=== PATIENT | female | born 1970 | race Caucasian/White ===

== ENCOUNTER → 2020-08-14 15:30 | Outpatient (BNVA) | payer MEDICARE, MEDICAID, SELFPAY | PROVIDERS: Visit Provider Physician Assistant | DX: R11.2 Nausea with vomiting, unspecified (principal) | CPT/HCPCS: 99212 ==

== ENCOUNTER → 2020-09-08 07:45 | Outpatient (REF) | payer MEDICARE, MEDICAID, SELFPAY ==
--- NOTE | 2020-09-08 07:53 | NM_ITS ---
EXAMINATION: RADIONUCLIDE SOLID FOOD GASTRIC EMPTYING 4-HOUR STUDY CLINICAL INFORMATION: Nausea and vomiting. COMPARISON: No previous gastric emptying study is available for comparison. TECHNIQUE: A standard meal consisting of 4 oz of Egg Beaters brand tagged with 1.0 mCi Tc-99m Sulfur Colloid, 8 oz water and 2 slices of toast with jelly was administered orally to the patient. Images were obtained using a dual head gamma camera in the anterior and posterior projections over of the stomach immediately post ingestion and at hourly intervals up to 3 hours post ingestion. Images were not obtained at 4 hours due to the minimal retention at 3 hours. The anterior and posterior counts at each time interval were averaged using the geometric mean and expressed as percentage of the immediate post ingestion counts. FINDINGS: There is good visualization of activity in the stomach immediately post ingestion. As the study progresses, there is good clearance of activity from the stomach and visualization of progressively increasing small bowel activity. By the end of the study, there is almost no retention noted in the stomach. Retention in the stomach at each time interval was: 1 hour 63% (normal 37%-90%) 2 hours 21% (normal 30%-60%) 3 hours 7% 4 hours (Not Obtained) (normal 0%-10%) NM/NM gastric emptying study IMPRESSION: Normal solid food gastric emptying study.
== END ==
LOC: HO.NUCMED 07:45
PROVIDERS: Visit Provider Physician Assistant
DX: R11.2 Nausea with vomiting, unspecified (principal)
CPT/HCPCS: 78264; A9541

== ENCOUNTER → 2020-09-13 08:40 | Outpatient (BNVA) | payer MEDICARE, MEDICAID, SELFPAY | PROVIDERS: Visit Provider Physician Assistant | DX: R11.2 Nausea with vomiting, unspecified (principal); E11.9 Type 2 diabetes mellitus without complications; F17.200 Nicotine dependence, unspecified, uncomplicated; Z79.899 Other long term (current) drug therapy | CPT/HCPCS: Q3014 ==

== ENCOUNTER → 2020-12-12 10:32 | Outpatient (BNVA) | payer MEDICARE, MEDICAID, SELFPAY | PROVIDERS: PCP Hospitalist; Visit Provider Physician Assistant | DX: Z13.89 Encounter for screening for other disorder (principal) | CPT/HCPCS: Q3014 ==

== ENCOUNTER 2021-02-07 09:01 | Outpatient (REF) | payer MEDICARE, MEDICAID, SELFPAY ==
--- NOTE | ~2021-02-07 | MM_ITS ---
EXAMINATION: MM SCREENING DIGITAL BREAST TOMOSYNTHESIS, BILATERAL CLINICAL INFORMATION: Screening. Asymptomatic. The lifetime risk of breast cancer based on the Tyrer-Cuzick Model is 10%. COMPARISON: Mammography: 08/09/2019, 08/06/2018, 07/24/2017 TECHNIQUE: Digital breast tomosynthesis is performed in both the craniocaudal and mediolateral oblique views along with computer-aided detection (CAD). Synthesized 2D images are generated from the tomosynthesis. FINDINGS: There are scattered areas of fibroglandular density (ACR BI-RADS breast composition Category b). There are no significant masses, abnormal calcifications, or other abnormalities. No significant changes from prior exam. MM/MM tomosynthesis screening BI IMPRESSION: No mammographic evidence of malignancy. ASSESSMENT: BI-RADS 1: Negative RECOMMENDATION: Routine annual mammography screening. This patient's information was entered into a reminder system with a target due date for their next mammogram.
== END 2021-02-07 09:02 | disposition home or self-care (01) ==
LOC: HO.MAMMO 09:01
PROVIDERS: PCP Hospitalist; Visit Provider Hospitalist
DX: Z12.31 Encounter for screening mammogram for malignant neoplasm of breast (principal)
CPT/HCPCS: 77063; 77067

== ENCOUNTER → 2021-03-12 08:40 | Outpatient (BNVA) | payer MEDICARE, MEDICAID, SELFPAY | PROVIDERS: PCP Hospitalist; Visit Provider Physician Assistant | CPT/HCPCS: Q3014 ==

== ENCOUNTER 2022-02-14 13:53 | Outpatient (REF) | payer MEDICARE, MEDICAID, SELFPAY ==
--- NOTE | ~2022-02-14 | MM_ITS ---
EXAMINATION: MM SCREENING DIGITAL BREAST TOMOSYNTHESIS, BILATERAL CLINICAL INFORMATION: Screening. Asymptomatic. The lifetime risk of breast cancer based on the Tyrer-Cuzick Model is 9.4%. COMPARISON: Mammography: 02/07/2021 and studies dating back to 07/24/2017. TECHNIQUE: Digital breast tomosynthesis is performed in both the craniocaudal and mediolateral oblique views along with computer-aided detection (CAD). Synthesized 2D images are generated from the tomosynthesis. Bilateral exaggerated craniocaudal views also performed. FINDINGS: The breasts are almost entirely fatty (ACR BI-RADS breast composition Category a). There are no new significant masses, abnormal calcifications, or other abnormalities. Density about the deep superior aspect of the left breast is seen to have been present on previous study of 08/09/2019 and partially seen on study of 07/24/2017 and on Tomosynthesis views appears to have some fat within it and likely represents a lymph node. MM/MM tomosynthesis screening BI IMPRESSION: There are no significant changes from prior study. ASSESSMENT: BI-RADS 2: Benign. RECOMMENDATION: Routine annual mammography screening. This patient's information was entered into a reminder system with a target due date for their next mammogram.
== END 2022-02-14 13:54 | disposition home or self-care (01) ==
LOC: HO.MAMMO 13:53
PROVIDERS: Visit Provider Hospitalist
DX: Z12.31 Encounter for screening mammogram for malignant neoplasm of breast (principal)
CPT/HCPCS: 77063; 77067

== ENCOUNTER 2023-03-10 14:43 | Outpatient (REF) | payer MEDICARE, MEDICAID, SELFPAY ==
--- NOTE | ~2023-03-10 | MM_ITS ---
EXAMINATION: MM SCREENING DIGITAL BREAST TOMOSYNTHESIS, BILATERAL CLINICAL INFORMATION: Screening. Asymptomatic. The lifetime risk of breast cancer based on the Tyrer-Cuzick Model is 9%. COMPARISON: Mammography: 02/14/2022, 02/07/2021, 08/09/2019 TECHNIQUE: Digital breast tomosynthesis is performed in both the craniocaudal and mediolateral oblique views along with computer-aided detection (CAD). Synthesized 2D images are generated from the tomosynthesis. FINDINGS: The breasts are almost entirely fatty (ACR BI-RADS breast composition Category a). There are no significant masses, abnormal calcifications, or other abnormalities. No developing density or architectural abnormality. Low left axillary node is similar to prior exams. The axilla and skin contours are unremarkable. MM/MM tomosynthesis screening BI IMPRESSION: No mammographic evidence of malignancy. ASSESSMENT: BI-RADS 2: Benign RECOMMENDATION: Routine annual mammography screening. This patient's information was entered into a reminder system with a target due date for their next mammogram.
== END 2023-03-10 14:44 | disposition home or self-care (01) ==
LOC: HO.MAMMO 14:43
PROVIDERS: Visit Provider Hospitalist
DX: Z12.31 Encounter for screening mammogram for malignant neoplasm of breast (principal)
CPT/HCPCS: 77063; 77067

== ENCOUNTER 2023-04-16 10:10 | Outpatient (AMB) | payer MEDICARE, MEDICAID, SELFPAY ==
--- NOTE | 2023-04-16 10:20 | MHC.OFFVIS ---
Intake Vital Signs 04/16/23 10:24 Height 5 ft Weight 175 lb BMI 34.2 BP 99/68 Blood Pressure Location Lt brachial Position Sitting Pulse 72 Intake Visit Reasons: colonoscopy screening Intake Note: Patient follow up for Colonoscopy screening. Patient denies any GI issues. Resource Room Teacher Required: No Accompanied by: Employee Allergies amoxicillin [AMOXICILLIN] Allergy (Unknown, Unverified 06/22/20 19:20) UNKNOWN fluphenazine [From PROLIXIN] Allergy (Unknown, Unverified 06/22/20:20) UNKNOWN ibuprofen [IBUPROFEN] Allergy (Unknown, Unverified 06/22/20:) UNKNOWN penicillin G procaine Allergy (Unknown, Verified 05/25/20 00:00) Penicillins [PENICILLINS] Allergy (Unknown, Unverified 06/22/20:) UNKNOWN Ibuprofen Allergy (Unknown, Uncoded 05/25/20 00:00) PROLIXIN Allergy (Unknown, Uncoded 05/25/20 00:00) Medication List - Last Reconciled 04/16/23 by Ev Chin PA-C acetaminophen 650 mg PO Q6H PRN atorvastatin 10 mg PO BEDTIME bisacodyl 10 mg NC DAILY PRN clozapine (Clozaril) 200 mg PO BID famotidine 40 mg PO DAILY fluoxetine 40 mg PO DAILY furosemide (Lasix) 20 mg PO DAILY levetiracetam (Keppra) 250 mg PO BID levothyroxine 50 mcg PO DAILY metformin 500 mg PO DAILY methylcellulose (laxative) (Citrucel) 500 mg PO BID metoprolol succinate ER 50 mg PO DAILY sennosides (senna) 8.6 mg PO DAILY sodium chloride 1,000 mg PO DAILY HPI HPI Comments History of Present Illness Details In a 52-year-old female referred for screening colonoscopy. She is accompanied by patient advocate. 2020 Cologuard negative referred for screening colonoscopy- Patient states no abdominal pain, she has a good appetite. She has no GI or general complaints PFSH Medical History Anxiety Convulsions COPD (chronic obstructive pulmonary disease) Diabetes Glaucoma Hyponatremia Hypothyroid Low back pain Nausea & vomiting Schizophrenia Smoker Social History Household Members: Other Household Members Other:: lives in facility Housing: Jail Alcohol intake: former Years Smoked: currently nicotine patch due to lock down at facility Substance Use Type: Crack/Cocaine Current occupational status: disabled Review of Systems Const All systems reviewed & are unremarkable except as noted in HPI and below Card Denies chest pain and Denies dyspnea Resp Denies dyspnea Physical Exam Vital Signs: Last Vital Signs Pulse 72 04/16/23 10:24 BP 99/68 04/16/23 10:24 BMI result Body Mass Index 34.2 Const General: cooperative and healthy appearing Orientation/consciousness: patient oriented x3 Eyes Conjunctivae: conjunctivae normal Sclerae: sclerae normal Resp Effort & Inspection: normal respiratory effort and able to speak in complete sentences Auscultation: clear to auscultation bilaterally and no wheezes Cardio Rate: regular rate Rhythm: regular rhythm Heart sounds: S1 normal heart sound present and S2 normal heart sound present GI Palpation (GI): Soft to palpation and nontender Auscultation: normal bowel sounds Neuro General: patient oriented x3 Extrem General: Yes full ROM Psych Speech and movement: Clear speech present Affect: Labile affect present Attitude: cooperative Thought process: Normal thought process present Assessment & Plan Assessment & Plan (1) Screen for colon cancer: Comment: Cologuard negative, no GI complaints, typically repeat Cologuard 3 years /or colonoscopy-recommended follow-up GI sooner if indicated. Code(s): Z12.11 - Encounter for screening for malignant neoplasm of colon Plan: Call placed to Carol-from patient [facility] (she did answer, unfortunately she was on vacation we did apologize) (2) Nausea: Comment: Call placed to Carol-from [facility] (she did answer, unfortunately she was on vacation we did apologize) States patient has no issues with bowels however she has nausea typically when she smokes cigarettes without eating. Otherwise no GI complaints Reviewed negative Cologuard 2020, typically repeat 3 years, with Cologuard or colonoscopy-next follow-up would be in 1 year if nothing indicated prior to that. Code(s): R11.0 - Nausea Plan: Follow-up 1 year sooner if indicated, colonoscopy/Cologuard discussion Patient Instructions: 52-year-old female with referred for screening colonoscopy, normal bowel pattern Reported nausea when smoking tobacco without eating-resolves with food- Negative Cologuard 2020-repeat screening in 1 year with Cologuard or colonoscopy whenever preferred by PCP/patient Encouraged to call with any questions or concerns Appreciate the opportunity the patient Coding Level of Care Code Est Pt Level 3 (85619) Diagnoses Screen for colon cancer Z12.11 Nausea R11.0 Time Spent (min) 30
[2023-04-16 10:24] VITALS: BP 99/68; PULSE 72; BMI 34.2
== END 2023-04-16 11:05 | disposition home or self-care (01) ==
PROVIDERS: PCP Hospitalist; Visit Provider Physician Assistant
DX: Z12.11 Encounter for screening for malignant neoplasm of colon (principal); R11.0 Nausea
CPT/HCPCS: 99213

== ENCOUNTER → 2023-04-16 10:10 | Outpatient (BNVA) | payer MEDICARE, MEDICAID, SELFPAY | PROVIDERS: PCP Hospitalist; Visit Provider Physician Assistant | DX: Z12.11 Encounter for screening for malignant neoplasm of colon (principal); R11.0 Nausea | CPT/HCPCS: 99212 ==

== ENCOUNTER 2023-04-24 12:57 | Outpatient (AMB) | payer MEDICARE, MEDICAID, SELFPAY ==
[2023-04-24 12:58] VITALS: BP 116/80; BMI 34.2
--- NOTE | 2023-04-24 12:58 | A.OFFVIS_ITS ---
Intake Vital Signs 04/24/23 12:58 Height 5 ft Weight 175 lb BMI 34.2 BP 116/80 Blood Pressure Location Lt brachial Position Sitting Intake Visit Reasons: New patient Annual Criminal Investigative Agent Required: No Allergies amoxicillin [AMOXICILLIN] Allergy (Unknown, Unverified 04/24/23 13:07) UNKNOWN fluphenazine [From PROLIXIN] Allergy (Unknown, Unverified 04/24/23 13:07) UNKNOWN ibuprofen [IBUPROFEN] Allergy (Unknown, Unverified 04/24/23 13:07) UNKNOWN penicillin G procaine Allergy (Unknown, Verified 04/24/23 13:07) Unknown Penicillins [PENICILLINS] Allergy (Unknown, Unverified 04/24/23 13:07) UNKNOWN Ibuprofen Allergy (Unknown, Uncoded 04/24/23 13:07) Unknown PROLIXIN Allergy (Unknown, Uncoded 04/24/23 13:07) Unknown Post menopausal: Yes (unknown onset) HPI HPI Comments History of Present Illness Details Presenting for annual exam. No complaints. Last Pap/HPV is unknown Last Mammogram was BI-RADS 2 in 03/28 Last colon cancer screening was recommended by GI 2020 by using Cologuard which was negative, the recommendation was to repeat in 3 years [facility] Medical History Anxiety Convulsions COPD (chronic obstructive pulmonary disease) Diabetes Glaucoma Hyponatremia Hypothyroid Low back pain Nausea & vomiting Schizophrenia Smoker Social History Household Members: Other Household Members Other:: lives in facility Housing: [facility] Alcohol intake: former Years Smoked: currently nicotine patch due to lock down at facility Substance Use Type: Crack/Cocaine Current occupational status: disabled Female Reproductive History Menstrual Total pregnancies: 1 Ab spontaneous: 1 Review of Systems Const All systems reviewed & are unremarkable except as noted in HPI and below Card Reports as per HPI Resp Reports as per HPI GI Reports as per HPI and Reports no additional complaints Reports as per HPI Physical Exam Vital Signs: Last Vital Signs BP 116/80 04/24/23 12:58 BMI result Body Mass Index 34.2 Const General: cooperative, healthy appearing and comfortable Chest Chest palpation & inspection: normal inspection of the chest and normal palpation of entire chest wall Breast/axilla inspection: normal inspection of the breasts and normal inspection of the axillae Breast/axilla palpation: normal palpation of the breasts, normal palpation of the axillae and no axillary lymphadenopathy Resp Effort & Inspection: normal respiratory effort Auscultation: clear to auscultation bilaterally Percussion: percussion normal Cardio Palpation: normal PMI Rate: regular rate Rhythm: regular rhythm Heart sounds: no murmurs and no rubs Peripheral pulses: Peripheral pulses 2+ throughout GI Inspection: Yes normal to inspection Palpation (GI): Soft to palpation, nontender, no guarding, not rigid and No hepatosplenomegaly present Percussion: Yes normal to percussion Auscultation: normal bowel sounds Rectal Exam - Female: deferred General: Yes bladder normal to palpation External Female Exam: No lesion Speculum Exam - Vagina: normal appearance of the vagina, normal palpation, normal vaginal discharge and not erythematous Speculum Exam - Cervix: normal appearance of the cervix, normal palpation and Other cervical findings present (Small endocervical polyp and posterior cervical lip lesion) Bimanual exam- vagina & uterus: normal bimanual exam, normal palpation, uterine size normal, bladder normal to palpation, consistency normal and normal palpation Bimanual Exam- Adnexa, other: normal adnexae, no masses and no tenderness Assessment & Plan Assessment & Plan (1) Well woman exam: Code(s): Z01.419 - Encounter for gynecological examination (general) (routine) without abnormal findings Plan: Co testing done. Counseled the patient about the recommended dietary allowance of 1200 mg of Calcium & 600 IU of vitamin D. Mammogram to be scheduled in 03/29 . The patient was instructed to perform monthly self-breast exams and schedule annual exam in a year; all questions answered and the patient verbalized understanding. (2) Endocervical polyp: Code(s): N84.1 - Polyp of cervix uteri Plan: Recommended cervical polypectomy, the patient cannot sign for her self for any procedure, recommended for the patient to come back with patient was of 30 to sign on her be have for polypectomy and cervical biopsy. Instructions given to the patient and her CHILD WELFARE CONSULTANT to schedule a 2 week appointment for polypectomy /cervical biopsy a complaining by [facility] authority to sign a consent on her behalf (3) Lesion of cervix: Code(s): N88.9 - Noninflammatory disorder of cervix uteri, unspecified Orders: Orders Pap Smear Today Z01.419 - Encounter for gynecological examination (general) (routine) without abnormal findings Coding Level of Care Code New Pt Prev Care 40-64y(36648) Diagnoses Well woman exam Z01.419 Endocervical polyp N84.1 Lesion of cervix N88.9
== END 2023-04-24 13:40 | disposition home or self-care (01) ==
LOC: HO.HWS 12:57
PROVIDERS: PCP Hospitalist; Visit Provider Obstetrics & Gynecology
DX: Z01.419 Encounter for gynecological examination (general) (routine) without abnormal findings (principal); N84.1 Polyp of cervix uteri; N88.9 Noninflammatory disorder of cervix uteri, unspecified
CPT/HCPCS: G0101

== ENCOUNTER 2023-04-24 12:57 | Outpatient (REF) | payer MEDICARE, MEDICAID, SELFPAY ==
[2023-05-02 02:48] LABS: HPV mRNA E6/E7 rflx Not Detected (Not Detected)
== END 2023-04-24 12:58 | disposition home or self-care (01) ==
LOC: HO.LNP 12:57
PROVIDERS: PCP Hospitalist; Visit Provider Obstetrics & Gynecology
DX: Z01.419 Encounter for gynecological examination (general) (routine) without abnormal findings (principal); Z11.51 Encounter for screening for human papillomavirus (HPV); N88.9 Noninflammatory disorder of cervix uteri, unspecified; N84.1 Polyp of cervix uteri
CPT/HCPCS: 87624; 88142; G0101

== ENCOUNTER 2023-09-01 13:41 | Outpatient (REF) | payer MEDICARE, MEDICAID, SELFPAY ==
--- NOTE | ~2023-09-01 | XR_ITS ---
EXAMINATION: XR FOOT, LEFT CLINICAL INFORMATION: Pain COMPARISON: Radiographs 05/25/2020 TECHNIQUE: 3 views of the foot FINDINGS: No acute fracture or dislocation. Mild degenerative changes of the first metatarsophalangeal joint with borderline loss of joint space. No tibiotalar joint effusion. Well-corticated calcifications anterior and posterior to the tibia may reflect sequelae of remote prior trauma. ORIF of the medial and lateral malleoli again seen. Soft tissue swelling about the fifth digit. XR/XR foot LT min 3V IMPRESSION: 1. Mild degenerative changes of the first metatarsophalangeal joint with borderline loss of joint space. 2. Well-corticated calcifications anterior and posterior to the tibia may reflect sequelae of remote prior trauma. 3. ORIF of the medial and lateral malleoli again seen. 4. Soft tissue swelling about the fifth digit.
== END 2023-09-01 13:42 | disposition home or self-care (01) ==
LOC: HO.XRAY 13:41
PROVIDERS: PCP Hospitalist; Visit Provider Hospitalist
DX: M79.672 Pain in left foot (principal)
CPT/HCPCS: 73630

== ENCOUNTER 2023-10-22 12:45 | Outpatient (AMB) | payer MEDICARE, MEDICAID, SELFPAY ==
[2023-10-22 12:48] VITALS: BP 128/66; BMI 34.4
--- NOTE | 2023-10-22 12:48 | MHC.OFFVIS ---
Intake Vital Signs 10/22/23 12:48 Height 5 ft Weight 176 lb 4 oz BMI 34.4 BP 128/66 Blood Pressure Location Lt brachial Position Sitting Intake Visit Reasons: Endo polyp cervical removal/30 min Allergies amoxicillin [AMOXICILLIN] Allergy (Unknown, Unverified 10/22/23 12:50) UNKNOWN fluphenazine [From PROLIXIN] Allergy (Unknown, Unverified 10/22/23 12:50) UNKNOWN ibuprofen [IBUPROFEN] Allergy (Unknown, Unverified 10/22/23 12:50) UNKNOWN penicillin G procaine Allergy (Unknown, Verified 10/22/23 12:50) Unknown Penicillins [PENICILLINS] Allergy (Unknown, Unverified 10/22/23 12:50) UNKNOWN Ibuprofen Allergy (Unknown, Uncoded 10/22/23 12:50) Unknown PROLIXIN Allergy (Unknown, Uncoded 10/22/23 12:50) Unknown HPI HPI Comments History of Present Illness Details Presenting for cervical polypectomy/cervical biopsy. The patient was seen in 04/27, diagnosed endocervical polyp and posterior cervical lip lesion, the recommendation was to schedule an appointment for endocervical polypectomy/cervical lip biopsy within 2 weeks with the patient is guardian present to sign the surgical consent. The patient is presenting to the with her TEMPLATE CLERK without a legal guardian who can sign the consent [facility] Medical History Anxiety Convulsions COPD (chronic obstructive pulmonary disease) Diabetes Glaucoma Hyponatremia Hypothyroid Low back pain Nausea & vomiting Schizophrenia Smoker Social History Household Members: Other Household Members Other:: lives in facility Housing: Snf Alcohol intake: former Years Smoked: currently nicotine patch due to lock down at facility Substance Use Type: Crack/Cocaine Current occupational status: disabled Review of Systems Const All systems reviewed & are unremarkable except as noted in HPI and below Physical Exam Vital Signs: Last Vital Signs BP 128/66 10/22/23 12:48 BMI result Body Mass Index 34.4 General: Yes no CVA tenderness External Female Exam: normal external appearance and normal appearance of the urethra Speculum Exam - Vagina: normal appearance of the vagina, normal palpation, no lesions and no masses Speculum Exam - Cervix: normal appearance of the cervix, normal palpation, no lesions, no masses, nontender and Other cervical findings present (Endocervical polyp, posterior cervical lesion) Bimanual exam- vagina & uterus: normal bimanual exam, normal palpation, uterine size normal, normal palpation, uterine shape normal, No Cervical tenderness present and non-tender Bimanual Exam- Adnexa, other: normal adnexae Back/Spine/Pelvis Back: no CVA tenderness Assessment & Plan Assessment & Plan (1) Lesion of cervix: Code(s): N88.9 - Noninflammatory disorder of cervix uteri, unspecified Plan: Discussed the case with Mayela Nash, assistant in nursing at [facility] when the patient resides to coordinate and locate the patient legal guardian and schedule a phone call for counseling regarding the surgical consent for the procedure and to schedule an appointment for polypectomy/cervical biopsy after jalyn. (2) Endocervical polyp: Code(s): N84.1 - Polyp of cervix uteri Plan: See above Coding Level of Care Code Est Pt Level 3 (43348) Diagnoses Lesion of cervix N88.9 Endocervical polyp N84.1
== END 2023-10-22 15:29 | disposition home or self-care (01) ==
LOC: HO.HWS 12:46
PROVIDERS: PCP Hospitalist; Visit Provider Obstetrics & Gynecology
DX: N88.9 Noninflammatory disorder of cervix uteri, unspecified (principal); N84.1 Polyp of cervix uteri
CPT/HCPCS: 99213

== ENCOUNTER → 2023-10-22 12:45 | Outpatient (BNVA) | payer MEDICARE, MEDICAID, SELFPAY | PROVIDERS: PCP Hospitalist; Visit Provider Obstetrics & Gynecology | DX: N88.9 Noninflammatory disorder of cervix uteri, unspecified (principal); N84.1 Polyp of cervix uteri | CPT/HCPCS: 99212 ==

== ENCOUNTER 2023-11-10 14:56 | Outpatient (AMB) | payer MEDICARE, MEDICAID, SELFPAY ==
--- NOTE | 2023-11-10 14:54 | MHC.OFFVIS ---
Intake Intake Visit Reasons: consent for polypectomy Allergies amoxicillin [AMOXICILLIN] Allergy (Unknown, Unverified 10/22/23 12:50) UNKNOWN fluphenazine [From PROLIXIN] Allergy (Unknown, Unverified 10/22/23 12:50) UNKNOWN ibuprofen [IBUPROFEN] Allergy (Unknown, Unverified 10/22/23 12:50) UNKNOWN penicillin G procaine Allergy (Unknown, Verified 10/22/23 12:50) Unknown Penicillins [PENICILLINS] Allergy (Unknown, Unverified 10/22/23 12:50) UNKNOWN Ibuprofen Allergy (Unknown, Uncoded 10/22/23 12:50) Unknown PROLIXIN Allergy (Unknown, Uncoded 10/22/23 12:50) Unknown HPI HPI Comments History of Present Illness Details A telehealth visit was organized by Byron jara service tuckerer and legal guardian with the presence on the phone of Anna Velasquez who is the product director in [facility] were the patient is a resident to discuss the surgical consent for endocervical polypectomy [facility] Medical History Anxiety Convulsions Glaucoma Smoker Hypothyroid Low back pain Hyponatremia COPD (chronic obstructive pulmonary disease) Schizophrenia Diabetes Nausea & vomiting Social History Household Members: Other Household Members Other:: lives in facility Housing: Residential Alcohol intake: former Years Smoked: currently nicotine patch due to lock down at facility Substance Use Type: Crack/Cocaine Current occupational status: disabled Assessment & Plan Assessment & Plan (1) Endocervical polyp: Code(s): N84.1 - Polyp of cervix uteri Plan: Discussed with laurel Grover and the patient is legal guardian with the presence on the phone of Anna Velasquez who is the product director in [facility] as a witness, the procedure technique, alternatives & all the risks associated with the procedure including but not limited to: bleeding , infection, uterine perforation, injury to bladder, vessels, bowels, possible need for transfusion with all its risks, and others. All questions were answered, laurel Grover and the patient is legal guardian gave verbal consent to the procedure on the phone. Instructions given to Anna Velasquez , the product director in [facility] to schedule an appointment as soon as possible for a cervical polypectomy. Telehealth Telehealth Location of provider rendering services: practice address Location of patient: address on file Patient Identification confirmed using: Name, : Yes Telehealth method: voice only Patient verbally consented to treatment: Yes Patient verbally consented to billing insurance company: Yes Patient informed of any privacy concerns related to visit: Yes Coding Level of Care Code Tele Est Pt Level 1 (73259) Diagnoses Endocervical polyp N84.1
== END 2023-11-10 16:15 | disposition home or self-care (01) ==
LOC: HO.HWS 14:56
PROVIDERS: PCP Hospitalist; Visit Provider Obstetrics & Gynecology
DX: N84.1 Polyp of cervix uteri (principal)
CPT/HCPCS: 99211

== ENCOUNTER → 2023-11-10 14:56 | Outpatient (BNVA) | payer MEDICARE, MEDICAID, SELFPAY | PROVIDERS: PCP Hospitalist; Visit Provider Obstetrics & Gynecology ==

== ENCOUNTER 2023-11-12 09:33 | Outpatient (AMB) | payer MEDICARE, MEDICAID, SELFPAY ==
--- NOTE | 2023-11-12 09:55 | A.OFFVIS_ITS ---
Intake Vital Signs 11/12/23 09:56 Height 5 ft Weight 174 lb 2.643 oz BMI 34.0 BP 128/82 Intake Visit Reasons: polypectomy Cell Manager Required: No Information Interpreted: non-clinical & clinical Textiles Sales Representative: Textiles Sales Representative Present (Jazmín Vizcarra VINITA) Accompanied by: Employee Allergies amoxicillin [AMOXICILLIN] Allergy (Unknown, Unverified 11/12/23 10:03) UNKNOWN fluphenazine [From PROLIXIN] Allergy (Unknown, Unverified 11/12/23 10:03) UNKNOWN ibuprofen [IBUPROFEN] Allergy (Unknown, Unverified 11/12/23 10:03) UNKNOWN penicillin G procaine Allergy (Unknown, Verified 11/12/23 10:03) Unknown Penicillins [PENICILLINS] Allergy (Unknown, Unverified 11/12/23 10:03) UNKNOWN Ibuprofen Allergy (Unknown, Uncoded 11/12/23 10:03) Unknown PROLIXIN Allergy (Unknown, Uncoded 11/12/23 10:03) Unknown Post menopausal: Yes HPI HPI Comments History of Present Illness Details Presenting for endocervical polypectomy [facility] Medical History Anxiety Convulsions Glaucoma Smoker Hypothyroid Low back pain Hyponatremia COPD (chronic obstructive pulmonary disease) Schizophrenia Diabetes Nausea & vomiting Social History Household Members: Other Household Members Other:: lives in facility Housing: Correction Alcohol intake: former Years Smoked: currently nicotine patch due to lock down at facility Substance Use Type: Crack/Cocaine Current occupational status: disabled Review of Systems Const All systems reviewed & are unremarkable except as noted in HPI and below Physical Exam Vital Signs: Last Vital Signs BP 128/82 11/12/23 09:56 BMI result Body Mass Index 34.0 General: Yes no CVA tenderness External Female Exam: normal external appearance and normal appearance of the urethra Speculum Exam - Vagina: normal appearance of the vagina, normal palpation, no lesions and no masses Speculum Exam - Cervix: normal appearance of the cervix, normal palpation, no lesions, no masses, nontender and Other cervical findings present (Endocervical polyp) Bimanual exam- vagina & uterus: normal bimanual exam, normal palpation, uterine size normal, normal palpation, uterine shape normal, No Cervical tenderness present and non-tender Bimanual Exam- Adnexa, other: normal adnexae Back/Spine/Pelvis Back: no CVA tenderness Office Procedures OCCUPATIONAL HEALTH MANAGER Biopsy On 11/10/2023 Verbal consent on the phone for the procedure was taken from Byron jara, service commissioner and legal guardian with the presence on the phone of Anna Velasquez who is the commercial sales director in [facility] Using a long Meena Clamp the endocervical polyp was grasped and twisted around till it came off, hemostasis was secured using pressure. The patient tolerated the procedure well. Instructions were given to the patient to call if bleeding, temp>100.4 occur. The patient verbalized understanding and agreed with the plan. This note was generated with a voice recognition program. Some errors may have been overlooked during the review of this note. Sometimes these errors may affect the content or meaning of a given sentence. 24331-[id number] of Cervix Procedure code (CPT) selection complete Assessment & Plan Assessment & Plan (1) Endocervical polyp: Code(s): N84.1 - Polyp of cervix uteri Plan: Endocervical polypectomy done, see procedure note Orders: Orders AMB OCCUPATIONAL HEALTH MANAGER Biopsy Today N84.1 - Polyp of cervix uteri Coding Level of Care Code Procedure Only Diagnoses Endocervical polyp N84.1 CPT Codes OCCUPATIONAL HEALTH MANAGER Biopsy - CPT: 53921-Gqdj[place] of Cervix ([id number])
[2023-11-12 09:56] VITALS: BP 128/82; BMI 34.0
== END 2023-11-12 11:30 | disposition home or self-care (01) ==
LOC: HO.HWS 09:33
PROVIDERS: PCP Hospitalist; Visit Provider Obstetrics & Gynecology
DX: N84.1 Polyp of cervix uteri (principal)
CPT/HCPCS: 57500

== ENCOUNTER 2023-11-12 09:33 | Outpatient (REF) | payer MEDICARE, MEDICAID, SELFPAY | END 2023-11-12 09:34 | disposition home or self-care (01) | LOC: HO.LNP 09:33 | PROVIDERS: PCP Hospitalist; Visit Provider Obstetrics & Gynecology | DX: N84.1 Polyp of cervix uteri (principal) | CPT/HCPCS: 57500; 88305 ==

== ENCOUNTER 2023-12-23 08:41 | Outpatient (AMB) | payer MEDICARE, MEDICAID, SELFPAY ==
--- NOTE | 2023-12-23 08:49 | A.OFFVIS_ITS ---
Intake Vital Signs 12/23/23 08:52 Height 5 ft Weight 174 lb 2.643 oz BMI 34.0 BP 118/72 Intake Visit Reasons: biopsy results Allergies amoxicillin [AMOXICILLIN] Allergy (Unknown, Unverified 11/12/23 10:03) UNKNOWN fluphenazine [From PROLIXIN] Allergy (Unknown, Unverified 11/12/23 10:03) UNKNOWN ibuprofen [IBUPROFEN] Allergy (Unknown, Unverified 11/12/23 10:03) UNKNOWN penicillin G procaine Allergy (Unknown, Verified 11/12/23 10:03) Unknown Penicillins [PENICILLINS] Allergy (Unknown, Unverified 11/12/23 10:03) UNKNOWN Ibuprofen Allergy (Unknown, Uncoded 11/12/23 10:03) Unknown PROLIXIN Allergy (Unknown, Uncoded 11/12/23 10:03) Unknown HPI HPI Comments History of Present Illness Details Presenting for follow-up status post polypectomy. Doing well with no complaints. The pathology showed the following: Endocervix, polypectomy: Endocervical polyp; no atypia identified [facility] Medical History Anxiety Convulsions Glaucoma Smoker Hypothyroid Low back pain Hyponatremia COPD (chronic obstructive pulmonary disease) Schizophrenia Diabetes Nausea & vomiting Social History Household Members: Other Household Members Other:: lives in facility Housing: Longterm Alcohol intake: former Years Smoked: currently nicotine patch due to lock down at facility Substance Use Type: Crack/Cocaine Current occupational status: disabled Review of Systems Const All systems reviewed & are unremarkable except as noted in HPI and below Reports as per HPI and Reports no additional complaints GI Reports no additional complaints Reports no additional complaints Physical Exam Vital Signs: Last Vital Signs BP 118/72 12/23/23 08:52 BMI result Body Mass Index 34.0 Assessment & Plan Assessment & Plan (1) Endocervical polyp: Code(s): N84.1 - Polyp of cervix uteri Plan: Discussed with the patient the results the pathology, the patient was reassured, all questions answered, the patient verbalized understanding. Coding Level of Care Code Est Pt Level 3 (26391) Diagnoses Endocervical polyp N84.1
[2023-12-23 08:52] VITALS: BP 118/72; BMI 34.0
== END 2023-12-23 16:16 | disposition home or self-care (01) ==
LOC: HO.HWS 08:41
PROVIDERS: PCP Hospitalist; Visit Provider Obstetrics & Gynecology
DX: N84.1 Polyp of cervix uteri (principal)
CPT/HCPCS: 99213

== ENCOUNTER → 2023-12-23 08:41 | Outpatient (BNVA) | payer MEDICARE, MEDICAID, SELFPAY | PROVIDERS: PCP Hospitalist; Visit Provider Obstetrics & Gynecology | DX: N84.1 Polyp of cervix uteri (principal); Z86.010 Personal history of colon polyps | CPT/HCPCS: 99212 ==

== ENCOUNTER 2024-03-11 13:59 | Outpatient (REF) | payer MEDICARE, MEDICAID, SELFPAY | END 2024-03-11 14:00 | disposition home or self-care (01) | LOC: HO.MAMMO 13:59 | PROVIDERS: PCP Hospitalist; Visit Provider Hospitalist | DX: Z12.31 Encounter for screening mammogram for malignant neoplasm of breast (principal) | CPT/HCPCS: 77063; 77067 ==

== ENCOUNTER → 2024-03-11 14:15 | Outpatient (BNV) | payer MEDICARE, MEDICAID, SELFPAY | PROVIDERS: PCP Hospitalist; Visit Provider Radiology Diagnostic Radiology | DX: Z12.31 Encounter for screening mammogram for malignant neoplasm of breast (principal) | CPT/HCPCS: 77063; 77067 ==

== ENCOUNTER 2024-04-27 13:13 | Outpatient (AMB) | payer MEDICARE, MEDICAID, SELFPAY ==
--- NOTE | 2024-04-27 13:19 | MHC.OFFVIS ---
Vital Signs 04/27/24 13:20 Height 5 ft Weight 174 lb 2.643 oz BMI 34.0 BP 116/74 Intake Visit Reasons: CAN CARRIER annual exam Underwriting Support Specialist Required: No Information Interpreted: non-clinical & clinical Director Television: Director Television Present (Jazmín Vizcarra VINITA) Accompanied by: Employee Allergies amoxicillin [AMOXICILLIN] Allergy (Unknown, Unverified 04/27/24 13:21) UNKNOWN fluphenazine [From PROLIXIN] Allergy (Unknown, Unverified 04/27/24 13:21) UNKNOWN ibuprofen [IBUPROFEN] Allergy (Unknown, Unverified 04/27/24 13:21) UNKNOWN penicillin G procaine Allergy (Unknown, Verified 04/27/24 13:21) Unknown Penicillins [PENICILLINS] Allergy (Unknown, Unverified 04/27/24 13:21) UNKNOWN Ibuprofen Allergy (Unknown, Uncoded 04/27/24 13:21) Unknown PROLIXIN Allergy (Unknown, Uncoded 04/27/24 13:21) Unknown Post menopausal: Yes HPI Comments Details: Presenting for annual exam. No complaints. Last Pap/HPV was negative in 04/27 Last Mammogram was BI-RADS 1 in 03/29 No previous screening Colonoscopy [facility] Medical History Anxiety Convulsions Glaucoma Smoker Hypothyroid Low back pain Hyponatremia COPD (chronic obstructive pulmonary disease) Schizophrenia Diabetes Nausea & vomiting Social History Household Members: Other Household Members Other:: lives in facility Housing: [facility] Alcohol intake: former Years Smoked: currently nicotine patch due to lock down at facility Substance Use Type: Crack/Cocaine Current occupational status: disabled Female Reproductive History Menstrual Date of last pap smear: 04/29/23 Date of Mammogram: 03/11/24 Review of Systems Const All systems reviewed & are unremarkable except as noted in HPI and below Card Reports as per HPI Resp Reports as per HPI GI Reports as per HPI and Reports no additional complaints Reports as per HPI Physical Exam Vital Signs: Last Vital Signs BP 116/74 04/27/24 13:20 BMI result Body Mass Index 34.0 Const General: cooperative, healthy appearing and comfortable Chest Chest palpation & inspection: normal inspection of the chest and normal palpation of entire chest wall Breast/axilla inspection: normal inspection of the breasts and normal inspection of the axillae Breast/axilla palpation: normal palpation of the breasts, normal palpation of the axillae and no axillary lymphadenopathy Resp Effort & Inspection: normal respiratory effort Auscultation: clear to auscultation bilaterally Percussion: percussion normal Cardio Palpation: normal PMI Rate: regular rate Rhythm: regular rhythm Heart sounds: no murmurs and no rubs Peripheral pulses: Peripheral pulses 2+ throughout GI Inspection: Yes normal to inspection Palpation (GI): Soft to palpation, nontender, no guarding, not rigid and No hepatosplenomegaly present Percussion: Yes normal to percussion Auscultation: normal bowel sounds Rectal Exam - Female: deferred General: Yes bladder normal to palpation External Female Exam: No lesion Speculum Exam - Vagina: normal appearance of the vagina, normal palpation, normal vaginal discharge and not erythematous Speculum Exam - Cervix: normal appearance of the cervix and normal palpation Bimanual exam- vagina & uterus: normal bimanual exam, normal palpation, uterine size normal, bladder normal to palpation, consistency normal and normal palpation Bimanual Exam- Adnexa, other: normal adnexae, no masses and no tenderness Assessment & Plan Assessment & Plan (1) Well woman exam: Code(s): Z01.419 - Encounter for gynecological examination (general) (routine) without abnormal findings Category: Medical Plan: Co testing not indicated. Counseled the patient about the recommended dietary allowance of 1200 mg of Calcium & 600 IU of vitamin D. Instructions given to the patient to schedule next screening Mammogram in 03/29. The patient was referred to GI for screening colonoscopy . The patient was instructed to perform monthly self-breast exams and schedule annual exam in a year. All questions answered and the patient verbalized understanding. Orders: Referrals Gastroenterology Referral Z12.11 - Encounter for screening for malignant neoplasm of colon Coding Level of Care Code Est Pt Prev Care 40-64y(03806) Diagnoses Well woman exam Z01.419
[2024-04-27 13:20] VITALS: BP 116/74; BMI 34.0
== END 2024-04-27 15:07 | disposition home or self-care (01) ==
LOC: HO.HWS 13:13
PROVIDERS: PCP Hospitalist; Visit Provider Obstetrics & Gynecology
DX: Z01.419 Encounter for gynecological examination (general) (routine) without abnormal findings (principal)
CPT/HCPCS: G0101

== ENCOUNTER → 2024-04-27 13:13 | Outpatient (BNVA) | payer MEDICARE, MEDICAID, SELFPAY | PROVIDERS: PCP Hospitalist; Visit Provider Obstetrics & Gynecology | DX: Z01.419 Encounter for gynecological examination (general) (routine) without abnormal findings (principal) | CPT/HCPCS: G0101 ==

== ENCOUNTER 2024-11-10 14:22 | Outpatient (REF) | payer MEDICARE, MEDICAID, SELFPAY ==
[2024-11-10 16:03] LABS: Hematocrit 37.9 % (37.0-47.0); Hemoglobin 12.1 g/dl (12.0-16.0); Mean Corpuscular HGB Conc 31.9 g/dl (31.0-35.0); Mean Corpuscular Hemoglobin 28.7 pg (27.0-33.0); Mean Platelet Volume 10.3 fL (9.4-12.3); Platelet Count 209 X10*3/uL (160-400); Red Blood Count 4.21 X10*6/uL (4.20-5.50); Red Cell Distribution Width 13.9 % (11.0-16.0); White Blood Count 7.5 X10*3/uL (4.8-10.8)
--- OUTSIDE RECORDS SUMMARY | 2024-11-10 16:10 | XMS_ITS | Encounter Summary ---
Author Organization [employer] Address [id number] [place] [id number] Care Team Providers Care Rapid Extractor Operator Name Role Phone Unavailable Primary Care Provider Unavailabl e Encounter Details Date Type Department Care Team (Late st Contact Info) Description 09/01/2024 Lab Requisition [facility] - Main Lab [address] [facility] [place] [address] Camron Sabillon MD [address] [place] [address] Dr [address] [place], [place] Other schizophrenia (CMS/HCC) Social History Tobacco Use Types Packs/Day Years Used Date Smoking Tobacco: Never Assessed Sex and Gender Information Value Date Recorded Sex Assigned at Not on file Gender Identity Not on file Sexual Orientation Not on file documented as of this encounter Plan of Treatment Not on file documented as of this encounter Procedures Procedure Name Priority Date/Time Associated Diagnosis Comments CBC WITH AUTO DIFFERENTIAL Routine 09/01/2024 6:48 AM EST Other schizophrenia (CMS/HCC) CBC AND DIFFERENTIAL Routine 09/01/2024 6:48 AM EST Other schizophrenia (CMS/HCC) documented in this encounter Results * (ABNORMAL) CBC auto differential (09/01/2024 6:48 AM EST) WBC 6.7 4.8 - 10.8 K/[facility] LAB HEMETOLOGY METHOD 09/01/2024 8:06 AM [facility] LAB RBC 3.80 3.80 - 4.80 /[facility] LAB HEMETOLOGY METHOD 09/01/2024 8:06 AM [facility] LAB Hemoglobin 11.0(L) 11.5 - 16.0 g/dL LAB HEMETOLOGY METHOD 09/01/2024 8:06 AM [facility] LAB Hematocrit 34.8(L) 35.0 - 47.0 % LAB HEMETOLOGY METHOD 09/01/2024 8:06 AM [facility] LAB MCV 92.1 79.0 - 98.0 FL LAB HEMETOLOGY METHOD 09/01/2024 8:06 AM [facility] LAB MCH 29.1 27.0 - 32.0 pcg LAB HEMETOLOGY METHOD 09/01/2024 8:06 AM [facility] LAB MCHC 31.6(L) 32.0 - 37.0 g/dL LAB HEMETOLOGY METHOD 09/01/2024 8:06 AM [facility] LAB RDW 13.9 11.0 - 15.0 % LAB HEMETOLOGY METHOD 09/01/2024 8:06 AM [facility] LAB Platelets 216 130 - 400 K/mcL LAB HEMETOLOGY METHOD 09/01/2024 8:06 AM [facility] LAB MPV 10.8 7.0 - 11.0 FL LAB HEMETOLOGY METHOD 09/01/2024 8:06 AM [facility] LAB NRBC 0.0 <1.0 % LAB HEMETOLOGY METHOD 09/01/2024 8:06 AM [facility] LAB NRBC Absolute 0.00 <0.10 K/mcL LAB HEMETOLOGY METHOD 09/01/2024 8:06 AM [facility] LAB Neutrophils Relative 50.7 % LAB HEMETOLOGY METHOD 09/01/2024 8:06 AM [facility] LAB Lymphocytes Relative 35.5 % LAB HEMETOLOGY METHOD 09/01/2024 8:06 AM [facility] LAB Monocytes Relative 10.6 % LAB HEMETOLOGY METHOD 09/01/2024 8:06 AM [facility] LAB Eosinophils Relative 2.5 % LAB HEMETOLOGY METHOD 09/01/2024 8:06 AM [facility] LAB Basophils Relative 0.4 % LAB HEMETOLOGY METHOD 09/01/2024 8:06 AM EST [facility] LAB Immature Granulocytes Relative 0.3 % LAB HEMETOLOGY METHOD 09/01/2024 8:06 AM [facility] LAB Neutrophils Absolute 3.38 1.50 - 7.00 K/mcL LAB HEMETOLOGY METHOD 09/01/2024 8:06 AM EST [facility] LAB Lymphocytes Absolute 2.37 1.00 - 5.00 K/mcL LAB HEMETOLOGY METHOD 09/01/2024 8:06 AM [facility] LAB Monocytes Absolute 0.71 0.20 - 1.00 K/mcL LAB HEMETOLOGY METHOD 09/01/2024 8:06 AM [facility] LAB Eosinophils Absolute 0.17 0.00 - 0.50 K/mcL LAB HEMETOLOGY METHOD 09/01/2024 8:06 AM EST [facility] LAB Basophils Absolute 0.03 0.00 - 0.20 K/mcL LAB HEMETOLOGY METHOD 09/01/2024 8:06 AM [facility] LAB Immature Granulocytes Absolute 0.02 0.00 - 0.03 K/mcL LAB HEMETOLOGY METHOD 09/01/2024 8:06 AM [facility] LAB Blood Venous blood specimen / Unknown 09/01/2024 6:48 AM EST 09/01/2024 7:37 AM EST Camron Sabillon MD LAB BLOOD ORDERABLES [facility] LAB [address] [place] [address], documented in this encounter Visit Diagnoses Diagnosis Other schizophrenia (CMS/HCC) documented in this encounter
--- OUTSIDE RECORDS SUMMARY | 2024-11-10 16:10 | XMS_ITS | Encounter Summary ---
Author Organization [employer] Address [address] [place] [address] Care Team Providers Care Rod Cup Filler Name Role Phone Unavailable Primary Care Provider Unavailabl e Encounter Details Date Type Department Care Team (Late st Contact Info) Description 09/30/2024 Lab Requisition [facility] - Main Lab [address] [facility] [place] [address] Camron Sabillon MD [address] [place] [address] Dr [address] [place], [place] Hyperlipidemia, unspecified; Other long-term (current) drug therapy; Other schizophrenia (CMS/HCC) Social History Tobacco Use [...] Diagnosis Comments CBC WITH AUTO DIFFERENTIAL Routine 09/30/2024 6:56 AM EST Hyperlipidemia, unspecified Other geological manager (current) drug therapy Other schizophrenia (CMS/HCC) CBC AND DIFFERENTIAL Routine 09/30/2024 6:56 AM EST Hyperlipidemia, unspecified Other geological manager (current) drug therapy Other schizophrenia (CMS/HCC) THYROID STIMULATING HORMONE Routine 09/30/2024 6:56 AM EST Hyperlipidemia, unspecified Other long-term (current) drug therapy Other schizophrenia (CMS/HCC) THYROXINE FREE Routine 09/30/2024 6:56 AM EST Hyperlipidemia, unspecified Other geological manager (current) drug therapy Other schizophrenia (CMS/HCC) HEPATIC FUNCTION PANEL Routine 09/30/2024 6:56 AM EST Hyperlipidemia, unspecified Other long-term (current) drug therapy Other schizophrenia (CMS/HCC) documented in this encounter Results * (ABNORMAL) CBC auto differential (09/30/2024 6:56 AM EST) [facility] WBC 6.2 4.8 - 10.8 K/mcL LAB HEMETOLOGY METHOD 09/30/2024 8:36 AM [facility] LAB RBC 4.10 3.80 - 4.80 M/mcL LAB HEMETOLOGY METHOD 09/30/2024 8:36 AM [facility] LAB Hemoglobin 11.6 11.5 - 16.0 g/dL LAB HEMETOLOGY METHOD 09/30/2024 8:36 AM [facility] LAB Hematocrit 37.0 35.0 - 47.0 % LAB HEMETOLOGY METHOD 09/30/2024 8:36 AM [facility] LAB MCV 90.9 79.0 - 98.0 FL LAB HEMETOLOGY METHOD 09/30/2024 8:36 AM [facility] LAB MCH 28.5 27.0 - 32.0 pcg LAB HEMETOLOGY METHOD 09/30/2024 8:36 AM [facility] LAB MCHC 31.4(L) 32.0 - 37.0 g/dL LAB HEMETOLOGY METHOD 09/30/2024 8:36 AM [facility] LAB RDW 13.8 11.0 - 15.0 % LAB HEMETOLOGY METHOD 09/30/2024 8:36 AM [facility] LAB Platelets 237 130 - 400 K/mcL LAB HEMETOLOGY METHOD 09/30/2024 8:36 AM [facility] LAB MPV 10.4 7.0 - 11.0 FL LAB HEMETOLOGY METHOD 09/30/2024 8:36 AM [facility] LAB NRBC 0.0 <1.0 % LAB HEMETOLOGY METHOD 09/30/2024 8:36 AM [facility] LAB NRBC Absolute 0.00 <0.10 K/mcL LAB HEMETOLOGY METHOD 09/30/2024 8:36 AM [facility] LAB Neutrophils Relative 48.4 % LAB HEMETOLOGY METHOD 09/30/2024 8:36 AM [facility] LAB Lymphocytes Relative 36.7 % LAB HEMETOLOGY METHOD 09/30/2024 8:36 AM [facility] LAB Monocytes Relative 11.4 % LAB HEMETOLOGY METHOD 09/30/2024 8:36 AM [facility] LAB Eosinophils Relative 2.7 % LAB HEMETOLOGY METHOD 09/30/2024 8:36 AM [facility] LAB Basophils Relative 0.6 % LAB HEMETOLOGY METHOD 09/30/2024 8:36 AM [facility] LAB Immature Granulocytes Relative 0.2 % LAB HEMETOLOGY METHOD 09/30/2024 8:36 AM [facility] LAB Neutrophils Absolute 3.00 1.50 - 7.00 K/mcL LAB HEMETOLOGY METHOD 09/30/2024 8:36 AM [facility] LAB Lymphocytes Absolute 2.28 1.00 - 5.00 K/mcL LAB HEMETOLOGY METHOD 09/30/2024 8:36 AM [facility] LAB Monocytes Absolute 0.71 0.20 - 1.00 K/mcL LAB HEMETOLOGY METHOD 09/30/2024 8:36 AM [facility] LAB Eosinophils Absolute 0.17 0.00 - 0.50 K/mcL LAB HEMETOLOGY METHOD 09/30/2024 8:36 AM [facility] LAB Basophils Absolute 0.04 0.00 - 0.20 K/mcL LAB HEMETOLOGY METHOD 09/30/2024 8:36 AM [facility] LAB Immature Granulocytes Absolute 0.01 0.00 - 0.03 K/mcL LAB HEMETOLOGY METHOD 09/30/2024 8:36 AM [facility] LAB Blood Venous blood specimen / Unknown 09/30/2024 6:56 AM EST 09/30/2024 7:32 AM EST Camron Sabillon MD LAB BLOOD ORDERABLES Performing Organization Address [facility]/ZIP Co de Phone Number [facility] [address] [place] [address], [place] [phone] * Thyroxine free (09/30/2024 6:56 AM EST) Free T4 1.03 0.70 - 1.80 ng/dL LAB CHEMISTRY METHOD 09/30/2024 8:56 AM EST [facility] Blood Venous blood specimen / Unknown 09/30/2024 6:56 AM EST 09/30/2024 7:32 AM EST Camron Sabillon MD LAB BLOOD ORDERABLES Performing Organization Address [facility] Co de Phone Number [facility] [address] [place] [address], [place] [phone] * Thyroid stimulating hormone (09/30/2024 6:56 AM EST) [facility] TSH 1.18 0.40 - 4.00 mcIU/mL LAB CHEMISTRY METHOD 09/30/2024 8:56 AM EST [facility] Blood Venous blood specimen / Unknown 09/30/2024 6:56 AM EST 09/30/2024 7:32 AM EST Camron Sabillon MD LAB BLOOD ORDERABLES Performing Organization Address [facility] Co de Phone Number [facility] [address] [place] [address], [place] [phone] * Hepatic function panel (09/30/2024 6:56 AM EST) [facility] Total Protein 6.3 6.0 - 8.0 g/dL LAB CHEMISTRY METHOD 09/30/2024 12:36 PM EST [facility] Albumin 3.2 3.2 - 5.0 g/dL LAB CHEMISTRY METHOD 09/30/2024 12:36 PM [facility] Total Bilirubin 0.4 0.0 - 1.4 mg/dL LAB CHEMISTRY METHOD 09/30/2024 12:36 PM [facility] Bilirubin, Direct <0.1 0.0 - 0.3 mg/dL LAB CHEMISTRY METHOD 09/30/2024 12:36 PM [facility] Bilirubin, Indirect LAB CHEMISTRY METHOD 09/30/2024 12:36 PM [facility] Comment:Unable to calculate Indirect Bilirubin. ALT (SGPT) 15 10 - 60 unit/L LAB CHEMISTRY METHOD 09/30/2024 12:36 PM [facility] AST (SGOT) 12 10 - 42 unit/L LAB CHEMISTRY METHOD 09/30/2024 12:36 PM [facility] Alkaline Phosphatase 96 42 - 121 unit/L LAB CHEMISTRY METHOD 09/30/2024 12:36 PM [facility] Blood Venous blood specimen / Unknown 09/30/2024 6:56 AM EST 09/30/2024 7:32 AM EST Camron Sabillon MD LAB BLOOD ORDERABLES [facility] [address] [place] [address], documented in this encounter Visit Diagnoses Diagnosis Hyperlipidemia, unspecified Other long-term (current) drug therapy Other schizophrenia (CMS/HCC) documented in this encounter
--- OUTSIDE RECORDS SUMMARY | 2024-11-10 16:10 | XMS_ITS | Encounter Summary ---
Author Organization [facility] Address [address] [place] [address] Care Team Providers Care Contact Lens Blocker And Cutter Name Role Phone Unavailable Primary Care Provider Unavailabl e Encounter Details Date Type Department Care Team (Late st Contact Info) Description 08/10/2024 Lab Requisition [facility] - Main Lab [address] [facility] [place] [address] Camron Sabillon MD [address] [place] [address] Dr [address] [place], [place] Other schizophrenia (CMS/HCC) Social History Tobacco [...] Diagnosis Comments CBC WITH AUTO DIFFERENTIAL Routine 08/10/2024 5:46 AM EST Other schizophrenia (CMS/HCC) CBC AND DIFFERENTIAL Routine 08/10/2024 5:46 AM EST Other schizophrenia (CMS/HCC) HEPATIC FUNCTION PANEL Routine 08/10/2024 5:46 AM EST Other schizophrenia (CMS/HCC) documented in this encounter Results * (ABNORMAL) CBC auto differential (08/10/2024 5:46 AM EST) WBC 5.7 4.8 - 10.8 K/[facility] LAB HEMETOLOGY METHOD 08/10/2024 7:31 AM EST [facility] LAB RBC 4.00 3.80 - 4.80 M/mcL LAB HEMETOLOGY METHOD 08/10/2024 7:31 AM EST [facility] LAB Hemoglobin 11.4(L) 11.5 - 16.0 g/dL LAB HEMETOLOGY METHOD 08/10/2024 7:31 AM [facility] LAB Hematocrit 36.6 35.0 - 47.0 % LAB HEMETOLOGY METHOD 08/10/2024 7:31 AM [facility] LAB MCV 90.8 79.0 - 98.0 FL LAB HEMETOLOGY METHOD 08/10/2024 7:31 AM [facility] LAB MCH 28.3 27.0 - 32.0 pcg LAB HEMETOLOGY METHOD 08/10/2024 7:31 AM [facility] LAB MCHC 31.1(L) 32.0 - 37.0 g/dL LAB HEMETOLOGY METHOD 08/10/2024 7:31 AM [facility] LAB RDW 14.1 11.0 - 15.0 % LAB HEMETOLOGY METHOD 08/10/2024 7:31 AM [facility] LAB Platelets 215 130 - 400 K/mcL LAB HEMETOLOGY METHOD 08/10/2024 7:31 AM [facility] LAB MPV 10.8 7.0 - 11.0 FL LAB HEMETOLOGY METHOD 08/10/2024 7:31 AM [facility] LAB NRBC 0.0 <1.0 % LAB HEMETOLOGY METHOD 08/10/2024 7:31 AM [facility] LAB NRBC Absolute 0.00 <0.10 K/mcL LAB HEMETOLOGY METHOD 08/10/2024 7:31 AM [facility] LAB Neutrophils Relative 57.7 % LAB HEMETOLOGY METHOD 08/10/2024 7:31 AM [facility] LAB Lymphocytes Relative 26.8 % LAB HEMETOLOGY METHOD 08/10/2024 7:31 AM [facility] Monocytes Relative 14.0 % LAB HEMETOLOGY METHOD 08/10/2024 7:31 AM [facility] LAB Eosinophils Relative 0.7 % LAB HEMETOLOGY METHOD 08/10/2024 7:31 AM EST [facility] LAB Basophils Relative 0.4 % LAB HEMETOLOGY METHOD 08/10/2024 7:31 AM [facility] LAB Immature Granulocytes Relative 0.4 % LAB HEMETOLOGY METHOD 08/10/2024 7:31 AM [facility] LAB Neutrophils Absolute 3.29 1.50 - 7.00 K/mcL LAB HEMETOLOGY METHOD 08/10/2024 7:31 AM [facility] LAB Lymphocytes Absolute 1.53 1.00 - 5.00 K/mcL LAB HEMETOLOGY METHOD 08/10/2024 7:31 AM [facility] LAB Monocytes Absolute 0.80 0.20 - 1.00 K/mcL LAB HEMETOLOGY METHOD 08/10/2024 7:31 AM [facility] LAB Eosinophils Absolute 0.04 0.00 - 0.50 K/mcL LAB HEMETOLOGY METHOD 08/10/2024 7:31 AM [facility] LAB Basophils Absolute 0.02 0.00 - 0.20 K/mcL LAB HEMETOLOGY METHOD 08/10/2024 7:31 AM [facility] LAB Immature Granulocytes Absolute 0.02 0.00 - 0.03 K/mcL LAB HEMETOLOGY METHOD 08/10/2024 7:31 AM [facility] LAB Blood Venous blood specimen / Unknown 08/10/2024 5:46 AM EST 08/10/2024 7:05 AM EST Camron Sabillon MD LAB BLOOD ORDERABLES [facility] LAB [address] [place] [address], * (ABNORMAL) Hepatic function panel (08/10/2024 5:46 AM EST) Total Protein 6.2 6.0 - 8.0 g/dL LAB CHEMISTRY METHOD 08/10/2024 8:06 AM [facility] Albumin 3.1(L) 3.2 - 5.0 g/dL LAB CHEMISTRY METHOD 08/10/2024 8:06 AM [facility] Total Bilirubin 0.4 0.0 - 1.4 mg/dL LAB CHEMISTRY METHOD 08/10/2024 8:06 AM [facility] Bilirubin, Direct 0.1 0.0 - 0.3 mg/dL LAB CHEMISTRY METHOD 08/10/2024 8:06 AM [facility] LAB Bilirubin, Indirect 0.3 0.0 - 1.1 mg/dL LAB CHEMISTRY METHOD 08/10/2024 8:06 AM [facility] LAB ALT (SGPT) 17 10 - 60 unit/L LAB CHEMISTRY METHOD 08/10/2024 8:06 AM [facility] LAB AST (SGOT) 15 10 - 42 unit/L LAB CHEMISTRY METHOD 08/10/2024 8:06 AM [facility] LAB Alkaline Phosphatase 107 42 - 121 unit/L LAB CHEMISTRY METHOD 08/10/2024 8:06 AM [facility] Blood Venous blood specimen / Unknown 08/10/2024 5:46 AM EST 08/10/2024 7:05 AM EST Camron Sabillon MD LAB BLOOD ORDERABLES [facility] LAB [address] [place] [address], documented in this encounter Visit Diagnoses Diagnosis Other schizophrenia (CMS/HCC) documented in this encounter
--- OUTSIDE RECORDS SUMMARY | 2024-11-10 16:10 | XMS_ITS | Clinical Summary ---
Author Organization [address] [facility] Address [address] [place] [address] Phone Care Team Providers Care Metallurgy Teacher Name Role Phone Unavailable Primary Care Provider Unavailabl e Encounters Date Type Department Care Team Description 10/27/2024 Lab Requisition [facility] Lab [address] [place] [phone] Camron Sabillon MD Type 2 diabetes mellitus without complications (CMS/HCC); Other schizophrenia ([facility]/HCC) 09/30/2024 Lab Requisition [facility] Lab [address] [place] [phone] Camron Sabillon MD Hyperlipidemia, unspecified; Other bed bug exterminator (current) drug therapy; Other schizophrenia (CMS/HCC) 09/01/2024 Lab Requisition [facility] Lab [address] [place] [phone] Camron Sabillon MD Other schizophrenia ([facility]/HCC) 08/10/2024 Lab Requisition [facility] Lab [address] [place] [phone] Camron Sabillon MD Other schizophrenia ([facility]/HCC) from Last 3 Months Social History Tobacco Use Types Packs/Day Years Used Date Smoking Tobacco: Never Assessed Sex and Gender Information Value Date Recorded Sex Assigned at Not on file Gender Identity Not on file Sexual Orientation Not on file Plan of Treatment Health Maintenance Due Date Last Done Comments Breast Cancer Screening 1969 Pneumococcal Vaccine: Pediat rics (0 to 5 Years) and At-Risk Patients (6 to 64 Years) (1 of 2 - PCV) 1975 Diabetes: Annual Foot Exam 1979 Diabetes: Annual Retina Eye Exam 1979 DTaP,Tdap,and Td Vaccines (1 - Tdap) 1988 Hepatitis B Vaccines (1 of 3 - 19+ 3-dose series) 1988 Cervical Cancer Screening: P ap Smear 1990 Zoster Vaccines (1 of 2) 2019 Cholesterol Screening (Lipid Panel) 09/07/2022 Colorectal Cancer Screening: Colonoscopy 09/07/2022 Depression Screening 09/07/2022 HIV Screening 09/07/2022 Hepatitis C Screening 09/07/2022 Medicare Annual Wellness Visit 09/07/2022 Social Influencers of Health Screening 09/07/2022 COVID-19 Vaccine ( - 2023-2 5 season) 2024 Influenza Vaccine (#1) 2024 Diabetes: Annual Urine Albumin-Creatinine Ratio (uACR) 11/01/2024 Diabetes: Blood Sugar Contro l Test (HGBA1C) 04/26/2025 10/27/2024 Diabetes: Annual GFR (Glomer ular Filtration Rate) 10/27/2025 10/27/2024 HIB Vaccines Aged Out No longer eligi ble based on patient's age to complete this topic HPV Vaccines Aged Out No longer eligi ble based on patient's age to complete this topic Hepatitis A Vaccines Aged Out No long er eligible based on patient's age to complete this topic IPV Vaccines Aged Out No longer eligi ble based on patient's age to complete this topic MMR Vaccines Aged Out No longer eligi ble based on patient's age to complete this topic Meningococcal ACWY Vaccine Aged Out N o longer eligible based on patient's age to complete this topic RSV Immunization Patients Un elvin 20 months Aged Out No longer eligible b ased on patient's age to complete this topic Varicella Vaccines Aged Out No longer eligible based on patient's age to complete this topic Procedures Procedure Name Priority Date/Time Associated Diagnosis Comments CBC WITH AUTO DIFFERENTIAL Routine 10/27/2024 6:37 AM EST Other schizophrenia (CMS/HCC) Type 2 diabetes mellitus without complications (CMS/HCC) HEMOGLOBIN A1C Routine 10/27/2024 6:37 AM EST Other schizophrenia (CMS/HCC) Type 2 diabetes mellitus without complications (CMS/HCC) COMPREHENSIVE METABOLIC PANEL Routine 10/27/2024 6:37 AM EST Other schizophrenia (CMS/HCC) Type 2 diabetes mellitus without complications (CMS/HCC) CBC AND DIFFERENTIAL Routine 10/27/2024 6:37 AM EST Other schizophrenia (CMS/HCC) Type 2 diabetes mellitus without complications (CMS/HCC) CBC WITH AUTO DIFFERENTIAL Routine 09/30/2024 6:56 AM EST Hyperlipidemia, unspecified Other nursing home (current) drug therapy Other schizophrenia (CMS/HCC) THYROXINE FREE Routine 09/30/2024 6:56 AM EST Hyperlipidemia, unspecified Other bed bug exterminator (current) drug therapy Other schizophrenia (CMS/HCC) THYROID STIMULATING HORMONE Routine 09/30/2024 6:56 AM EST Hyperlipidemia, unspecified Other nursing home (current) drug therapy Other schizophrenia (CMS/HCC) HEPATIC FUNCTION PANEL Routine 09/30/2024 6:56 AM EST Hyperlipidemia, unspecified Other nursing home (current) drug therapy Other schizophrenia (CMS/HCC) CBC AND DIFFERENTIAL Routine 09/30/2024 6:56 AM EST Hyperlipidemia, unspecified Other bed bug exterminator (current) drug therapy Other schizophrenia (CMS/HCC) CBC WITH AUTO DIFFERENTIAL Routine 09/01/2024 6:48 AM EST Other schizophrenia (CMS/HCC) CBC AND DIFFERENTIAL Routine 09/01/2024 6:48 AM EST Other schizophrenia (CMS/HCC) CBC WITH AUTO DIFFERENTIAL Routine 08/10/2024 5:46 AM EST Other schizophrenia (CMS/HCC) HEPATIC FUNCTION PANEL Routine 08/10/2024 5:46 AM EST Other schizophrenia (CMS/HCC) CBC AND DIFFERENTIAL Routine 08/10/2024 5:46 AM EST Other schizophrenia (CMS/HCC) from Last 3 Months Results * (ABNORMAL) CBC auto differential (10/27/2024 6:37 AM EST) Only the most recent of4 resultswithin the time period is included. [facility] WBC 7.2 4.8 - 10.8 K/mcL LAB HEMETOLOGY METHOD 10/27/2024 7:36 AM [facility] LAB RBC 4.00 3.80 - 4.80 M/mcL LAB HEMETOLOGY METHOD 10/27/2024 7:36 AM [facility] LAB Hemoglobin 11.6 11.5 - 16.0 g/dL LAB HEMETOLOGY METHOD 10/27/2024 7:36 AM [facility] LAB Hematocrit 37.3 35.0 - 47.0 % LAB HEMETOLOGY METHOD 10/27/2024 7:36 AM [facility] LAB MCV 92.3 79.0 - 98.0 FL LAB HEMETOLOGY METHOD 10/27/2024 7:36 AM [facility] LAB MCH 28.7 27.0 - 32.0 pcg LAB HEMETOLOGY METHOD 10/27/2024 7:36 AM [facility] LAB MCHC 31.1(L) 32.0 - 37.0 g/dL LAB HEMETOLOGY METHOD 10/27/2024 7:36 AM [facility] LAB RDW 13.8 11.0 - 15.0 % LAB HEMETOLOGY METHOD 10/27/2024 7:36 AM [facility] LAB Platelets 222 130 - 400 K/mcL LAB HEMETOLOGY METHOD 10/27/2024 7:36 AM [facility] LAB MPV 10.6 7.0 - 11.0 FL LAB HEMETOLOGY METHOD 10/27/2024 7:36 AM [facility] LAB NRBC 0.0 <1.0 % LAB HEMETOLOGY METHOD 10/27/2024 7:36 AM [facility] LAB NRBC Absolute 0.00 <0.10 K/mcL LAB HEMETOLOGY METHOD 10/27/2024 7:36 AM [facility] LAB Neutrophils Relative 51.1 % LAB HEMETOLOGY METHOD 10/27/2024 7:36 AM [facility] LAB Lymphocytes Relative 32.4 % LAB HEMETOLOGY METHOD 10/27/2024 7:36 AM [facility] LAB Monocytes Relative 12.6 % LAB HEMETOLOGY METHOD 10/27/2024 7:36 AM [facility] LAB Eosinophils Relative 2.9 % LAB HEMETOLOGY METHOD 10/27/2024 7:36 AM [facility] LAB Basophils Relative 0.7 % LAB HEMETOLOGY METHOD 10/27/2024 7:36 AM [facility] LAB Immature Granulocytes Relative 0.3 % LAB HEMETOLOGY METHOD 10/27/2024 7:36 AM [facility] LAB Neutrophils Absolute 3.65 1.50 - 7.00 K/mcL LAB HEMETOLOGY METHOD 10/27/2024 7:36 AM [facility] LAB Lymphocytes Absolute 2.32 1.00 - 5.00 K/mcL LAB HEMETOLOGY METHOD 10/27/2024 7:36 AM [facility] LAB Monocytes Absolute 0.90 0.20 - 1.00 K/mcL LAB HEMETOLOGY METHOD 10/27/2024 7:36 AM [facility] LAB Eosinophils Absolute 0.21 0.00 - 0.50 K/mcL LAB HEMETOLOGY METHOD 10/27/2024 7:36 AM [facility] LAB Basophils Absolute 0.05 0.00 - 0.20 K/mcL LAB HEMETOLOGY METHOD 10/27/2024 7:36 AM [facility] LAB Immature Granulocytes Absolute 0.02 0.00 - 0.03 K/mcL LAB HEMETOLOGY METHOD 10/27/2024 7:36 AM [facility] LAB Blood Venous blood specimen / Unknown 10/27/2024 6:37 AM EST 10/27/2024 7:14 AM EST Camron Sabillon MD LAB BLOOD ORDERABLES Performing Organization Address [facility]/ZIP Co de Phone Number [facility] [address] [place] [address], * Hemoglobin A1c (10/27/2024 6:37 AM EST) Pathologist [facility] Hemoglobin A1C 6.2 <6.5 % LAB CHEMISTRY METHOD 10/27/2024 11:57 AM EST [facility] Mean Bld Glu Estim. 131 mg/dL LAB CHEMISTRY METHOD 10/27/2024 11:57 AM [facility] Blood Venous blood specimen / Unknown 10/27/2024 6:37 AM EST 10/27/2024 7:14 AM EST Camron Sabillon MD LAB BLOOD ORDERABLES Performing Organization Address [facility]/ZIP Co de Phone Number [facility] [address] [place] [address], [place] [phone] * (ABNORMAL) Comprehensive metabolic panel (10/27/2024 6:37 AM EST) [facility] Sodium 140 133 - 145 mmol/L LAB CHEMISTRY METHOD 10/27/2024 9:50 AM [facility] Potassium 3.8 3.5 - 5.5 mmol/L LAB CHEMISTRY METHOD 10/27/2024 9:50 AM [facility] Chloride 105 96 - 110 mmol/L LAB CHEMISTRY METHOD 10/27/2024 9:50 AM [facility] CO2 29 21 - 32 mmol/L LAB CHEMISTRY METHOD 10/27/2024 9:50 AM [facility] Anion Gap 6 3 - 11 LAB CHEMISTRY METHOD 10/27/2024 9:50 AM [facility] Glucose 105(H) 70 - 100 mg/dL LAB CHEMISTRY METHOD 10/27/2024 9:50 AM [facility] BUN 14 5 - 25 mg/dL LAB CHEMISTRY METHOD 10/27/2024 9:50 AM [facility] Creatinine 0.92 0.50 - 1.10 mg/dL LAB CHEMISTRY METHOD 10/27/2024 9:50 AM [facility] LAB eGFR 74 >=60 mL/min/1. 73m2 LAB CHEMISTRY METHOD 10/27/2024 9:50 AM [facility] LAB Comment:Calculation based on the??Chronic Kidney Disease Epidemiology Collaboration (CKD-EPI) equation refit??without adjustment for race. BUN/Creatinine Ratio 15.2 LAB CHEMISTRY METHOD 10/27/2024 9:50 AM [facility] Calcium 8.8 8.5 - 10.5 mg/dL LAB CHEMISTRY METHOD 10/27/2024 9:50 AM [facility] AST (SGOT) 14 10 - 42 unit/L LAB CHEMISTRY METHOD 10/27/2024 9:50 AM [facility] LAB ALT (SGPT) 18 10 - 60 unit/L LAB CHEMISTRY METHOD 10/27/2024 9:50 AM [facility] Alkaline Phosphatase 96 42 - 121 unit/L LAB CHEMISTRY METHOD 10/27/2024 9:50 AM [facility] Total Protein 6.4 6.0 - 8.0 g/dL LAB CHEMISTRY METHOD 10/27/2024 9:50 AM [facility] Albumin 3.1(L) 3.2 - 5.0 g/dL LAB CHEMISTRY METHOD 10/27/2024 9:50 AM [facility] Total Bilirubin 0.3 0.0 - 1.4 mg/dL LAB CHEMISTRY METHOD 10/27/2024 9:50 AM [facility] Blood Venous blood specimen / Unknown 10/27/2024 6:37 AM EST 10/27/2024 7:14 AM EST Camron Sabillon MD LAB BLOOD ORDERABLES [facility] [address] [place] [address], * Thyroid stimulating hormone (09/30/2024 6:56 AM EST) TSH 1.18 0.40 - 4.00 mcIU/mL LAB CHEMISTRY METHOD 09/30/2024 8:56 AM EST [facility] Blood Venous blood specimen / Unknown 09/30/2024 6:56 AM EST 09/30/2024 7:32 AM EST Camron Sabillon MD LAB BLOOD ORDERABLES Performing Organization Address [facility] Co de Phone Number [facility] [address] [place] [address], [place] [phone] * Thyroxine free (09/30/2024 6:56 AM EST) Pathologist [facility] Free T4 1.03 0.70 - 1.80 ng/dL LAB CHEMISTRY METHOD 09/30/2024 8:56 AM EST [facility] Blood Venous blood specimen / Unknown 09/30/2024 6:56 AM EST 09/30/2024 7:32 AM EST Camron Sabillon MD LAB BLOOD ORDERABLES Performing Organization Address [facility] Co de Phone Number [facility] [address] [place] [address], * Hepatic function panel (09/30/2024 6:56 AM EST) Only the most recent of2 resultswithin the time period is included. Total Protein 6.3 6.0 - 8.0 g/dL LAB CHEMISTRY METHOD 09/30/2024 12:36 PM EST [facility] Albumin 3.2 3.2 - 5.0 g/dL LAB CHEMISTRY METHOD 09/30/2024 12:36 PM EST [facility] Total Bilirubin 0.4 0.0 - 1.4 mg/dL LAB CHEMISTRY METHOD 09/30/2024 12:36 PM EST [facility] Bilirubin, Direct <0.1 0.0 - 0.3 mg/dL LAB CHEMISTRY METHOD 09/30/2024 12:36 PM [facility] Bilirubin, Indirect LAB CHEMISTRY METHOD 09/30/2024 12:36 PM [facility] Comment:Unable to calculate Indirect Bilirubin. ALT (SGPT) 15 10 - 60 unit/L LAB CHEMISTRY METHOD 09/30/2024 12:36 PM [facility] AST (SGOT) 12 10 - 42 unit/L LAB CHEMISTRY METHOD 09/30/2024 12:36 PM [facility] Alkaline Phosphatase 96 42 - 121 unit/L LAB CHEMISTRY METHOD 09/30/2024 12:36 PM [facility] Blood Venous blood specimen / Unknown 09/30/2024 6:56 AM EST 09/30/2024 7:32 AM EST Camron Sabillon MD LAB BLOOD ORDERABLES [facility] [address] [place] [address], from Last 3 Months
--- OUTSIDE RECORDS SUMMARY | 2024-11-10 16:10 | XMS_ITS | Encounter Summary ---
Author Organization [employer] Address [address] [place] [address] Care Team Providers Care Patient Services Technician Name Role Phone Unavailable Primary Care Provider Unavailabl e Encounter Details Date Type Department Care Team (Late st Contact Info) Description 10/27/2024 Lab Requisition [facility] - Main Lab 299 [facility] [place] [address] Camron Sabillon MD [address] [place] [address] [address] [place], [place] Type 2 diabetes mellitus without complications (CMS/HCC); Other schizophrenia (CMS/HCC) Social History Tobacco Use [...] Type 2 diabetes mellitus without complications (CMS/HCC) documented in this encounter Results * (ABNORMAL) CBC auto differential (10/27/2024 6:37 AM EST) WBC 7.2 4.8 - 10.8 K/[facility] 10/27/2024 7:36 AM [facility] LAB RBC 4.00 3.80 - 4.80 M/mcL LAB HEMETOLOGY METHOD 10/27/2024 7:36 AM [facility] LAB Hemoglobin 11.6 11.5 - 16.0 g/dL LAB HEMETOLOGY METHOD 10/27/2024 7:36 AM [facility] LAB Hematocrit 37.3 35.0 - 47.0 % LAB HEMETOLOGY METHOD 10/27/2024 7:36 AM [facility] LAB MCV 92.3 79.0 - 98.0 FL LAB HEMETOLOGY METHOD 10/27/2024 7:36 AM [facility] LAB MCH 28.7 27.0 - 32.0 pcg LAB HEMETOLOGY METHOD 10/27/2024 7:36 AM [facility] LAB MCHC 31.1(L) 32.0 - 37.0 g/dL LAB HEMETOLOGY METHOD 10/27/2024 7:36 AM [facility] LAB RDW 13.8 11.0 - 15.0 % LAB HEMETOLOGY METHOD 10/27/2024 7:36 AM [facility] LAB Platelets 222 130 - 400 K/mcL LAB HEMETOLOGY METHOD 10/27/2024 7:36 AM [facility] LAB MPV 10.6 7.0 - 11.0 FL LAB HEMETOLOGY METHOD 10/27/2024 7:36 AM [facility] LAB NRBC 0.0 <1.0 % LAB HEMETOLOGY METHOD 10/27/2024 7:36 AM [facility] LAB NRBC Absolute 0.00 <0.10 K/mcL LAB HEMETOLOGY METHOD 10/27/2024 7:36 AM [facility] LAB Neutrophils Relative 51.1 % LAB HEMETOLOGY METHOD 10/27/2024 7:36 AM [facility] LAB Lymphocytes Relative 32.4 % LAB HEMETOLOGY METHOD 10/27/2024 7:36 AM [facility] LAB Monocytes Relative 12.6 % LAB HEMETOLOGY METHOD 10/27/2024 7:36 AM [facility] LAB Eosinophils Relative 2.9 % LAB HEMETOLOGY METHOD 10/27/2024 7:36 AM [facility] LAB Basophils Relative 0.7 % LAB HEMETOLOGY METHOD 10/27/2024 7:36 AM [facility] LAB Immature Granulocytes Relative 0.3 % LAB HEMETOLOGY METHOD 10/27/2024 7:36 AM [facility] LAB Neutrophils Absolute 3.65 1.50 - 7.00 K/mcL LAB HEMETOLOGY METHOD 10/27/2024 7:36 AM [facility] LAB Lymphocytes Absolute 2.32 1.00 - 5.00 K/mcL LAB HEMETOLOGY METHOD 10/27/2024 7:36 AM [facility] LAB Monocytes Absolute 0.90 0.20 - 1.00 K/mcL LAB HEMETOLOGY METHOD 10/27/2024 7:36 AM [facility] LAB Eosinophils Absolute 0.21 0.00 - 0.50 K/mcL LAB HEMETOLOGY METHOD 10/27/2024 7:36 AM [facility] LAB Basophils Absolute 0.05 0.00 - 0.20 K/mcL LAB HEMETOLOGY METHOD 10/27/2024 7:36 AM [facility] LAB Immature Granulocytes Absolute 0.02 0.00 - 0.03 K/mcL LAB HEMETOLOGY METHOD 10/27/2024 7:36 AM [facility] LAB Blood Venous blood specimen / Unknown 10/27/2024 6:37 AM EST 10/27/2024 7:14 AM EST Camron Sabillon MD LAB BLOOD ORDERABLES [facility] LAB [address] [place] [address], * Hemoglobin A1c (10/27/2024 6:37 AM EST) Hemoglobin A1C 6.2 <6.5 % LAB CHEMISTRY METHOD 10/27/2024 11:57 AM EST [facility] LAB Mean Bld Glu Estim. 131 mg/dL LAB CHEMISTRY METHOD 10/27/2024 11:57 AM [facility] LAB Blood Venous blood specimen / Unknown 10/27/2024 6:37 AM EST 10/27/2024 7:14 AM EST Camron Sabillon MD LAB BLOOD ORDERABLES Performing Organization Address [facility]/ZIP Co de Phone Number [facility] LAB [address] [place] [address], * (ABNORMAL) Comprehensive metabolic panel (10/27/2024 6:37 AM EST) Pathologist [facility] Sodium 140 133 - 145 mmol/L LAB CHEMISTRY METHOD 10/27/2024 9:50 AM [facility] LAB Potassium 3.8 3.5 - 5.5 mmol/L LAB CHEMISTRY METHOD 10/27/2024 9:50 AM [facility] LAB Chloride 105 96 - 110 mmol/L LAB CHEMISTRY METHOD 10/27/2024 9:50 AM [facility] LAB CO2 29 21 - 32 mmol/L LAB CHEMISTRY METHOD 10/27/2024 9:50 AM [facility] LAB Anion Gap 6 3 - 11 LAB CHEMISTRY METHOD 10/27/2024 9:50 AM [facility] LAB Glucose 105(H) 70 - 100 mg/dL LAB CHEMISTRY METHOD 10/27/2024 9:50 AM [facility] LAB BUN 14 5 - 25 mg/dL LAB CHEMISTRY METHOD 10/27/2024 9:50 AM [facility] LAB Creatinine 0.92 0.50 - 1.10 mg/dL LAB CHEMISTRY METHOD 10/27/2024 9:50 AM [facility] LAB eGFR 74 >=60 mL/min/1. 73m2 LAB CHEMISTRY METHOD 10/27/2024 9:50 AM [facility] LAB Comment:Calculation based on the??Chronic Kidney Disease Epidemiology Collaboration (CKD-EPI) equation refit??without adjustment for race. BUN/Creatinine Ratio 15.2 LAB CHEMISTRY METHOD 10/27/2024 9:50 AM [facility] LAB Calcium 8.8 8.5 - 10.5 mg/dL LAB CHEMISTRY METHOD 10/27/2024 9:50 AM [facility] LAB AST (SGOT) 14 10 - 42 unit/L LAB CHEMISTRY METHOD 10/27/2024 9:50 AM [facility] LAB ALT (SGPT) 18 10 - 60 unit/L LAB CHEMISTRY METHOD 10/27/2024 9:50 AM [facility] LAB Alkaline Phosphatase 96 42 - 121 unit/L LAB CHEMISTRY METHOD 10/27/2024 9:50 AM [facility] LAB Total Protein 6.4 6.0 - 8.0 g/dL LAB CHEMISTRY METHOD 10/27/2024 9:50 AM [facility] LAB Albumin 3.1(L) 3.2 - 5.0 g/dL LAB CHEMISTRY METHOD 10/27/2024 9:50 AM [facility] LAB Total Bilirubin 0.3 0.0 - 1.4 mg/dL LAB CHEMISTRY METHOD 10/27/2024 9:50 AM [facility] LAB Blood Venous blood specimen / Unknown 10/27/2024 6:37 AM EST 10/27/2024 7:14 AM EST Camron Sabillon MD LAB BLOOD ORDERABLES [facility] LAB [address] [place] [address], documented in this encounter Visit Diagnoses Diagnosis Type 2 diabetes mellitus without complications (CMS/HCC) Other schizophrenia (CMS/HCC) documented in this encounter
[2024-11-10 16:39] LABS: Estimated Average Glucose 126 mg/dL; Hemoglobin A1C 135.3494 umol/L; Total Hemoglobin (HGBA1C) 3207.0907 umol/L
[2024-11-10 16:53] LABS: Influenza A PCR NEGATIVE (Negative); Influenza B PCR NEGATIVE (Negative); Resp Syncy Virus RNA Qual PCR POSITIVE (Negative); SARS COV2 PCR INHOUSE NEGATIVE (Negative)
[2024-11-10 17:04] LABS: Iron 52 mcg/dL (30-160); Percent Iron Saturation 18 % (15-50); Total Iron Binding Capacity 286 mcg/dL (228-428); Unsaturated Iron Binding 234 ug/dL
[2024-11-10 17:12] LABS: Ferritin 45 ng/mL (10-250)
== END 2024-11-10 14:23 | disposition home or self-care (01) ==
LOC: HO.LAB 14:22
PROVIDERS: PCP Hospitalist; Visit Provider Internal Medicine
DX: D64.9 Anemia, unspecified (principal); J06.9 Acute upper respiratory infection, unspecified; R19.7 Diarrhea, unspecified; Z13.1 Encounter for screening for diabetes mellitus; R11.0 Nausea
CPT/HCPCS: 0241U; 82728; 83036; 83540; 85027; 99212

== ENCOUNTER 2024-11-25 14:16 | Outpatient (REF) | payer MEDICARE, MEDICAID, SELFPAY ==
--- OUTSIDE RECORDS SUMMARY | 2024-11-25 15:32 | XMS_ITS | Encounter Summary ---
Author Organization [employer] Address [address] [place] [address] Care Team Providers Care Metal Drill Press Operator Name Role Phone Unavailable Primary Care Provider Unavailabl e Encounter Details Date Type Department Care Team (Late st Contact Info) Description 09/30/2024 Lab Requisition [facility] - Main Lab 299 [facility] [place] [address] Camron [place]illon MD [address] [place] [address] Dr [address] [place], [place] Hyperlipidemia, unspecified; Other detention (current) drug therapy; Other schizophrenia (CMS/HCC) Social History Tobacco Use Types Packs/Day Years Used Date Smoking Tobacco: Never Assessed Comments Unknown Sex and Gender Information Value Date Recorded Sex Assigned at Not on file Legal Sex Female 10:06 PM EST Gender Identity Not on file Sexual Orientation Not on file documented as of this encounter Plan of Treatment Not on file documented as of this encounter Procedures Procedure Name Priority Date/Time Associated Diagnosis Comments CBC WITH AUTO DIFFERENTIAL Routine 09/30/2024 6:56 AM EST Hyperlipidemia, unspecified Other termite control service representative (current) drug therapy Other schizophrenia (CMS/HCC) CBC AND DIFFERENTIAL Routine 09/30/2024 6:56 AM EST Hyperlipidemia, unspecified Other detention (current) drug therapy Other schizophrenia (CMS/HCC) THYROID STIMULATING HORMONE Routine 09/30/2024 6:56 AM EST Hyperlipidemia, unspecified Other termite control service representative (current) drug therapy Other schizophrenia (CMS/HCC) THYROXINE FREE Routine 09/30/2024 6:56 AM EST Hyperlipidemia, unspecified Other detention (current) drug therapy Other schizophrenia (CMS/HCC) HEPATIC FUNCTION PANEL Routine 09/30/2024 6:56 AM EST Hyperlipidemia, unspecified Other termite control service representative (current) drug therapy Other schizophrenia (CMS/HCC) documented in this encounter Results * (ABNORMAL) CBC auto differential (09/30/2024 6:56 AM EST) [facility] WBC 6.2 4.8 - 10.8 K/mcL LAB HEMETOLOGY METHOD 09/30/2024 8:36 AM [facility] LAB RBC 4.10 3.80 - 4.80 M/mcL LAB HEMETOLOGY METHOD 09/30/2024 8:36 AM [facility] LAB Hemoglobin 11.6 11.5 - 16.0 g/dL LAB HEMETOLOGY METHOD 09/30/2024 8:36 AM [facility] LAB Hematocrit 37.0 35.0 - 47.0 % LAB HEMETOLOGY METHOD 09/30/2024 8:36 AM [facility] LAB MCV 90.9 79.0 - 98.0 FL LAB HEMETOLOGY METHOD 09/30/2024 8:36 AM [facility] LAB MCH 28.5 27.0 - 32.0 pcg LAB HEMETOLOGY METHOD 09/30/2024 8:36 AM [facility] LAB MCHC 31.4(L) 32.0 - 37.0 g/dL LAB HEMETOLOGY METHOD 09/30/2024 8:36 AM [facility] LAB RDW 13.8 11.0 - 15.0 % LAB HEMETOLOGY METHOD 09/30/2024 8:36 AM [facility] LAB Platelets 237 130 - 400 K/mcL LAB HEMETOLOGY METHOD 09/30/2024 8:36 AM [facility] LAB MPV 10.4 7.0 - 11.0 FL LAB HEMETOLOGY METHOD 09/30/2024 8:36 AM [facility] LAB NRBC 0.0 <1.0 % LAB HEMETOLOGY METHOD 09/30/2024 8:36 AM [facility] LAB NRBC Absolute 0.00 <0.10 K/mcL LAB HEMETOLOGY METHOD 09/30/2024 8:36 AM [facility] LAB Neutrophils Relative 48.4 % LAB HEMETOLOGY METHOD 09/30/2024 8:36 AM [facility] LAB Lymphocytes Relative 36.7 % LAB HEMETOLOGY METHOD 09/30/2024 8:36 AM [facility] LAB Monocytes Relative 11.4 % LAB HEMETOLOGY METHOD 09/30/2024 8:36 AM [facility] LAB Eosinophils Relative 2.7 % LAB HEMETOLOGY METHOD 09/30/2024 8:36 AM [facility] LAB Basophils Relative 0.6 % LAB HEMETOLOGY METHOD 09/30/2024 8:36 AM [facility] LAB Immature Granulocytes Relative 0.2 % LAB HEMETOLOGY METHOD 09/30/2024 8:36 AM [facility] LAB Neutrophils Absolute 3.00 1.50 - 7.00 K/mcL LAB HEMETOLOGY METHOD 09/30/2024 8:36 AM [facility] LAB Lymphocytes Absolute 2.28 1.00 - 5.00 K/mcL LAB HEMETOLOGY METHOD 09/30/2024 8:36 AM [facility] LAB Monocytes Absolute 0.71 0.20 - 1.00 K/mcL LAB HEMETOLOGY METHOD 09/30/2024 8:36 AM [facility] LAB Eosinophils Absolute 0.17 0.00 - 0.50 K/mcL LAB HEMETOLOGY METHOD 09/30/2024 8:36 AM [facility] LAB Basophils Absolute 0.04 0.00 - 0.20 K/mcL LAB HEMETOLOGY METHOD 09/30/2024 8:36 AM [facility] LAB Immature Granulocytes Absolute 0.01 0.00 - 0.03 K/mcL LAB HEMETOLOGY METHOD 09/30/2024 8:36 AM EST [facility] LAB Blood Venous blood specimen / Unknown 09/30/2024 6:56 AM EST 09/30/2024 7:32 AM EST us Camron [place]illon MD LAB BLOOD ORDERABLES Final Resul t Performing Organization Address [facility] Co de Phone Number [facility] LAB [address] [place] [address], [place] [phone] * Thyroxine free (09/30/2024 6:56 AM EST) Free T4 1.03 0.70 - 1.80 ng/dL LAB CHEMISTRY METHOD 09/30/2024 8:56 AM EST [facility] LAB Blood Venous blood specimen / Unknown 09/30/2024 6:56 AM EST 09/30/2024 7:32 AM EST us Camron Sabillon MD LAB BLOOD ORDERABLES Final Resul t Performing Organization Address [facility] de Phone Number [facility] LAB [address] [place] [address], [place] [phone] * Thyroid stimulating hormone (09/30/2024 6:56 AM EST) TSH 1.18 0.40 - 4.00 mcIU/mL LAB CHEMISTRY METHOD 09/30/2024 8:56 AM EST [facility] LAB Blood Venous blood specimen / Unknown 09/30/2024 6:56 AM EST 09/30/2024 7:32 AM EST us Camron Sabillon MD LAB BLOOD ORDERABLES Final Resul t Performing Organization Address [facility] Co de Phone Number [facility] LAB [address] [place] [address], [place] [phone] * Hepatic function panel (09/30/2024 6:56 AM EST) Total Protein 6.3 6.0 - 8.0 g/dL LAB CHEMISTRY METHOD 09/30/2024 12:36 PM [facility] LAB Albumin 3.2 3.2 - 5.0 g/dL LAB CHEMISTRY METHOD 09/30/2024 12:36 PM [facility] LAB Total Bilirubin 0.4 0.0 - 1.4 mg/dL LAB CHEMISTRY METHOD 09/30/2024 12:36 PM [facility] LAB Bilirubin, Direct <0.1 0.0 - 0.3 mg/dL LAB CHEMISTRY METHOD 09/30/2024 12:36 PM [facility] LAB Bilirubin, Indirect LAB CHEMISTRY METHOD 09/30/2024 12:36 PM [facility] LAB Comment:Unable to calculate Indirect Bilirubin. ALT (SGPT) 15 10 - 60 unit/L LAB CHEMISTRY METHOD 09/30/2024 12:36 PM [facility] LAB AST (SGOT) 12 10 - 42 unit/L LAB CHEMISTRY METHOD 09/30/2024 12:36 PM [facility] LAB Alkaline Phosphatase 96 42 - 121 unit/L LAB CHEMISTRY METHOD 09/30/2024 12:36 PM [facility] LAB Blood Venous blood specimen / Unknown 09/30/2024 6:56 AM EST 09/30/2024 7:32 AM EST us Camron Sabillon MD LAB BLOOD ORDERABLES Final Resul t [facility] LAB [address] [place] [address], documented in this encounter Visit Diagnoses Diagnosis Hyperlipidemia, unspecified Other detention (current) drug therapy Other schizophrenia (CMS/HCC) documented in this encounter
--- OUTSIDE RECORDS SUMMARY | 2024-11-25 15:32 | XMS_ITS | Encounter Summary ---
Author Organization [facility] Address [address] [place] [address] Care Team Providers Care Brush Maker Name Role Phone Unavailable Primary Care Provider Unavailabl e Encounter Details Date Type Department Care Team (Late st Contact Info) Description 11/24/2024 Lab Requisition [facility] - Main Lab 299 [facility] [place] [place] [address] Camron Sabillon MD [address] [place] [address] [address] [place], [place] Other schizophrenia (CMS/HCC) Social History Tobacco [...] Diagnosis Comments CBC WITH AUTO DIFFERENTIAL Routine 11/24/2024 6:47 AM EST Other schizophrenia (CMS/HCC) CBC AND DIFFERENTIAL Routine 11/24/2024 6:47 AM EST Other schizophrenia (CMS/HCC) documented in this encounter Results * (ABNORMAL) CBC auto differential (11/24/2024 6:47 AM EST) WBC 6.8 4.8 - 10.8 K/[facility] LAB HEMETOLOGY METHOD 11/24/2024 7:44 AM EST [facility] LAB RBC 3.90 3.80 - 4.80 M/[facility] LAB HEMETOLOGY METHOD 11/24/2024 7:44 AM EST [facility] LAB Hemoglobin 11.3(L) 11.5 - 16.0 g/dL LAB HEMETOLOGY METHOD 11/24/2024 7:44 AM [facility] LAB Hematocrit 35.9 35.0 - 47.0 % LAB HEMETOLOGY METHOD 11/24/2024 7:44 AM [facility] LAB MCV 92.3 79.0 - 98.0 FL LAB HEMETOLOGY METHOD 11/24/2024 7:44 AM [facility] LAB MCH 29.0 27.0 - 32.0 pcg LAB HEMETOLOGY METHOD 11/24/2024 7:44 AM [facility] LAB MCHC 31.5(L) 32.0 - 37.0 g/dL LAB HEMETOLOGY METHOD 11/24/2024 7:44 AM [facility] LAB RDW 14.1 11.0 - 15.0 % LAB HEMETOLOGY METHOD 11/24/2024 7:44 AM [facility] LAB Platelets 234 130 - 400 K/mcL LAB HEMETOLOGY METHOD 11/24/2024 7:44 AM [facility] LAB MPV 10.8 7.0 - 11.0 FL LAB HEMETOLOGY METHOD 11/24/2024 7:44 AM [facility] LAB NRBC 0.0 <1.0 % LAB HEMETOLOGY METHOD 11/24/2024 7:44 AM [facility] LAB NRBC Absolute 0.00 <0.10 K/mcL LAB HEMETOLOGY METHOD 11/24/2024 7:44 AM [facility] LAB Neutrophils Relative 45.3 % LAB HEMETOLOGY METHOD 11/24/2024 7:44 AM [facility] LAB Lymphocytes Relative 39.0 % LAB HEMETOLOGY METHOD 11/24/2024 7:44 AM [facility] LAB Monocytes Relative 11.5 % LAB HEMETOLOGY METHOD 11/24/2024 7:44 AM [facility] LAB Eosinophils Relative 3.5 % LAB HEMETOLOGY METHOD 11/24/2024 7:44 AM [facility] LAB Basophils Relative 0.6 % LAB HEMETOLOGY METHOD 11/24/2024 7:44 AM [facility] LAB Immature Granulocytes Relative 0.1 % LAB HEMETOLOGY METHOD 11/24/2024 7:44 AM [facility] LAB Neutrophils Absolute 3.09 1.50 - 7.00 K/mcL LAB HEMETOLOGY METHOD 11/24/2024 7:44 AM [facility] LAB Lymphocytes Absolute 2.67 1.00 - 5.00 K/mcL LAB HEMETOLOGY METHOD 11/24/2024 7:44 AM [facility] LAB Monocytes Absolute 0.79 0.20 - 1.00 K/mcL LAB HEMETOLOGY METHOD 11/24/2024 7:44 AM [facility] LAB Eosinophils Absolute 0.24 0.00 - 0.50 K/mcL LAB HEMETOLOGY METHOD 11/24/2024 7:44 AM [facility] LAB Basophils Absolute 0.04 0.00 - 0.20 K/mcL LAB HEMETOLOGY METHOD 11/24/2024 7:44 AM [facility] LAB Immature Granulocytes Absolute 0.01 0.00 - 0.03 K/mcL LAB HEMETOLOGY METHOD 11/24/2024 7:44 AM [facility] LAB Blood Venous blood specimen / Unknown 11/24/2024 6:47 AM EST 11/24/2024 7:20 AM EST us Camron Sabillon MD LAB BLOOD ORDERABLES Final Resul t [facility] [address] [place] [address], documented in this encounter Visit Diagnoses Diagnosis Other schizophrenia (CMS/HCC) documented in this encounter
--- OUTSIDE RECORDS SUMMARY | 2024-11-25 15:32 | XMS_ITS | Encounter Summary ---
Author Organization [employer] [facility] Address [address] [place] [address] Care Team Providers Care Cash Poster Name Role Phone Unavailable Primary Care Provider Unavailabl e Encounter Details Date Type Department Care Team (Late st Contact Info) Description 09/01/2024 Lab Requisition [facility] - Main Lab 299 [facility] [place] [address] Camron Sabillon MD [address] [place] [address] [address] [place], [place] Other schizophrenia (CMS/HCC) Social History Tobacco [...] AM EST) WBC 6.7 4.8 - 10.8 K/[facility] LAB HEMETOLOGY METHOD 09/01/2024 8:[address] [facility] LAB RBC 3.80 3.80 - 4.80 M/[facility] LAB HEMETOLOGY METHOD 09/01/2024 8:06 AM [facility] LAB Hemoglobin 11.0(L) 11.5 - 16.0 g/dL LAB HEMETOLOGY METHOD 09/01/2024 8:06 AM [facility] LAB Hematocrit 34.8(L) 35.0 - 47.0 % LAB HEMETOLOGY METHOD 09/01/2024 8:06 AM [facility] LAB MCV 92.1 79.0 - 98.0 FL LAB HEMETOLOGY METHOD 09/01/2024 8:06 AM [facility] LAB MCH 29.1 27.0 - 32.0 pcg LAB HEMETOLOGY METHOD 09/01/2024 8:06 AM [facility] LAB MCHC 31.6(L) 32.0 - 37.0 g/dL LAB HEMETOLOGY METHOD 09/01/2024 8:06 AM [facility] LAB RDW 13.9 11.0 - 15.0 % LAB HEMETOLOGY METHOD 09/01/2024 8:06 AM [facility] LAB Platelets 216 130 - 400 K/mcL LAB HEMETOLOGY METHOD 09/01/2024 8:06 AM [facility] LAB MPV 10.8 7.0 - 11.0 FL LAB HEMETOLOGY METHOD 09/01/2024 8:06 AM [facility] LAB NRBC 0.0 <1.0 % LAB HEMETOLOGY METHOD 09/01/2024 8:06 AM [facility] LAB NRBC Absolute 0.00 <0.10 K/mcL LAB HEMETOLOGY METHOD 09/01/2024 8:06 AM [facility] LAB Neutrophils Relative 50.7 % LAB HEMETOLOGY METHOD 09/01/2024 8:06 AM [facility] LAB Lymphocytes Relative 35.5 % LAB HEMETOLOGY METHOD 09/01/2024 8:06 AM [facility] LAB Monocytes Relative 10.6 % LAB HEMETOLOGY METHOD 09/01/2024 8:06 AM [facility] LAB Eosinophils Relative 2.5 % LAB HEMETOLOGY METHOD 09/01/2024 8:06 AM [facility] LAB Basophils Relative 0.4 % LAB HEMETOLOGY METHOD 09/01/2024 8:06 AM [facility] LAB Immature Granulocytes Relative 0.3 % LAB HEMETOLOGY METHOD 09/01/2024 8:06 AM [facility] LAB Neutrophils Absolute 3.38 1.50 - 7.00 K/mcL LAB HEMETOLOGY METHOD 09/01/2024 8:06 AM [facility] LAB Lymphocytes Absolute 2.37 1.00 - 5.00 K/mcL LAB HEMETOLOGY METHOD 09/01/2024 8:06 AM [facility] LAB Monocytes Absolute 0.71 0.20 - 1.00 K/mcL LAB HEMETOLOGY METHOD 09/01/2024 8:06 AM [facility] LAB Eosinophils Absolute 0.17 0.00 - 0.50 K/mcL LAB HEMETOLOGY METHOD 09/01/2024 8:06 AM [facility] LAB Basophils Absolute 0.03 0.00 - 0.20 K/mcL LAB HEMETOLOGY METHOD 09/01/2024 8:06 AM [facility] LAB Immature Granulocytes Absolute 0.02 0.00 - 0.03 K/mcL LAB HEMETOLOGY METHOD 09/01/2024 8:06 AM [facility] LAB Blood Venous blood specimen / Unknown 09/01/2024 6:48 AM EST 09/01/2024 7:37 AM EST us Camron Sabillon MD LAB BLOOD ORDERABLES Final Resul t [facility] [address] [place] [address], documented in this encounter Visit Diagnoses Diagnosis Other schizophrenia (CMS/HCC) documented in this encounter
--- OUTSIDE RECORDS SUMMARY | 2024-11-25 15:32 | XMS_ITS | Encounter Summary ---
Author Organization [employer] Address [address] [place] [address] Care Team Providers Care Dispatcher Service Chief Name Role Phone Unavailable Primary Care Provider Unavailabl e Encounter Details Date Type Department Care Team (Late st Contact Info) Description 10/27/2024 Lab Requisition [facility] - Main Lab 299 [facility] [place] [address] Camron Sabillon MD [address] [place] [address] Dr [address] [place], [place] Type 2 diabetes mellitus without complications [...] AM EST) WBC 7.2 4.8 - 10.8 K/[facility] LAB HEMETOLOGY METHOD 10/27/2024 7:36 AM [facility] LAB RBC 4.00 3.80 - 4.80 M/[facility] LAB HEMETOLOGY METHOD 10/27/2024 7:36 AM [facility] LAB Hemoglobin 11.6 11.5 - 16.0 g/dL LAB HEMETOLOGY METHOD 10/27/2024 7:36 AM [facility] LAB Hematocrit 37.3 35.0 - 47.0 % LAB HEMETOLOGY METHOD 10/27/2024 7:36 AM [facility] LAB MCV 92.3 79.0 - 98.0 FL LAB HEMETOLOGY METHOD 10/27/2024 7:36 AM [facility] LAB MCH 28.7 27.0 - 32.0 pcg LAB HEMETOLOGY METHOD 10/27/2024 7:36 AM [facility] LAB MCHC 31.1(L) 32.0 - 37.0 g/dL LAB HEMETOLOGY METHOD 10/27/2024 7:36 AM [facility] LAB RDW 13.8 11.0 - 15.0 % LAB HEMETOLOGY METHOD 10/27/2024 7:36 AM [facility] LAB Platelets 222 130 - 400 K/[facility] LAB HEMETOLOGY METHOD 10/27/2024 7:36 AM [facility] LAB MPV 10.6 7.0 - 11.0 FL LAB HEMETOLOGY METHOD 10/27/2024 7:36 AM [facility] LAB NRBC 0.0 <1.0 % LAB HEMETOLOGY METHOD 10/27/2024 7:36 AM [facility] LAB NRBC Absolute 0.00 <0.10 K/[facility] LAB HEMETOLOGY METHOD 10/27/2024 7:36 AM [facility] LAB Neutrophils Relative 51.1 % LAB HEMETOLOGY METHOD 10/27/2024 7:36 AM [facility] LAB Lymphocytes Relative 32.4 % LAB HEMETOLOGY METHOD 10/27/2024 7:36 AM [facility] LAB Monocytes Relative 12.6 % LAB HEMETOLOGY METHOD 10/27/2024 7:36 AM [facility] LAB Eosinophils Relative 2.9 % LAB HEMETOLOGY METHOD 10/27/2024 7:36 AM [facility] LAB Basophils Relative 0.7 % LAB HEMETOLOGY METHOD 10/27/2024 7:36 AM [facility] LAB Immature Granulocytes Relative 0.3 % LAB HEMETOLOGY METHOD 10/27/2024 7:36 AM [facility] LAB Neutrophils Absolute 3.65 1.50 - 7.00 K/mcL LAB HEMETOLOGY METHOD 10/27/2024 7:36 AM [facility] LAB Lymphocytes Absolute 2.32 1.00 - 5.00 K/mcL LAB HEMETOLOGY METHOD 10/27/2024 7:36 AM [facility] LAB Monocytes Absolute 0.90 0.20 - 1.00 K/mcL LAB HEMETOLOGY METHOD 10/27/2024 7:36 AM [facility] LAB Eosinophils Absolute 0.21 0.00 - 0.50 K/mcL LAB HEMETOLOGY METHOD 10/27/2024 7:36 AM [facility] LAB Basophils Absolute 0.05 0.00 - 0.20 K/mcL LAB HEMETOLOGY METHOD 10/27/2024 7:36 AM [facility] LAB Immature Granulocytes Absolute 0.02 0.00 - 0.03 K/mcL LAB HEMETOLOGY METHOD 10/27/2024 7:36 AM [facility] LAB Blood Venous blood specimen / Unknown 10/27/2024 6:37 AM EST 10/27/2024 7:14 AM EST us Camron Sabillon MD LAB BLOOD ORDERABLES Final Resul t Performing Organization Address City/[facility]/ZIP Co de Phone Number [facility] LAB [address] [place] [address], [place] [phone] * Hemoglobin A1c (10/27/2024 6:37 AM EST) Pathologist [facility] Hemoglobin A1C 6.2 <6.5 % LAB CHEMISTRY METHOD 10/27/2024 11:[address] [facility] LAB Mean Bld Glu Estim. 131 mg/dL LAB CHEMISTRY METHOD 10/27/2024 11:[address] [facility] LAB Blood Venous blood specimen / Unknown 10/27/2024 6:37 AM EST 10/27/2024 7:14 AM EST us Camron Sabillon MD LAB BLOOD ORDERABLES Final Resul t Performing Organization Address [facility]/ZIP Co de Phone Number [facility] [address] [place] [address], [place] [phone] * (ABNORMAL) Comprehensive metabolic panel (10/27/2024 6:37 AM EST) [facility] Sodium 140 133 - 145 mmol/L LAB CHEMISTRY METHOD 10/27/2024 9:50 AM [facility] LAB Potassium 3.8 3.5 - 5.5 mmol/L LAB CHEMISTRY METHOD 10/27/2024 9:50 AM [facility] LAB Chloride 105 96 - 110 mmol/L LAB CHEMISTRY METHOD 10/27/2024 9:50 AM [facility] LAB CO2 29 21 - 32 mmol/L LAB CHEMISTRY METHOD 10/27/2024 9:50 AM [facility] LAB Anion Gap 6 3 - 11 LAB CHEMISTRY METHOD 10/27/2024 9:50 AM [facility] LAB Glucose 105(H) 70 - 100 mg/dL LAB CHEMISTRY METHOD 10/27/2024 9:50 AM [facility] BUN 14 5 - 25 mg/dL LAB CHEMISTRY METHOD 10/27/2024 9:50 AM [facility] LAB Creatinine 0.92 0.50 - 1.10 mg/dL LAB CHEMISTRY METHOD 10/27/2024 9:50 AM [facility] LAB eGFR 74 >=60 mL/min/1. 73m2 LAB CHEMISTRY METHOD 10/27/2024 9:50 AM [facility] LAB Comment:Calculation based on the??Chronic Kidney Disease Epidemiology Collaboration (CKD-EPI) equation refit??without adjustment for race. BUN/Creatinine Ratio 15.2 LAB CHEMISTRY METHOD 10/27/2024 9:50 AM [facility] LAB Calcium 8.8 8.5 - 10.5 mg/dL LAB CHEMISTRY METHOD 10/27/2024 9:50 AM [facility] LAB AST (SGOT) 14 10 - 42 unit/L LAB CHEMISTRY METHOD 10/27/2024 9:50 AM [facility] LAB ALT (SGPT) 18 10 - 60 unit/L LAB CHEMISTRY METHOD 10/27/2024 9:50 AM [facility] LAB Alkaline Phosphatase 96 42 - 121 unit/L LAB CHEMISTRY METHOD 10/27/2024 9:50 AM [facility] Total Protein 6.4 6.0 - 8.0 g/dL LAB CHEMISTRY METHOD 10/27/2024 9:50 AM [facility] LAB Albumin 3.1(L) 3.2 - 5.0 g/dL LAB CHEMISTRY METHOD 10/27/2024 9:50 AM [facility] Total Bilirubin 0.3 0.0 - 1.4 mg/dL LAB CHEMISTRY METHOD 10/27/2024 9:50 AM [facility] Blood Venous blood specimen / Unknown 10/27/2024 6:37 AM EST 10/27/2024 7:14 AM EST us Camron Sabillon MD LAB BLOOD ORDERABLES Final Resul t [facility] ([facility]) [facility] LAB [address] [place] [address], documented in this encounter Visit Diagnoses Diagnosis Type 2 diabetes mellitus without complications (CMS/HCC) Other schizophrenia (CMS/HCC) documented in this encounter
--- OUTSIDE RECORDS SUMMARY | 2024-11-25 15:32 | XMS_ITS | Clinical Summary ---
Author Organization [address] [facility] Address [address] [place] [address] Phone Care Team Providers Care Estate Manager Name Role Phone Unavailable Primary Care Provider Unavailabl e Encounters Date Type Department Care Team Description 11/24/2024 Lab Requisition [facility] - Main Lab [address] [place] [phone] Camron Sabillon MD Other schizophrenia ([facility]) 10/27/2024 Lab Requisition [facility] - Main Lab [address] [place] [phone] Camron Sabillon MD Type 2 diabetes mellitus without complications ([facility]); Other schizophrenia ([facility]) 09/30/2024 Lab Requisition [facility] - Main Lab [address] [place] [phone] Camron Sabillon MD Hyperlipidemia, unspecified; Other half-way (current) drug therapy; Other schizophrenia ([facility]) 09/01/2024 Lab Requisition [facility] Lab [address] [place] [phone] Camron Sabillon MD Other schizophrenia ([facility]) from Last 3 Months Social History Tobacco Use Types Packs/Day Years Used Date Smoking Tobacco: Never Assessed Comments Unknown Sex and Gender Information Value Date Recorded Sex Assigned at Not on file Legal Sex Female 10:06 PM EST Gender Identity Not on file Sexual Orientation Not on file Plan of Treatment Health Maintenance Due Date Last Done Comments Breast Cancer Screening 1969 Diabetes: Annual Foot Exam 1979 Diabetes: Annual Retina Eye Exam 1979 DTaP,Tdap,and Td Vaccines (1 - Tdap) 1988 Hepatitis B Vaccines (1 of 3 - 19+ 3-dose series) 1988 Pneumococcal Vaccine: 50+ Ye ars (1 of 2 - PCV) 1988 Pneumococcal Vaccine: Pediat rics (0 to 5 Years) and At-Risk Patients (6 to 64 Years) (1 of 2 - PCV) 1988 Cervical Cancer Screening: P ap Smear 1990 Zoster Vaccines (1 of 2) 2019 Cholesterol Screening (Lipid Panel) 09/07/2022 Colorectal Cancer Screening: Colonoscopy 09/07/2022 Depression Screening 09/07/2022 HIV Screening 09/07/2022 Hepatitis C Screening 09/07/2022 Medicare Annual Wellness Visit 09/07/2022 Social Influencers of Health Screening 09/07/2022 COVID-19 Vaccine (2023-2 5 season) 2024 Influenza Vaccine (#1) 2024 [...] patient's age to complete this topic Meningococcal B Vacine Aged Out No lo nger eligible based on patient's age to complete [...] 6:47 AM EST Other schizophrenia (CMS/HCC) CBC WITH AUTO DIFFERENTIAL Routine 10/27/2024 6:37 [...] 09/30/2024 6:56 AM EST Hyperlipidemia, unspecified Other director long term care (current) drug therapy Other schizophrenia (CMS/HCC) THYROXINE FREE Routine 09/30/2024 6:56 AM EST Hyperlipidemia, unspecified Other director long term care (current) drug therapy Other schizophrenia (CMS/HCC) THYROID STIMULATING HORMONE Routine 09/30/2024 6:56 AM EST Hyperlipidemia, unspecified Other director long term care (current) drug therapy Other schizophrenia (CMS/HCC) HEPATIC FUNCTION PANEL Routine 09/30/2024 6:56 AM EST Hyperlipidemia, unspecified Other director long term care (current) drug therapy Other schizophrenia (CMS/HCC) CBC AND DIFFERENTIAL Routine 09/30/2024 6:56 AM EST Hyperlipidemia, unspecified Other director long term care (current) drug therapy Other schizophrenia (CMS/HCC) CBC WITH AUTO DIFFERENTIAL Routine 09/01/2024 6:48 AM EST Other schizophrenia (CMS/HCC) CBC AND DIFFERENTIAL Routine 09/01/2024 6:48 AM EST Other schizophrenia (CMS/HCC) from Last 3 Months Results * (ABNORMAL) CBC auto differential (11/24/2024 6:47 AM EST) Only the most recent of4 resultswithin the time period is included. [facility] WBC 6.8 4.8 - 10.8 K/mcL LAB HEMETOLOGY METHOD 11/24/2024 7:44 AM [facility] LAB RBC 3.90 3.80 - 4.80 M/mcL LAB HEMETOLOGY METHOD 11/24/2024 7:44 AM [facility] LAB Hemoglobin 11.3(L) 11.5 - 16.0 g/dL [...] LAB Neutrophils Absolute 3.09 1.50 - 7.00 K/[facility] LAB HEMETOLOGY METHOD 11/24/2024 7:44 AM [facility] LAB Lymphocytes Absolute 2.67 1.00 - 5.00 K/[facility] LAB HEMETOLOGY METHOD 11/24/2024 7:44 AM [facility] LAB Monocytes Absolute 0.79 0.20 - 1.00 K/[facility] LAB HEMETOLOGY METHOD 11/24/2024 7:44 AM [facility] LAB Eosinophils Absolute 0.24 0.00 - 0.50 K/[facility] LAB HEMETOLOGY METHOD 11/24/2024 7:44 AM [facility] LAB Basophils Absolute 0.04 0.00 - 0.20 K/[facility] LAB HEMETOLOGY METHOD 11/24/2024 7:44 AM [facility] LAB Immature Granulocytes Absolute 0.01 0.00 - 0.03 K/[facility] LAB HEMETOLOGY METHOD 11/24/2024 7:44 AM [facility] LAB Blood Venous blood specimen / Unknown 11/24/2024 6:47 AM EST 11/24/2024 7:20 AM EST us Camron Sabillon MD LAB BLOOD ORDERABLES Final Resul t Performing Organization Address [facility]/ZIP Co de Phone Number [facility] [address] [place] [address], [place] [phone] * Hemoglobin A1c (10/27/2024 6:37 AM EST) Pathologist [facility] Hemoglobin A1C 6.2 <6.5 % LAB CHEMISTRY METHOD 10/27/2024 11:57 AM EST [facility] Mean Bld Glu Estim. 131 mg/dL LAB CHEMISTRY METHOD 10/27/2024 11:57 AM EST [facility] Blood Venous blood specimen / Unknown 10/27/2024 6:37 AM EST 10/27/2024 7:14 AM EST us Camron Sabillon MD LAB BLOOD ORDERABLES Final Resul t Performing Organization Address [facility]/ZIP Co de Phone Number [facility] [address] [place] [address], [place] [phone] * (ABNORMAL) Comprehensive metabolic panel (10/27/2024 6:37 AM EST) Pathologist [facility] Sodium 140 133 - 145 mmol/L LAB CHEMISTRY METHOD 10/27/2024 9:50 AM EST [facility] LAB Potassium 3.8 3.5 - 5.5 mmol/L LAB CHEMISTRY METHOD 10/27/2024 9:50 AM EST [facility] Chloride 105 96 - 110 mmol/L LAB CHEMISTRY METHOD 10/27/2024 9:50 AM EST [facility] CO2 29 21 - 32 mmol/L LAB CHEMISTRY METHOD 10/27/2024 9:50 AM EST [facility] Anion Gap 6 3 - 11 LAB CHEMISTRY METHOD 10/27/2024 9:50 AM EST [facility] LAB Glucose 105(H) 70 - 100 mg/dL LAB CHEMISTRY METHOD 10/27/2024 9:50 AM [facility] LAB BUN 14 5 - 25 mg/dL LAB CHEMISTRY METHOD 10/27/2024 9:50 AM [facility] LAB Creatinine 0.92 0.50 - 1.10 mg/dL LAB CHEMISTRY METHOD 10/27/2024 9:50 AM [facility] LAB eGFR 74 >=60 mL/min/1. 73m2 LAB CHEMISTRY METHOD 10/27/2024 9:50 AM [facility] LAB Comment:Calculation based on the??Chronic Kidney Disease Epidemiology Collaboration (CKD-EPI) equation refit??without adjustment for race. BUN/Creatinine Ratio 15.2 LAB CHEMISTRY METHOD 10/27/2024 9:50 AM [facility] LAB Calcium 8.8 8.5 - 10.5 mg/dL LAB CHEMISTRY METHOD 10/27/2024 9:50 AM [facility] LAB AST (SGOT) 14 10 - 42 unit/L LAB CHEMISTRY METHOD 10/27/2024 9:50 AM [facility] LAB ALT (SGPT) 18 10 - 60 unit/L LAB CHEMISTRY METHOD 10/27/2024 9:50 AM [facility] LAB Alkaline Phosphatase 96 42 - 121 unit/L LAB CHEMISTRY METHOD 10/27/2024 9:50 AM [facility] LAB Total Protein 6.4 6.0 - 8.0 g/dL LAB CHEMISTRY METHOD 10/27/2024 9:50 AM [facility] LAB Albumin 3.1(L) 3.2 - 5.0 g/dL LAB CHEMISTRY METHOD 10/27/2024 9:50 AM [facility] LAB Total Bilirubin 0.3 0.0 - 1.4 mg/dL LAB CHEMISTRY METHOD 10/27/2024 9:50 AM [facility] LAB Blood Venous blood specimen / Unknown 10/27/2024 6:37 AM EST 10/27/2024 7:14 AM EST us Camron Sabillon MD LAB BLOOD ORDERABLES Final Resul t Performing Organization Address [facility] de Phone Number [facility] [address] [place] [address], [place] [phone] * Thyroid stimulating hormone (09/30/2024 6:56 AM EST) TSH 1.18 0.40 - 4.00 mcIU/mL LAB CHEMISTRY METHOD 09/30/2024 8:56 AM EST [facility] Blood Venous blood specimen / Unknown 09/30/2024 6:56 AM EST 09/30/2024 7:32 AM EST us Camron Sabillon MD LAB BLOOD ORDERABLES Final Resul t Performing Organization Address [facility] de Phone Number [facility] [address] [place] [address], [place] [phone] * Thyroxine free (09/30/2024 6:56 AM EST) Free T4 1.03 0.70 - 1.80 ng/dL LAB CHEMISTRY METHOD 09/30/2024 8:56 AM EST [facility] Blood Venous blood specimen / Unknown 09/30/2024 6:56 AM EST 09/30/2024 7:32 AM EST us Camron Sabillon MD LAB BLOOD ORDERABLES Final Resul t Performing Organization Address [facility] de Phone Number [facility] [address] [place] [address], [place] [phone] * Hepatic function panel (09/30/2024 6:56 AM EST) Total Protein 6.3 6.0 - 8.0 g/dL LAB CHEMISTRY METHOD 09/30/2024 12:36 PM EST [facility] Albumin 3.2 3.2 - 5.0 g/dL LAB CHEMISTRY METHOD 09/30/2024 12:36 PM [facility] Total Bilirubin 0.4 0.0 - 1.4 mg/dL LAB CHEMISTRY METHOD 09/30/2024 12:36 PM [facility] LAB Bilirubin, Direct <0.1 0.0 - 0.3 mg/dL LAB CHEMISTRY METHOD 09/30/2024 12:36 PM [facility] Bilirubin, Indirect LAB CHEMISTRY METHOD 09/30/2024 12:36 PM [facility] LAB Comment:Unable to calculate Indirect Bilirubin. ALT (SGPT) 15 10 - 60 unit/L LAB CHEMISTRY METHOD 09/30/2024 12:36 PM [facility] LAB AST (SGOT) 12 10 - 42 unit/L LAB CHEMISTRY METHOD 09/30/2024 12:36 PM [facility] LAB Alkaline Phosphatase 96 42 - 121 unit/L LAB CHEMISTRY METHOD 09/30/2024 12:36 PM [facility] Blood Venous blood specimen / Unknown 09/30/2024 6:56 AM EST 09/30/2024 7:32 AM EST us Camron Sabillon MD LAB BLOOD ORDERABLES Final Resul t [facility] [address] [place] [address], from Last 3 Months Insurance MEDICARE [place]ICAID - [place]
--- OUTSIDE RECORDS SUMMARY | 2024-11-25 15:32 | XMS_ITS | Encounter Summary ---
Author Organization [employer] Address [address] [place] [address] Care Team Providers Care Electric Tripper Machine Operator Name Role Phone Unavailable Primary Care Provider Unavailabl e Encounter Details Date Type Department Care Team (Late st Contact Info) Description 08/10/2024 Lab Requisition [facility] - Main Lab 299 [facility] [place] [address] Camron Sabillon MD [address] [place] [address] Dr [address] [place], [place] Other schizophrenia (CMS/HCC) Social History Tobacco [...] AM EST) WBC 5.7 4.8 - 10.8 K/[facility] LAB HEMETOLOGY METHOD 08/10/2024 7:31 AM EST [facility] LAB RBC 4.00 3.80 - 4.80 M/[facility] LAB HEMETOLOGY METHOD 08/10/2024 7:31 AM EST [facility] LAB Hemoglobin 11.4(L) 11.5 - 16.0 g/dL LAB HEMETOLOGY METHOD 08/10/2024 7:31 AM [facility] LAB Hematocrit 36.6 35.0 - 47.0 % LAB HEMETOLOGY METHOD 08/10/2024 7:31 AM [facility] LAB MCV 90.8 79.0 - 98.0 FL LAB HEMETOLOGY METHOD 08/10/2024 7:31 AM [facility] LAB MCH 28.3 27.0 - 32.0 pcg LAB HEMETOLOGY METHOD 08/10/2024 7:31 AM [facility] LAB MCHC 31.1(L) 32.0 - 37.0 g/dL LAB HEMETOLOGY METHOD 08/10/2024 7:31 AM [facility] LAB RDW 14.1 11.0 - 15.0 % LAB HEMETOLOGY METHOD 08/10/2024 7:31 AM [facility] LAB Platelets 215 130 - 400 K/mcL LAB HEMETOLOGY METHOD 08/10/2024 7:31 AM [facility] LAB MPV 10.8 7.0 - 11.0 FL LAB HEMETOLOGY METHOD 08/10/2024 7:31 AM [facility] LAB NRBC 0.0 <1.0 % LAB HEMETOLOGY METHOD 08/10/2024 7:31 AM [facility] LAB NRBC Absolute 0.00 <0.10 K/mcL LAB HEMETOLOGY METHOD 08/10/2024 7:31 AM [facility] LAB Neutrophils Relative 57.7 % LAB HEMETOLOGY METHOD 08/10/2024 7:31 AM [facility] LAB Lymphocytes Relative 26.8 % LAB HEMETOLOGY METHOD 08/10/2024 7:31 AM [facility] LAB Monocytes Relative 14.0 % LAB HEMETOLOGY METHOD 08/10/2024 7:31 AM [facility] LAB Eosinophils Relative 0.7 % LAB HEMETOLOGY METHOD 08/10/2024 7:31 AM [facility] LAB Basophils Relative 0.4 % LAB HEMETOLOGY METHOD 08/10/2024 7:31 AM [facility] LAB Immature Granulocytes Relative 0.4 % LAB HEMETOLOGY METHOD 08/10/2024 7:31 AM [facility] LAB Neutrophils Absolute 3.29 1.50 - 7.00 K/mcL LAB HEMETOLOGY METHOD 08/10/2024 7:31 AM [facility] LAB Lymphocytes Absolute 1.53 1.00 - 5.00 K/mcL LAB HEMETOLOGY METHOD 08/10/2024 7:31 AM [facility] LAB Monocytes Absolute 0.80 0.20 - 1.00 K/mcL LAB HEMETOLOGY METHOD 08/10/2024 7:31 AM [facility] LAB Eosinophils Absolute 0.04 0.00 - 0.50 K/mcL LAB HEMETOLOGY METHOD 08/10/2024 7:31 AM [facility] LAB Basophils Absolute 0.02 0.00 - 0.20 K/mcL LAB HEMETOLOGY METHOD 08/10/2024 7:31 AM [facility] LAB Immature Granulocytes Absolute 0.02 0.00 - 0.03 K/mcL LAB HEMETOLOGY METHOD 08/10/2024 7:31 AM [facility] LAB Blood Venous blood specimen / Unknown 08/10/2024 5:46 AM EST 08/10/2024 7:05 AM EST us Camron Sabillon MD LAB BLOOD ORDERABLES Final Resul t [facility] [address] [place] [address], * (ABNORMAL) Hepatic function panel (08/10/2024 5:46 AM EST) Total Protein 6.2 6.0 - 8.0 g/dL LAB CHEMISTRY METHOD 08/10/2024 8:06 AM [facility] Albumin 3.1(L) 3.2 - 5.0 g/dL LAB CHEMISTRY METHOD 08/10/2024 8:06 AM [facility] Total Bilirubin 0.4 0.0 - 1.4 mg/dL LAB CHEMISTRY METHOD 08/10/2024 8:06 AM [facility] LAB Bilirubin, Direct 0.1 0.0 - 0.3 mg/dL LAB CHEMISTRY METHOD 08/10/2024 8:06 AM [facility] LAB Bilirubin, Indirect 0.3 0.0 - 1.1 mg/dL LAB CHEMISTRY METHOD 08/10/2024 8:06 AM [facility] LAB ALT (SGPT) 17 10 - 60 unit/L LAB CHEMISTRY METHOD 08/10/2024 8:06 AM [facility] LAB AST (SGOT) 15 10 - 42 unit/L LAB CHEMISTRY METHOD 08/10/2024 8:06 AM [facility] LAB Alkaline Phosphatase 107 42 - 121 unit/L LAB CHEMISTRY METHOD 08/10/2024 8:06 AM [facility] LAB Blood Venous blood specimen / Unknown 08/10/2024 5:46 AM EST 08/10/2024 7:05 AM EST us Camron Sabillon MD LAB BLOOD ORDERABLES Final Resul t [facility] [address] [place] [address], documented in this encounter Visit Diagnoses Diagnosis Other schizophrenia (CMS/HCC) documented in this encounter
[2024-11-26 11:02] LABS: Adenovirus F 40/41 Not Detected (Not Detect.); Astrovirus Not Detected (Not Detect.); Campylobacter Not Detected (Not Detect.); Cryptosporidium Not Detected (Not Detect.); Cyclospora cayetanensis Not Detected (Not Detect.); E. coli EAEC Not Detected (Not Detect.); E. coli EPEC Not Detected (Not Detect.); E. coli ETEC Not Detected (Not Detect.); E. coli STEC Not Detected (Not Detect.); Entamoeba histolytica Not Detected (Not Detect.); Giardia lamblia Not Detected (Not Detect.); Plesiomonas shigelloides Not Detected (Not Detect.); Rotavirus A Not Detected (Not Detect.); Salmonella Not Detected (Not Detect.); Sapovirus Not Detected (Not Detect.); Shigella sp./EIEC Not Detected (Not Detect.); Vibrio Not Detected (Not Detect.); Vibrio Cholerae Not Detected (Not Detect.); Yersinia enterocolitica Not Detected (Not Detect.)
[2024-11-26 12:36] LABS: Norovirus GI/GII Detected (Not Detect.)
== END 2024-11-25 14:17 | disposition home or self-care (01) ==
LOC: HO.LNP 14:16
PROVIDERS: Visit Provider Internal Medicine
DX: R19.7 Diarrhea, unspecified (principal)
CPT/HCPCS: 87507

== ENCOUNTER 2025-03-17 13:25 | Outpatient (REF) | payer MEDICARE, MEDICAID, SELFPAY ==
--- OUTSIDE RECORDS SUMMARY | 2025-03-17 15:40 | XMS_ITS | Encounter Summary ---
Author Organization [facility] Address [address] [place] [address] Care Team Providers Care Coal Handler Name Role Phone Camron Sabillon MD Primary Care Provider [phone] Encounter Details Date Type Department Care Team (Late st Contact Info) Description 02/15/[address] [facility] - Main Lab [address] [facility] [place] [address] Camron Sabillon MD [address] [place] [address] [address] [place], [place] Other schizophrenia ([facility] V24, [facility] V28) Social History Tobacco Use Types Packs/Day Years [...] Diagnosis Comments CBC WITH AUTO DIFFERENTIAL Routine 02/15/2025 6:43 AM EDT Other schizophrenia ([facility]/HCC V24, [facility] V28) CBC AND DIFFERENTIAL Routine 02/15/2025 6:43 AM EDT Other schizophrenia ([facility]/HCC V24, [facility] V28) documented in this encounter Results * (ABNORMAL) CBC auto differential (02/15/2025 6:43 AM EDT) WBC 7.4 4.8 - 10.8 K/[facility] LAB HEMETOLOGY METHOD 02/15/2025 8:27 AM EDT [facility] RBC 4.10 3.80 - 4.80 M/[facility] LAB HEMETOLOGY METHOD 02/15/2025 8:27 AM EDT [facility] Hemoglobin 11.7 11.5 - 16.0 g/dL LAB HEMETOLOGY METHOD 02/15/2025 8:27 AM [facility] LAB Hematocrit 37.4 35.0 - 47.0 % LAB HEMETOLOGY METHOD 02/15/2025 8:27 AM [facility] LAB MCV 91.9 79.0 - 98.0 FL LAB HEMETOLOGY METHOD 02/15/2025 8:27 AM [facility] LAB MCH 28.7 27.0 - 32.0 pcg LAB HEMETOLOGY METHOD 02/15/2025 8:27 AM [facility] LAB MCHC 31.3(L) 32.0 - 37.0 g/dL LAB HEMETOLOGY METHOD 02/15/2025 8:27 AM [facility] LAB RDW 14.1 11.0 - 15.0 % LAB HEMETOLOGY METHOD 02/15/2025 8:27 AM [facility] LAB Platelets 230 130 - 400 K/mcL LAB HEMETOLOGY METHOD 02/15/2025 8:27 AM [facility] LAB MPV 10.7 7.0 - 11.0 FL LAB HEMETOLOGY METHOD 02/15/2025 8:27 AM [facility] LAB NRBC 0.0 <1.0 % LAB HEMETOLOGY METHOD 02/15/2025 8:27 AM [facility] LAB NRBC Absolute 0.00 <0.10 K/mcL LAB HEMETOLOGY METHOD 02/15/2025 8:27 AM [facility] Neutrophils Relative 42.6 % LAB HEMETOLOGY METHOD 02/15/2025 8:27 AM [facility] Lymphocytes Relative 40.0 % LAB HEMETOLOGY METHOD 02/15/2025 8:27 AM [facility] Monocytes Relative 11.7 % LAB HEMETOLOGY METHOD 02/15/2025 8:27 AM EDT [facility] Eosinophils Relative 4.8 % LAB HEMETOLOGY METHOD 02/15/2025 8:27 AM EDT [facility] Basophils Relative 0.5 % LAB HEMETOLOGY METHOD 02/15/2025 8:27 AM EDT [facility] Immature Granulocytes Relative 0.4 % LAB HEMETOLOGY METHOD 02/15/2025 8:27 AM EDT [facility] Neutrophils Absolute 3.13 1.50 - 7.00 K/mcL LAB HEMETOLOGY METHOD 02/15/2025 8:27 AM EDT [facility] Lymphocytes Absolute 2.94 1.00 - 5.00 K/mcL LAB HEMETOLOGY METHOD 02/15/2025 8:27 AM [facility] Monocytes Absolute 0.86 0.20 - 1.00 K/mcL LAB HEMETOLOGY METHOD 02/15/2025 8:27 AM EDT [facility] Eosinophils Absolute 0.35 0.00 - 0.50 K/mcL LAB HEMETOLOGY METHOD 02/15/2025 8:27 AM [facility] Basophils Absolute 0.04 0.00 - 0.20 K/mcL LAB HEMETOLOGY METHOD 02/15/2025 8:27 AM T [facility] Immature Granulocytes Absolute 0.03 0.00 - 0.03 K/mcL LAB HEMETOLOGY METHOD 02/15/2025 8:27 AM T [facility] Blood Venous blood specimen / Unknown 02/15/2025 6:43 AM EDT 02/15/2025 7:17 AM EDT us Camron Sabillon MD LAB BLOOD ORDERABLES Final Resul t [facility] [address] [place] [address], documented in this encounter Visit Diagnoses Diagnosis Other schizophrenia (CMS/[facility] V24, [facility] V28) documented in this encounter Care Teams Coal Handler Relationship Specialty Start Date End Date Camron Sabillon MD [address] [place] [address] Dr [address] BRIDGET Leone PCP - General Internal Medicine 11/26/24 documented as of this encounter
== END 2025-03-17 13:26 | disposition home or self-care (01) ==
LOC: HO.MAMMO 13:25
PROVIDERS: PCP Hospitalist; Visit Provider Hospitalist
DX: Z13.89 Encounter for screening for other disorder (principal)

== ENCOUNTER 2025-05-04 13:30 | Outpatient (AMB) | payer MEDICARE, MEDICAID, SELFPAY ==
--- NOTE | 2025-05-04 13:36 | A.OFFVIS_ITS ---
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 Firestopper Technician: Firestopper Technician Present (Tiara) Accompanied by: Other Relationship Allergies amoxicillin (AMOXICILLIN) Allergy (Unknown, Verified 11/10/24 14:30) UNKNOWN fluphenazine (From PROLIXIN) Allergy (Unknown, Verified 11/10/24 14:30) UNKNOWN ibuprofen (IBUPROFEN) Allergy (Unknown, Verified 11/10/24 14:30) UNKNOWN penicillin G procaine Allergy (Unknown, Verified 11/10/24 14:30) Unknown Penicillins (PENICILLINS) Allergy (Unknown, Verified 11/10/24 14:30) UNKNOWN Ibuprofen Allergy (Unknown, Uncoded 04/27/24 13:21) Unknown PROLIXIN Allergy (Unknown, Uncoded 04/27/24 13:21) Unknown Is last menstrual period known: No Post menopausal: Yes Patient : No HPI Comments Details: Presenting for annual exam. No complaints. Last Pap/HPV was negative in 04/27 Last Mammogram was BI-RADS 1 in 03/29 No previous screening Colonoscopy [facility] Medical History Anxiety Convulsions Glaucoma Smoker Hypothyroid Low back pain Hyponatremia COPD (chronic obstructive pulmonary disease) Schizophrenia Diabetes Nausea & vomiting Social History Household Members: Other Household Members Other:: lives in facility Housing: [place] Alcohol intake: former Years Smoked: currently nicotine patch due to lock down at facility Substance Use Type: Crack/Cocaine Patient : No Current occupational status: disabled Female Reproductive History Menstrual Age of Menarche: 13 control method: none Total pregnancies: 1 Ab spontaneous: 1 Date of last pap smear: 04/24/23 (negative pap smear, negative hpv ) Date of Mammogram: 03/11/24 (bi rad 1) Review of Systems Const All systems reviewed & are unremarkable except as noted in HPI and below Card Reports as per HPI Resp Reports as per HPI GI Reports as per HPI and Reports no additional complaints Reports as per HPI Physical Exam Vital Signs: Last Vital Signs BP 124/72 05/04/25 13:40 BMI result Body Mass Index 32.2 Const General: cooperative, healthy appearing and comfortable Chest Chest palpation & inspection: normal inspection of the chest and normal palpation of entire chest wall Breast/axilla inspection: normal inspection of the breasts and normal inspection of the axillae Breast/axilla palpation: normal palpation of the breasts, normal palpation of the axillae and no axillary lymphadenopathy Resp Effort & Inspection: normal respiratory effort Auscultation: clear to auscultation bilaterally Percussion: percussion normal Cardio Palpation: normal PMI Rate: regular rate Rhythm: regular rhythm Heart sounds: no murmurs and no rubs Peripheral pulses: Peripheral pulses 2+ throughout GI Inspection: Yes normal to inspection Palpation (GI): Soft to palpation, nontender, no guarding, not rigid and No hepatosplenomegaly present Percussion: Yes normal to percussion Auscultation: normal bowel sounds Rectal Exam - Female: deferred General: Yes bladder normal to palpation External Female Exam: No lesion Speculum Exam - Vagina: normal appearance of the vagina, normal palpation, normal vaginal discharge and not erythematous Speculum Exam - Cervix: normal appearance of the cervix and normal palpation Bimanual exam- vagina & uterus: normal bimanual exam, normal palpation, uterine size normal, bladder normal to palpation, consistency normal and normal palpation Bimanual Exam- Adnexa, other: normal adnexae, no masses and no tenderness Assessment & Plan Assessment & Plan (1) Well woman exam: Code(s): Z01.419 - Encounter for gynecological examination (general) (routine) without abnormal findings Category: Medical Plan: Co testing not indicated this year. Counseled the patient about the recommended dietary allowance of 1200 mg of Calcium & 600 IU of vitamin D. Mammogram ordered. The patient was referred to GI for screening colonoscopy . The patient was instructed to perform monthly self-breast exams and schedule annual exam in a year. All questions answered and the patient verbalized understanding. Orders: Orders MM tomosynthesis screening BI Today Z12.31 - Encounter for screening mammogram for malignant neoplasm of breast Referrals Gastroenterology Referral Z12.11 - Encounter for screening for malignant neoplasm of colon Coding Level of Care Code Est Pt Prev Care 40-64y(53968) Diagnoses Well woman exam Z01.419
[2025-05-04 13:40] VITALS: BP 124/72; BMI 32.2
--- OUTSIDE RECORDS SUMMARY | 2025-05-04 14:05 | XMS_ITS | Encounter Summary ---
Author Organization [employer] Address [address] [place] [address] Care Team Providers Care Division Chief Name Role Phone Camron Sabillon MD Primary Care Provider [phone] Encounter Details Date Type Department Care Team (Late st Contact Info) Description 08/10/2024 Lab Requisition [facility] - Main Lab [address] [place] [address] Camron Sabillon MD [address] [place] [address] Dr [address] [place], [place] Other schizophrenia (CMS/HCC V24, CMS/HCC V28) Social History Tobacco Use Types Packs/Day [...] AM EST) WBC 5.7 4.8 - 10.8 K/[facility] LAB HEMETOLOGY METHOD 08/10/2024 7:31 AM EST [facility] RBC 4.00 3.80 - 4.80 M/[facility] LAB HEMETOLOGY METHOD 08/10/2024 7:31 AM [facility] LAB Hemoglobin 11.4(L) 11.5 - 16.0 g/dL LAB HEMETOLOGY METHOD 08/10/2024 7:31 AM [facility] LAB Hematocrit 36.6 35.0 - 47.0 % LAB HEMETOLOGY METHOD 08/10/2024 7:31 AM [facility] LAB MCV 90.8 79.0 - 98.0 FL LAB HEMETOLOGY METHOD 08/10/2024 7:31 AM [facility] LAB MCH 28.3 27.0 - 32.0 pcg LAB HEMETOLOGY METHOD 08/10/2024 7:31 AM [facility] LAB MCHC 31.1(L) 32.0 - 37.0 g/dL LAB HEMETOLOGY METHOD 08/10/2024 7:31 AM [facility] LAB RDW 14.1 11.0 - 15.0 % LAB HEMETOLOGY METHOD 08/10/2024 7:31 AM [facility] LAB Platelets 215 130 - 400 K/mcL LAB HEMETOLOGY METHOD 08/10/2024 7:31 AM [facility] LAB MPV 10.8 7.0 - 11.0 FL LAB HEMETOLOGY METHOD 08/10/2024 7:31 AM [facility] LAB NRBC 0.0 <1.0 % LAB HEMETOLOGY METHOD 08/10/2024 7:31 AM [facility] NRBC Absolute 0.00 <0.10 K/mcL LAB HEMETOLOGY METHOD 08/10/2024 7:31 AM [facility] Neutrophils Relative 57.7 % LAB HEMETOLOGY METHOD 08/10/2024 7:31 AM [facility] Lymphocytes Relative 26.8 % LAB HEMETOLOGY METHOD 08/10/2024 7:31 AM [facility] Monocytes Relative 14.0 % LAB HEMETOLOGY METHOD 08/10/2024 7:31 AM [facility] Eosinophils Relative 0.7 % LAB HEMETOLOGY METHOD 08/10/2024 7:31 AM [facility] Basophils Relative 0.4 % LAB HEMETOLOGY METHOD 08/10/2024 7:31 AM [facility] Immature Granulocytes Relative 0.4 % LAB HEMETOLOGY METHOD 08/10/2024 7:31 AM [facility] Neutrophils Absolute 3.29 1.50 - 7.00 K/mcL LAB HEMETOLOGY METHOD 08/10/2024 7:31 AM [facility] Lymphocytes Absolute 1.53 1.00 - 5.00 K/mcL LAB HEMETOLOGY METHOD 08/10/2024 7:31 AM [facility] Monocytes Absolute 0.80 0.20 - 1.00 K/mcL LAB HEMETOLOGY METHOD 08/10/2024 7:31 AM [facility] Eosinophils Absolute 0.04 0.00 - 0.50 K/mcL LAB HEMETOLOGY METHOD 08/10/2024 7:31 AM [facility] Basophils Absolute 0.02 0.00 - 0.20 K/mcL LAB HEMETOLOGY METHOD 08/10/2024 7:31 AM [facility] Immature Granulocytes Absolute 0.02 0.00 - 0.03 K/mcL LAB HEMETOLOGY METHOD 08/10/2024 7:31 AM [facility] LAB Blood Venous blood specimen / Unknown 08/10/2024 5:46 AM EST 08/10/2024 7:05 AM EST us Camron Sabiloln MD LAB BLOOD ORDERABLES Final Resul t [facility] [address] [place] [address], * (ABNORMAL) Hepatic function panel (08/10/2024 5:46 AM EST) Total Protein 6.2 6.0 - 8.0 g/dL LAB CHEMISTRY METHOD 08/10/2024 8:06 AM [facility] Albumin 3.1(L) 3.2 - 5.0 g/dL LAB CHEMISTRY METHOD 08/10/2024 8:06 AM [facility] Total Bilirubin 0.4 0.0 - 1.4 mg/dL LAB CHEMISTRY METHOD 08/10/2024 8:06 AM [facility] Bilirubin, Direct 0.1 0.0 - 0.3 mg/dL LAB CHEMISTRY METHOD 08/10/2024 8:06 AM [facility] Bilirubin, Indirect 0.3 0.0 - 1.1 mg/dL LAB CHEMISTRY METHOD 08/10/2024 8:06 AM [facility] ALT (SGPT) 17 10 - 60 unit/L LAB CHEMISTRY METHOD 08/10/2024 8:06 AM [facility] AST (SGOT) 15 10 - 42 unit/L LAB CHEMISTRY METHOD 08/10/2024 8:06 AM [facility] Alkaline Phosphatase 107 42 - 121 unit/L LAB CHEMISTRY METHOD 08/10/2024 8:06 AM [facility] Blood Venous blood specimen / Unknown 08/10/2024 5:46 AM EST 08/10/2024 7:05 AM EST us Camron Sabillon MD LAB BLOOD ORDERABLES Final Resul t [facility] [address] [place] [address], [place] [phone] documented in this encounter Visit Diagnoses Diagnosis Other schizophrenia (CMS/HCC V24, CMS/HCC V28) documented in this encounter Care Teams Division Chief Relationship Specialty Start Date End Date Camron Sabillon MD [address] [place] [address] Dr [address] BRIDGET Leone PCP - General Internal Medicine 11/26/24 documented as of this encounter
--- OUTSIDE RECORDS SUMMARY | 2025-05-04 14:05 | XMS_ITS | Clinical Summary ---
Author Organization [facility] Address [address] [facility] [address] [place] [address] Phone Care Team Providers Care Tool Machine Set Up Operator Name Role Phone Camron Sabillon Primary Care Provider [phone] Allergies Active Allergy Reactions Criticality Noted Date Comments Penicillins GI Upset 03/07/2021 Medications acetaminophen (TYLENOL) 325 mg tablet Take 650 mg by mouth every 6 (six) hours as needed for mild pain. Active selenium sulfide (ANTI-DANDRUFF) 1 % Sham Apply topically 2 (two) times a week. Active bisacodyl (DULCOLAX) [address] 10 mg rectally daily. Active carBAMazepine, mood stabiliz, 200 mg CM12 Take 200 mg by mouth every 12 (twelve) hours. Active carBAMazepine, mood stabiliz, 100 mg CM12 Take 100 mg by mouth every 12 (twelve) hours. Active clonazePAM (KLONOPIN) 0.5 MG tablet Take 0.5 mg by mouth 2 (two) times a day as needed for anxiety. Active cloZAPine (CLOZARIL) 200 MG tablet Take 200 mg by mouth daily. Active cloZAPine (CLOZARIL) 25 MG tablet Take 25 mg by mouth daily. Active sodium phosphate,mono-d ibasic (FLEET ENEMA RECT) Place rectally. Active FLUoxetine (PROZAC) 40 MG capsule Take 40 mg by mouth daily. Active furosemide (LASIX) 20 MG tablet Take 20 mg by mouth. Active glucagon,human recombinant (GLUCAGON EMERGENCY KIT, HUMAN, INJ) Inject as directed. Active levothyroxine (SYNTHROID, LEVOTHROID) 50 MCG tablet Take 50 mcg by mouth every morning. Active lidocaine 4 % Place 1 patch onto the skin daily. Active metFORMIN (GLUCOPHAGE) 500 MG tablet Take 500 mg by mouth 2 (two) times a day with meals. Active metoprolol succinate (TOPROL-XL) 50 MG 24 hr tablet Take 50 mg by mouth daily. Active sodium chloride 1 gram tablet Take 1 g by mouth 3 (three) times a day. Active senna (SENOKOT) 8.6 mg tablet Take 1 tablet by mouth daily. Active traZODone (DESYREL) 50 MG tablet Take 50 mg by mouth nightly at bedtime. Active diclofenac sodium (VOLTAREN) 1 % Gel Apply topically 4 (four) times a day. Active Resolved Problems Problem Noted Date Diagnosed Date Resolved Date Uterine mass 09/09/2018 03/07/2021 Overview (03/07/2021): Suspect small leiomyoma, possibly stool? U/s was WNL, no masses (under media) Immunizations Immunization Administration Dates Next Due COVID-19 (Pre-07/28) Pfizer Vaccine, mRNA, PF ,10/11/2020 Social History Tobacco Use Types Packs/Day Years Used Date Smoking Tobacco: Every Day Smokeless Tobacco: Never Alcohol Use Standard Drinks/Week Comments Never 0 (1 standard drink = 0.6 oz pur e alcohol) Education Answer Date Recorded Are you interested in more education? Not on aure e 01/31/2023 Are you concerned about learning? Not on file 01/31/2023 No 01/31/2023 No 01/31/2023 Digital Access Answer Date Recorded No 03/01/2023 No 03/01/2023 No 03/01/2023 Reliable internet access at home? Not on file 03/01/2023 Device with a working camera? Not on file Comments No Sex and Gender Information Value Date Recorded Sex Assigned at Not on file Legal Sex Female 3:08 PM EDT Gender Identity Not on file Sexual Orientation Not on file Last Filed Vital Signs Vital Sign Reading Time Taken Comments Blood Pressure 126/74 03/07/2021 9:49 AM EDT Pulse - - Temperature - - Respiratory Rate - - Oxygen Saturation - - Inhaled Oxygen Concentration - - Weight 78.5 kg (173 lb) 03/07/2021 9:49 AM EDT Height 158.8 cm (5' 2.5 ) 03/07/2021 9:49 AM EDT Body Mass Index 31.14 03/07/2021 9:49 AM EDT Plan of Treatment Health Maintenance Due Date Last Done Comments ABSOLUTE NEUTROPHIL COUNT (ANC) 1970 Adult Td,Tdap Booster 1970 CARBAMAZEPINE (TEGRETOL) LEVEL 1970 CREATININE LEVEL 1969 LIPID PANEL 1969 TSH LEVEL 1969 DEPRESSION SCREENING 1981 SMOKING Hx and SMOKELESS TOBACCO SCREENING 1982 HEPATITIS C SCREENING 1987 HIV ONE-TIME SCREENING (18-6 5 YEARS) 1987 PNEUMOCOCCAL VACCINES (50+ years) (1 of 2 - PCV) 1988 MAMMOGRAM 2009 COLOGUARD 2014 COLONOSCOPY 2014 COLORECTAL CANCER SCREENING 2014 FIT TEST 2014 FOBT 2014 SIGMOIDOSCOPY 2014 VIRTUAL COLONOSCOPY 2014 ZOSTER VACCINES (1 of 2) 2019 PAP SMEAR 09/09/2021 09/09/2018, 09/09/2018 COVID-19 VACCINE (3 - 2023-2 5 season) 2024 11/01/2020, 10/11/2020 HEPATITIS A VACCINES Aged Out No long er eligible based on patient's age to complete this topic HIB VACCINES Aged Out No longer eligi ble based on patient's age to complete this topic MENINGOCOCCAL VACCINES (ACWY) Aged Out No longer eligible based on patient's age to complete this topic MENINGOCOCCAL VACCINES (B) Aged Out N o longer eligible based on patient's age to complete this topic Medical Devices Not on file Procedures Procedure Name Priority Date/Time Associated Diagnosis Comments PAP TEST Routine 09/09/2018 12:00 AM EST from Last 3 Months or Most Recently Relevant to Health Maintenance Results * Pap Smear (09/09/2018 12:00 AM EST) 09/09/2018 09/11/2018 10: 59 AM EST Narrative SEE NARRATIVE - 09/16/2018 5:40 [place] [address] Rake Operator: Arlene James MD BILINGUAL NANNY Cytology Report FINAL DIAGNOSIS A. PAP SMEAR (SUREPATH) CE: SPECIMEN ADEQUACY: Satisfactory for evaluation; transformation zone present. INTERPRETATION: NEGATIVE FOR INTRAEPITHELIAL LESION OR MALIGNANCY. Electronically Signed Out By: Negin ELLIS([facility]) The Pap test is a screening test primarily for squamous cancers and precursors and has associated false-negative and false-positive results. New technologies such as liquid-based preparations may decrease but will not eliminate all false-negative results. Regular sampling and follow-up of unexplained clinical signs and symptoms are recommended to minimize false negative results. PROCEDURES/ADDENDA HPV Testing (Requested) Ordered Date: 09/11/2018 HPV Test Negative for high-risk human papillomavirus types 16, 18, 45 and the Other high risk probe set (Includes 31, 33, 35, 39, 51, 52, 56, 58, 59, 66, 68) by [email or web address] On[employer] HR-HPV analysis. Clinical correlation is advised. This HPV test was performed at [facility], [address] [place] [address]. This test has been FDA approved for SurePath cervical cytology specimens. The accuracy and precision of this test for all other specimen sources has been verified in the Cytopathology Laboratory of the [facility] and has not been cleared or approved by the U.S. Food and Drug Administration. Clinical correlation is advised. CLINICAL HISTORY Date of Last Menstrual Period: Not Provided Menstrual History: Post Menopausal Other Clinical Conditions: Screening Pap SPECIMEN SOURCE A: PAP SMEAR (SUREPATH) CE Patient Name: REINA DIMASINE : 1970 (Age: 48) Sex: F Institution: [facility] Location: [facility] Date of Collection: 09/09/2018 Date of Reported: 09/16/2018 17:40 Results to: Amarilys Crocker MD us Amarilys Crocker MD CYTOLOGY ORDERABLES Final Result SEE NARRATIVE from Last 3 Months or Most Recently Relevant to Health Maintenance Insurance MEDICARE PART A & B MEDICAID MEDICARE PART A & B [employer] [place] [id number] MEDICARE PART A & B [employer] [place] [id number] MEDICARE PART A & B MEDICARE PART A & B MEDICARE PART A & B MEDICARE PART A & B MEDICARE PART A & B MEDICAID MEDICARE PART A & B Care Teams Tool Machine Set Up Operator Relationship Specialty Start Date End Date Camron Sabillon DO [address] [place] [address] PCP - General Internal Medicine 03/06/21 Additional Source Comments The information contained in this document represents components of the legal health record. It is not the complete legal health record.[facility]
== END 2025-05-04 13:55 | disposition home or self-care (01) ==
LOC: HO.HWS 13:30
PROVIDERS: PCP Hospitalist; Visit Provider Obstetrics & Gynecology
DX: Z01.419 Encounter for gynecological examination (general) (routine) without abnormal findings (principal)
CPT/HCPCS: G0101

== ENCOUNTER → 2025-05-04 13:30 | Outpatient (BNVA) | payer MEDICARE, MEDICAID, SELFPAY | PROVIDERS: PCP Hospitalist; Visit Provider Obstetrics & Gynecology | DX: Z01.419 Encounter for gynecological examination (general) (routine) without abnormal findings (principal) | CPT/HCPCS: G0101 ==

== ENCOUNTER 2025-06-08 11:59 | Outpatient (REF) | payer MEDICARE, MEDICAID, SELFPAY ==
--- NOTE | ~2025-06-08 | MM_ITS ---
EXAMINATION: MM DIAGNOSTIC DIGITAL BREAST TOMOSYNTHESIS, BILATERAL Limited left breast ultrasound. CLINICAL INFORMATION: Left breast pain upper central breast upper outer quadrant. COMPARISON: Mammography: Comparison is made with relevant prior exams. TECHNIQUE: Digital breast mammography with tomosynthesis is performed in both the craniocaudal and mediolateral oblique views along with computer-aided detection (CAD). FINDINGS: There are scattered areas of fibroglandular density (ACR BI-RADS breast composition Category b). Right: There are no significant masses, abnormal calcifications, or other abnormalities. Left: Kimberly marker in the upper central breast upper outer breast at the site of patient's pain without underlying abnormal finding. No suspicious calcifications masses or other abnormal findings. Targeted color Doppler ultrasound scanning from 11-3 o'clock in the upper central breast upper outer quadrant demonstrates normal fibroglandular breast tissue. There is no sonographic abnormal finding to account for the patient's left breast pain. Results are provided to the patient at time of visit by the technologist. MM/MM tomosynthesis diagnostic BI IMPRESSION: Right: Negative. Left: No mammographic or sonographic abnormal finding to account for the patient's left breast pain. Recommend clinical evaluation and follow-up. ASSESSMENT: BI-RADS BI-RADS 1 - Negative RECOMMENDATION: 1 year F/U This patient's information was entered into a reminder system with a target due date for their next mammogram. Electronically signed by: Agnes Salinas DO 06/08/2025 01:38 PM EDT
--- OUTSIDE RECORDS SUMMARY | 2025-06-08 14:41 | XMS_ITS | Clinical Summary ---
Author Organization [facility] Address [address] [facility] [address] [place] [address] Phone Care Team Providers Care Medical Examiner Name Role Phone Camron Sabillon Primary Care Provider [phone]- [phone] Allergies Active Allergy Reactions Criticality Noted Date [...] 2) 2019 PAP SMEAR 09/09/2021 09/09/2018, 09/09/2018 INFLUENZA VACCINE (#1) 2025 COVID-19 VACCINE (3 - 2024-2 6 season) 2025 11/01/2020, 10/11/2020 HEPATITIS A VACCINES Aged Out [...] SEE NARRATIVE - 09/16/2018 5:40 PM EST [address] [address] Clinical Fellow: Arlene James MD CIGARETTE STAMPER Cytology Report FINAL DIAGNOSIS A. PAP SMEAR (SUREPATH) CE: SPECIMEN ADEQUACY: Satisfactory for evaluation; transformation zone present. INTERPRETATION: NEGATIVE FOR INTRAEPITHELIAL LESION OR MALIGNANCY. Electronically Signed Out By: Negin ELLIS([facility]) The Pap test is a [...] 52, 56, 58, 59, 66, 68) by [employer] HR-HPV analysis. Clinical correlation is advised. This HPV test was performed at [facility], [address] [place] [address]. This test has been FDA approved for SurePath cervical cytology specimens. The accuracy and precision of this test for all other specimen sources has been verified in the Cytopathology Laboratory of the [facility] and has not been cleared or approved by the U.S. Food and Drug Administration. Clinical correlation is advised. CLINICAL HISTORY Date of Last Menstrual Period: Not Provided Menstrual History: Post Menopausal Other Clinical Conditions: Screening Pap SPECIMEN SOURCE A: PAP SMEAR (SUREPATH) CE Patient Name: ANNA DIMAS : 1970 (Age: 48) Sex: F Institution: [facility] Location: [facility] Date of Collection: 09/09/2018 Date of Reported: 09/16/2018 17:40 Results to: Amarilys Crocker MD Amarilys Crocker MD CYTOLOGY ORDERABLES Final Result SEE NARRATIVE from Last 3 Months or Most Recently Relevant to Health Maintenance Insurance MEDICARE PART A & B MEDICARE PART A & B [employer] [place] [id number] MEDICARE PART A & B MEDICARE PART A & B MEDICARE PART A & B MEDICARE PART A & B MEDICARE PART A & B MEDICARE PART A & B MEDICAID MEDICARE PART A & B Care Teams Medical Examiner Relationship Specialty Start Date End Date Camron Sabillon DO [address] [place] [address] PCP - General Internal Medicine 03/06/21 Additional Source Comments The information contained in this document represents components of the legal health record. It is not the complete legal health record.[facility]
--- OUTSIDE RECORDS SUMMARY | 2025-06-08 14:41 | XMS_ITS | Clinical Summary ---
Author Organization [address] [facility] Address [address] [place] [address] Phone Care Team Providers Care Assistant Housekeeping Manager Name Role Phone Camron Sabillon MD Primary Care Provider [phone] Encounters Date Type Department Care Team Description 05/10/2025 Lab Requisition [facility] Lab [address] [place] [address] Camron Sabillon MD Other schizophrenia ([facility] V24, [facility] V28) 04/14/2025 Lab Requisition [facility] Lab [address] [place] [address] Camron Sabillon MD Other schizophrenia ([facility] V24, [facility] V28); Hypo-osmolality and hyponatremia; Hypothyroidism, unspecified; Type 2 diabetes mellitus without complications ([facility] V24, [facility] V28) 03/14/2025 Lab Requisition [facility] Lab [address] [place] [address] Camron Sabillon MD Other schizophrenia ([facility] V24, [facility] V28) from Last 3 Months Social History Tobacco [...] 19+ 3-dose series) 1988 Pneumococcal Vaccine: 50+ Years (1 of 2 - PCV) 1988 Cervical Cancer Screening: P ap Smear 1990 Zoster Vaccines (1 of 2) 2019 Colorectal Cancer Screening: Colonoscopy 09/07/2022 HIV Screening 09/07/2022 Hepatitis C Screening 09/07/2022 Medicare Annual Wellness Visit 09/07/2022 Social Influencers of Health Screening 09/07/2022 Depression Screening 10/06/2024 Diabetes: Annual Urine Albumin-Creatinine Ratio (uACR) 11/01/2024 COVID-19 Vaccine ( - 2023-2 5 season) 2025 Influenza Vaccine (#1) 2025 Diabetes: Blood Sugar Contro l Test (HGBA1C) 10/15/2025 04/14/2025, 01/18/2025, 10/27/2024 Diabetes: Annual GFR (Glomerular Filtration Rate) 04/14/2026 04/14/2025, 01/18/2025, 10/27/2024 Cholesterol Screening (Lipid Panel) 05/10/2030 05/10/2025, 11/26/2024 HIB Vaccines Aged Out No longer eligi [...] age to complete this topic Meningococcal B Vaccine Aged Out No l onger eligible based on patient's age to complete this topic RSV Immunization Patients Under 20 months Aged Out No longer eligible b ased on patient's age to complete this topic Varicella Vaccines Aged Out No longer eligible based on patient's age to complete this topic Procedures Procedure Name Priority Date/Time Associated Diagnosis Comments CBC WITH AUTO DIFFERENTIAL Routine 05/10/2025 6:30 AM EDT Other schizophrenia ([facility] V24, [facility] V28) THYROID STIMULATING HORMONE Routine 05/10/2025 6:30 AM EDT Other schizophrenia ([facility] V24, [facility] V28) CBC AND DIFFERENTIAL Routine 05/10/2025 6:30 AM EDT Other schizophrenia (CMS/HCC V24, CMS/HCC V28) HEPATIC FUNCTION PANEL Routine 05/10/2025 6:30 AM EDT Other schizophrenia (CMS/HCC V24, CMS/HCC V28) LIPID PANEL WITH REFLEX TO DIRECT LDL Routine 05/10/2025 6:30 AM EDT Other schizophrenia (CMS/HCC V24, CMS/HCC V28) LAVENDER - EDTA Routine 04/14/2025 7:11 AM EDT Other schizophrenia (CMS/HCC V24, CMS/HCC V28) Hypo-osmolality and hyponatremia Hypothyroidism, unspecified Type 2 diabetes mellitus without complications (CMS/HCC V24, CMS/HCC V28) CBC WITH AUTO DIFFERENTIAL Routine 04/14/2025 7:11 AM EDT Other schizophrenia (CMS/HCC V24, CMS/HCC V28) Hypo-osmolality and hyponatremia Hypothyroidism, unspecified Type 2 diabetes mellitus without complications (CMS/HCC V24, CMS/HCC V28) HEMOGLOBIN A1C Routine 04/14/2025 7:11 AM EDT Other schizophrenia (CMS/HCC V24, CMS/HCC V28) Hypo-osmolality and hyponatremia Hypothyroidism, unspecified Type 2 diabetes mellitus without complications (CMS/HCC V24, CMS/HCC V28) THYROXINE FREE Routine 04/14/2025 7:11 AM EDT Other schizophrenia (CMS/HCC V24, CMS/HCC V28) Hypo-osmolality and hyponatremia Hypothyroidism, unspecified Type 2 diabetes mellitus without complications (CMS/HCC V24, CMS/HCC V28) THYROID STIMULATING HORMONE Routine 04/14/2025 7:11 AM EDT Other schizophrenia (CMS/HCC V24, CMS/HCC V28) Hypo-osmolality and hyponatremia Hypothyroidism, unspecified Type 2 diabetes mellitus without complications (CMS/HCC V24, CMS/HCC V28) COMPREHENSIVE METABOLIC PANEL Routine 04/14/2025 7:11 AM EDT Other schizophrenia (CMS/HCC V24, CMS/HCC V28) Hypo-osmolality and hyponatremia Hypothyroidism, unspecified Type 2 diabetes mellitus without complications (CMS/HCC V24, CMS/HCC V28) CBC AND DIFFERENTIAL Routine 04/14/2025 7:11 AM EDT Other schizophrenia ([facility]/HCC V24, [facility]/HCC V28) Hypo-osmolality and hyponatremia Hypothyroidism, unspecified Type 2 diabetes mellitus without complications (CMS/HCC V24, CMS/HCC V28) CBC WITH AUTO DIFFERENTIAL Routine 03/14/2025 7:03 AM EDT Other schizophrenia ([facility]/HCC V24, [facility] V28) CBC AND DIFFERENTIAL Routine 03/14/2025 7:03 AM EDT Other schizophrenia ([facility] V24, [facility] V28) from Last 3 Months Results * (ABNORMAL) Lipid panel with reflex to direct LDL (05/10/2025 6:30 AM EDT) Cholesterol 105 0 - 200 mg/dL LAB CHEMISTRY METHOD 05/10/2025 9:22 AM [facility] Triglycerides 124 0 - 150 mg/dL LAB CHEMISTRY METHOD 05/10/2025 9:22 AM [facility] HDL 36(L) >=40 mg/dL LAB CHEMISTRY METHOD 05/10/2025 9:22 AM [facility] LDL Calculated 44 0 - 100 mg/dL LAB CHEMISTRY METHOD 05/10/2025 9:22 AM [facility] Comment:Estimated LDL Calcul ated using equation: Total cholesterol - HDL cholesterol - (Triglycerides/5) VLDL Cholesterol Tanner 24.8 mg/dL LAB CHEMISTRY METHOD 05/10/2025 9:22 AM [facility] Non HDL Chol. (LDL+VLDL) 69 <145 mg/dL LAB CHEMISTRY METHOD 05/10/2025 9:22 AM EDT [facility] Chol/HDL Ratio 2.9 0.0 - 4.4 LAB CHEMISTRY METHOD 05/10/2025 9:22 AM T [facility] Blood Venous blood specimen / Unknown 05/10/2025 6:30 AM EDT 05/10/2025 8:05 AM EDT us Camron Sabillon MD LAB BLOOD ORDERABLES Final Resul t [facility] [address] [place] [address], [place] [phone] * (ABNORMAL) CBC auto differential (05/10/2025 6:30 AM EDT) Only the most recent of3 resultswithin the time period is included. WBC 6.5 4.8 - 10.8 K/mcL LAB HEMETOLOGY METHOD 05/10/2025 8:14 AM [facility] RBC 3.90 3.80 - 4.80 M/mcL LAB HEMETOLOGY METHOD 05/10/2025 8:14 AM [facility] Hemoglobin 11.2(L) 11.5 - 16.0 g/dL LAB HEMETOLOGY METHOD 05/10/2025 8:14 AM [facility] Hematocrit 35.7 35.0 - 47.0 % LAB HEMETOLOGY METHOD 05/10/2025 8:14 AM [facility] MCV 92.2 79.0 - 98.0 FL LAB HEMETOLOGY METHOD 05/10/2025 8:14 AM [facility] MCH 28.9 27.0 - 32.0 pcg LAB HEMETOLOGY METHOD 05/10/2025 8:14 AM [facility] MCHC 31.4(L) 32.0 - 37.0 g/dL LAB HEMETOLOGY METHOD 05/10/2025 8:14 AM [facility] RDW 13.6 11.0 - 15.0 % LAB HEMETOLOGY METHOD 05/10/2025 8:14 AM [facility] Platelets 209 130 - 400 K/[facility] LAB HEMETOLOGY METHOD 05/10/2025 8:14 AM [facility] MPV 10.8 7.0 - 11.0 FL LAB HEMETOLOGY METHOD 05/10/2025 8:14 AM [facility] NRBC 0.0 <1.0 % LAB HEMETOLOGY METHOD 05/10/2025 8:14 AM [facility] NRBC Absolute 0.00 <0.10 K/[facility] LAB HEMETOLOGY METHOD 05/10/2025 8:14 AM [facility] Neutrophils Relative 49.3 % LAB HEMETOLOGY METHOD 05/10/2025 8:14 AM [facility] Lymphocytes Relative 34.0 % LAB HEMETOLOGY METHOD 05/10/2025 8:14 AM [facility] Monocytes Relative 13.3 % LAB HEMETOLOGY METHOD 05/10/2025 8:14 AM [facility] Eosinophils Relative 2.9 % LAB HEMETOLOGY METHOD 05/10/2025 8:14 AM [facility] Basophils Relative 0.3 % LAB HEMETOLOGY METHOD 05/10/2025 8:14 AM [facility] Immature Granulocytes Relative 0.2 % LAB HEMETOLOGY METHOD 05/10/2025 8:14 AM [facility] Neutrophils Absolute 3.21 1.50 - 7.00 K/mcL LAB HEMETOLOGY METHOD 05/10/2025 8:14 AM [facility] Lymphocytes Absolute 2.22 1.00 - 5.00 K/mcL LAB HEMETOLOGY METHOD 05/10/2025 8:14 AM EDT [facility] Monocytes Absolute 0.87 0.20 - 1.00 K/mcL LAB HEMETOLOGY METHOD 05/10/2025 8:14 AM EDT [facility] Eosinophils Absolute 0.19 0.00 - 0.50 K/mcL LAB HEMETOLOGY METHOD 05/10/2025 8:14 AM EDT [facility] Basophils Absolute 0.02 0.00 - 0.20 K/mcL LAB HEMETOLOGY METHOD 05/10/2025 8:14 AM EDT [facility] Immature Granulocytes Absolute 0.01 0.00 - 0.03 K/mcL LAB HEMETOLOGY METHOD 05/10/2025 8:14 AM EDT [facility] Blood Venous blood specimen / Unknown 05/10/2025 6:30 AM EDT 05/10/2025 8:05 AM EDT us Camron Sabillon MD LAB BLOOD ORDERABLES Final Resul t Performing Organization Address City/[facility]/ZIP Co de Phone Number [facility] [address] [place] [address], [place] [phone] * (ABNORMAL) Thyroid stimulating hormone (05/10/2025 6:30 AM EDT) Only the most recent of2 resultswithin the time period is included. TSH <0.05(L) 0.40 - 4.00 mcIU/mL LAB CHEMISTRY METHOD 05/10/2025 12:26 PM EDT [facility] Blood Venous blood specimen / Unknown 05/10/2025 6:30 AM EDT 05/10/2025 8:05 AM EDT us Camron Sabillon MD LAB BLOOD ORDERABLES Final Resul t Performing Organization Address [facility]/ZIP Co de Phone Number [facility] [address] [place] [address], [place] [phone] * (ABNORMAL) Hepatic function panel (05/10/2025 6:30 AM EDT) Total Protein 6.1 6.0 - 8.0 g/dL LAB CHEMISTRY METHOD 05/10/2025 9:23 AM T [facility] Albumin 3.1(L) 3.2 - 5.0 g/dL LAB CHEMISTRY METHOD 05/10/2025 9:23 AM EDT [facility] Total Bilirubin 0.3 0.0 - 1.4 mg/dL LAB CHEMISTRY METHOD 05/10/2025 9:23 AM [facility] Bilirubin, Direct 0.1 0.0 - 0.3 mg/dL LAB CHEMISTRY METHOD 05/10/2025 9:23 AM [facility] Bilirubin, Indirect 0.2 0.0 - 1.1 mg/dL LAB CHEMISTRY METHOD 05/10/2025 9:23 AM [facility] ALT (SGPT) 22 10 - 60 unit/L LAB CHEMISTRY METHOD 05/10/2025 9:23 AM [facility] AST (SGOT) 21 10 - 42 unit/L LAB CHEMISTRY METHOD 05/10/2025 9:23 AM [facility] Alkaline Phosphatase 97 42 - 121 unit/L LAB CHEMISTRY METHOD 05/10/2025 9:23 AM [facility] Blood Venous blood specimen / Unknown 05/10/2025 6:30 AM EDT 05/10/2025 8:05 AM EDT us Camron Sabillon MD LAB BLOOD ORDERABLES Final Resul t [facility] [address] [place] [address], [place] [phone] * Lavender tube (04/14/2025 7:11 AM EDT) Pathologist [facility] Extra Tube Hold for add-ons. 04/14/2025 9:01 AM EDT [facility] Comment:Auto resulted. Blood Venous blood specimen / Unknown 04/14/2025 7:11 AM EDT 04/14/2025 7:57 AM EDT us Camron Sabillon MD LAB BLOOD ORDERABLES Final Resul t Performing Organization Address City/[facility] Co de Phone Number [facility] [address] [place] [address], [place] [phone] * Thyroxine free (04/14/2025 7:11 AM EDT) Free T4 1.11 0.70 - 1.80 ng/dL LAB CHEMISTRY METHOD 04/14/2025 9:30 AM EDT [facility] Blood Venous blood specimen / Unknown 04/14/2025 7:11 AM EDT 04/14/2025 7:57 AM EDT us Camron Sabillon MD LAB BLOOD ORDERABLES Final Resul t Performing Organization Address [facility] de Phone Number [facility] [address] [place] [address], [place] [phone] * Hemoglobin A1c (04/14/2025 7:11 AM EDT) Hemoglobin A1C 6.4 <6.5 % LAB CHEMISTRY METHOD 04/14/2025 10:20 AM EDT [facility] Mean Bld Glu Estim. 137 mg/dL LAB CHEMISTRY METHOD 04/14/2025 10:20 AM EDT [facility] Blood Venous blood specimen / Unknown 04/14/2025 7:11 AM EDT 04/14/2025 7:57 AM EDT us Camron Sabillon MD LAB BLOOD ORDERABLES Final Resul t Performing Organization Address City/[facility] Co de Phone Number [facility] [address] [place] [address], * (ABNORMAL) Comprehensive metabolic panel (04/14/2025 7:11 AM EDT) Sodium 142 133 - 145 mmol/L LAB CHEMISTRY METHOD 04/14/2025 8:40 AM [facility] Potassium 4.1 3.5 - 5.5 mmol/L LAB CHEMISTRY METHOD 04/14/2025 8:40 AM [facility] Chloride 108 96 - 110 mmol/L LAB CHEMISTRY METHOD 04/14/2025 8:40 AM [facility] CO2 30 21 - 32 mmol/L LAB CHEMISTRY METHOD 04/14/2025 8:40 AM [facility] Anion Gap 4 3 - 11 LAB CHEMISTRY METHOD 04/14/2025 8:40 AM [facility] Glucose 111(H) 70 - 100 mg/dL LAB CHEMISTRY METHOD 04/14/2025 8:40 AM [facility] BUN 15 5 - 25 mg/dL LAB CHEMISTRY METHOD 04/14/2025 8:40 AM [facility] Creatinine 1.04 0.50 - 1.10 mg/dL LAB CHEMISTRY METHOD 04/14/2025 8:40 AM [facility] eGFR 64 >=60 mL/min/1. 73m2 LAB CHEMISTRY METHOD 04/14/2025 8:40 AM [facility] Comment:Calculation based on the Chronic Kidney Disease Epidemiology Collaboration (CKD-EPI) equation refit without adjustment for race. BUN/Creatinine Ratio 14.4 LAB CHEMISTRY METHOD 04/14/2025 8:40 AM [facility] Calcium 9.4 8.5 - 10.5 mg/dL LAB CHEMISTRY METHOD 04/14/2025 8:40 AM [facility] AST (SGOT) 11 10 - 42 unit/L LAB CHEMISTRY METHOD 04/14/2025 8:40 AM EDT [facility] ALT (SGPT) 19 10 - 60 unit/L LAB CHEMISTRY METHOD 04/14/2025 8:40 AM EDT [facility] Alkaline Phosphatase 110 42 - 121 unit/L LAB CHEMISTRY METHOD 04/14/2025 8:40 AM EDT [facility] Total Protein 7.0 6.0 - 8.0 g/dL LAB CHEMISTRY METHOD 04/14/2025 8:40 AM EDT [facility] Albumin 3.4 3.2 - 5.0 g/dL LAB CHEMISTRY METHOD 04/14/2025 8:40 AM EDT [facility] Total Bilirubin 0.5 0.0 - 1.4 mg/dL LAB CHEMISTRY METHOD 04/14/2025 8:40 AM EDT [facility] Blood Venous blood specimen / Unknown 04/14/2025 7:11 AM EDT 04/14/2025 7:57 AM EDT us Camron Sabillon MD LAB BLOOD ORDERABLES Final Resul t [facility] [address] [place] [address], from Last 3 Months Insurance MEDICARE [place]ICAID - [place] Member Subscriber Plan / Payer (Ef fective 2024-Present) Name:Anna Abraham Member ID:[id number] Relation to Subscriber:Self Name:Anna Abraham Subscriber ID:[id number] Payer ID:[id number] Group ID:Not on file Type:Not on file Address: [place] [id number] Care Teams Assistant Housekeeping Manager Relationship Specialty Start Date End Date Camron Sabillon MD [address] [place] [address] Dr [address] [place], [place] PCP - General Internal Medicine 11/26/24
--- OUTSIDE RECORDS SUMMARY | 2025-06-08 14:41 | XMS_ITS | Encounter Summary ---
Author Organization [facility] Address [address] [place] [address] Care Team Providers Care Technical Assoc Name Role Phone Camron Sabillon MD Primary Care Provider [phone] Encounter Details Date Type Department Care Team (Late st Contact Info) Description 10/27/2024 Lab Requisition [facility] [address] [facility] [place] [address] Camron Sabillon MD [address] [place] [address] Dr [address] [place], [place] Type 2 diabetes mellitus without complications (CMS/HCC V24, CMS/HCC V28); Other schizophrenia (CMS/HCC V24, CMS/HCC V28) Social [...] CBC auto differential (10/27/2024 6:37 AM EST) [facility] [place] [facility] WBC 7.2 4.8 - 10.8 K/mcL LAB HEMETOLOGY METHOD 10/27/2024 7:36 AM [facility] RBC 4.00 3.80 - 4.80 M/mcL LAB HEMETOLOGY METHOD 10/27/2024 7:36 AM [facility] Hemoglobin 11.6 11.5 - 16.0 g/dL LAB HEMETOLOGY METHOD 10/27/2024 7:36 AM [facility] Hematocrit 37.3 35.0 - 47.0 % LAB HEMETOLOGY METHOD 10/27/2024 7:36 AM [facility] MCV 92.3 79.0 - 98.0 FL LAB HEMETOLOGY METHOD 10/27/2024 7:36 AM [facility] MCH 28.7 27.0 - 32.0 pcg LAB HEMETOLOGY METHOD 10/27/2024 7:36 AM [facility] MCHC 31.1(L) 32.0 - 37.0 g/dL LAB HEMETOLOGY METHOD 10/27/2024 7:36 AM [facility] RDW 13.8 11.0 - 15.0 % LAB HEMETOLOGY METHOD 10/27/2024 7:36 AM [facility] Platelets 222 130 - 400 K/mcL LAB HEMETOLOGY METHOD 10/27/2024 7:36 AM [facility] MPV 10.6 7.0 - 11.0 FL LAB HEMETOLOGY METHOD 10/27/2024 7:36 AM [facility] NRBC 0.0 <1.0 % LAB HEMETOLOGY METHOD 10/27/2024 7:36 AM [facility] NRBC Absolute 0.00 <0.10 K/mcL LAB HEMETOLOGY METHOD 10/27/2024 7:36 AM [facility] Neutrophils Relative 51.1 % LAB HEMETOLOGY METHOD 10/27/2024 7:36 AM [facility] Lymphocytes Relative 32.4 % LAB HEMETOLOGY METHOD 10/27/2024 7:36 AM [facility] Monocytes Relative 12.6 % LAB HEMETOLOGY METHOD 10/27/2024 7:36 AM [facility] Eosinophils Relative 2.9 % LAB HEMETOLOGY METHOD 10/27/2024 7:36 AM [facility] Basophils Relative 0.7 % LAB HEMETOLOGY METHOD 10/27/2024 7:36 AM [facility] Immature Granulocytes Relative 0.3 % LAB HEMETOLOGY METHOD 10/27/2024 7:36 AM [facility] Neutrophils Absolute 3.65 1.50 - 7.00 K/mcL LAB HEMETOLOGY METHOD 10/27/2024 7:36 AM [facility] Lymphocytes Absolute 2.32 1.00 - 5.00 K/mcL LAB HEMETOLOGY METHOD 10/27/2024 7:36 AM [facility] Monocytes Absolute 0.90 0.20 - 1.00 K/mcL LAB HEMETOLOGY METHOD 10/27/2024 7:36 AM [facility] Eosinophils Absolute 0.21 0.00 - 0.50 K/mcL LAB HEMETOLOGY METHOD 10/27/2024 7:36 AM [facility] Basophils Absolute 0.05 0.00 - 0.20 K/mcL LAB HEMETOLOGY METHOD 10/27/2024 7:36 AM [facility] Immature Granulocytes Absolute 0.02 0.00 - 0.03 K/mcL LAB HEMETOLOGY METHOD 10/27/2024 7:36 AM [facility] Blood Venous blood specimen / Unknown 10/27/2024 6:37 AM EST 10/27/2024 7:14 AM EST us Camron Sabillon MD LAB BLOOD ORDERABLES Final Resul t Performing Organization Address [facility]/ZIP Co de Phone Number [facility] [address] [place] [address], [place] [phone] * Hemoglobin A1c (10/27/2024 6:37 AM EST) Hemoglobin A1C 6.2 <6.5 % LAB CHEMISTRY METHOD 10/27/2024 11:57 AM EST [facility] Mean Bld Glu Estim. 131 mg/dL LAB CHEMISTRY METHOD 10/27/2024 11:57 AM [facility] Blood Venous blood specimen / Unknown 10/27/2024 6:37 AM EST 10/27/2024 7:14 AM EST us Camron Sabillon MD LAB BLOOD ORDERABLES Final Resul t Performing Organization Address [facility]/ZIP Co de Phone Number [facility] [address] [place] [address], [place] [phone] * (ABNORMAL) Comprehensive metabolic panel (10/27/2024 6:37 AM EST) Pathologist [facility] Sodium 140 133 - 145 mmol/L LAB CHEMISTRY METHOD 10/27/2024 9:50 AM EST [facility] Potassium 3.8 3.5 - 5.5 mmol/L LAB CHEMISTRY METHOD 10/27/2024 9:50 AM EST [facility] Chloride 105 96 - 110 mmol/L LAB CHEMISTRY METHOD 10/27/2024 9:50 AM EST [facility] CO2 29 21 - 32 mmol/L LAB CHEMISTRY METHOD 10/27/2024 9:50 AM [facility] Anion Gap 6 3 - 11 LAB CHEMISTRY METHOD 10/27/2024 9:50 AM EST [facility] Glucose 105(H) 70 - 100 mg/dL LAB CHEMISTRY METHOD 10/27/2024 9:50 AM [facility] BUN 14 5 - 25 mg/dL LAB CHEMISTRY METHOD 10/27/2024 9:50 AM [facility] Creatinine 0.92 0.50 - 1.10 mg/dL LAB CHEMISTRY METHOD 10/27/2024 9:50 AM [facility] eGFR 74 >=60 mL/min/1. 73m2 LAB CHEMISTRY METHOD 10/27/2024 9:50 AM [facility] Comment:Calculation based on the Chronic Kidney Disease Epidemiology Collaboration (CKD-EPI) equation refit without adjustment for race. BUN/Creatinine Ratio 15.2 LAB CHEMISTRY METHOD 10/27/2024 9:50 AM [facility] Calcium 8.8 8.5 - 10.5 mg/dL LAB CHEMISTRY METHOD 10/27/2024 9:50 AM [facility] AST (SGOT) 14 10 - 42 unit/L LAB CHEMISTRY METHOD 10/27/2024 9:50 AM [facility] ALT (SGPT) 18 10 - 60 unit/L LAB CHEMISTRY METHOD 10/27/2024 9:50 AM [facility] Alkaline Phosphatase 96 42 - 121 unit/L LAB CHEMISTRY METHOD 10/27/2024 9:50 AM [facility] Total Protein 6.4 6.0 - 8.0 g/dL LAB CHEMISTRY METHOD 10/27/2024 9:50 AM [facility] Albumin 3.1(L) 3.2 - 5.0 g/dL LAB CHEMISTRY METHOD 10/27/2024 9:50 AM [facility] Total Bilirubin 0.3 0.0 - 1.4 mg/dL LAB CHEMISTRY METHOD 10/27/2024 9:50 AM [facility] Blood Venous blood specimen / Unknown 10/27/2024 6:37 AM EST 10/27/2024 7:14 AM EST us Camron Sabillon MD LAB BLOOD ORDERABLES Final Resul t [facility] ([facility]) [facility] [address] [place] [address], documented in this encounter Visit Diagnoses Diagnosis Type 2 diabetes mellitus without complications (CMS/[facility] V24, CMS/[facility] V28) Other schizophrenia (CMS/[facility] V24, [facility] V28) documented in this encounter Care Teams Technical Assoc Relationship Specialty Start Date End Date Camron Sabillon MD [address] [place] [address] Dr [address] [place], [place] PCP - General Internal Medicine 11/26/24 documented as of this encounter
--- OUTSIDE RECORDS SUMMARY | 2025-06-08 14:41 | XMS_ITS | Encounter Summary ---
Author Organization [employer] Address [address] [place] [address] Care Team Providers Care Drum Tender Name Role Phone Camron Sabillon MD Primary Care Provider [phone] Encounter Details Date Type Department Care Team (Late st Contact Info) Description 11/24/2024 Lab Requisition [facility] Lab [address] [place] [address] Camron Sabillon MD [address] [place] [address] Dr [address] [place], [place] Other schizophrenia (CMS/HCC V24, CMS/HCC V28) [...] Routine 11/24/2024 6:47 AM EST Other schizophrenia ([facility]/HCC) documented in this encounter Results * (ABNORMAL) CBC auto differential (11/24/2024 6:47 AM EST) WBC 6.8 4.8 - 10.8 K/mcL LAB HEMETOLOGY METHOD 11/24/2024 7:44 AM EST [facility] LAB RBC 3.90 3.80 - 4.80 M/mcL LAB HEMETOLOGY METHOD 11/24/2024 7:44 AM EST [facility] LAB Hemoglobin 11.3(L) 11.5 - 16.0 g/dL LAB HEMETOLOGY METHOD 11/24/2024 7:44 AM [facility] LAB Hematocrit 35.9 35.0 - 47.0 % LAB HEMETOLOGY METHOD 11/24/2024 7:44 AM [facility] LAB MCV 92.3 79.0 - 98.0 FL LAB HEMETOLOGY METHOD 11/24/2024 7:44 AM [facility] LAB MCH 29.0 27.0 - 32.0 pcg LAB HEMETOLOGY METHOD 11/24/2024 7:44 AM [facility] LAB MCHC 31.5(L) 32.0 - 37.0 g/dL LAB HEMETOLOGY METHOD 11/24/2024 7:44 AM [facility] LAB RDW 14.1 11.0 - 15.0 % LAB HEMETOLOGY METHOD 11/24/2024 7:44 AM [facility] LAB Platelets 234 130 - 400 K/mcL LAB HEMETOLOGY METHOD 11/24/2024 7:44 AM [facility] LAB MPV 10.8 7.0 - 11.0 FL LAB HEMETOLOGY METHOD 11/24/2024 7:44 AM [facility] LAB NRBC 0.0 <1.0 % LAB HEMETOLOGY METHOD 11/24/2024 7:44 AM [facility] LAB NRBC Absolute 0.00 <0.10 K/mcL LAB HEMETOLOGY METHOD 11/24/2024 7:44 AM [facility] LAB Neutrophils Relative 45.3 % LAB HEMETOLOGY METHOD 11/24/2024 7:44 AM [facility] LAB Lymphocytes Relative 39.0 % LAB HEMETOLOGY METHOD 11/24/2024 7:44 AM [facility] LAB Monocytes Relative 11.5 % LAB HEMETOLOGY METHOD 11/24/2024 7:44 AM [facility] LAB Eosinophils Relative 3.5 % LAB HEMETOLOGY METHOD 11/24/2024 7:44 AM EST [facility] LAB Basophils Relative 0.6 % LAB HEMETOLOGY METHOD 11/24/2024 7:44 AM [facility] LAB Immature Granulocytes Relative 0.1 % LAB HEMETOLOGY METHOD 11/24/2024 7:44 AM [facility] LAB Neutrophils Absolute 3.09 1.50 - 7.00 K/mcL LAB HEMETOLOGY METHOD 11/24/2024 7:44 AM EST [facility] LAB Lymphocytes Absolute 2.67 1.00 - 5.00 K/mcL LAB HEMETOLOGY METHOD 11/24/2024 7:44 AM [facility] LAB Monocytes Absolute 0.79 0.20 - 1.00 K/mcL LAB HEMETOLOGY METHOD 11/24/2024 7:44 AM [facility] LAB Eosinophils Absolute 0.24 0.00 - 0.50 K/mcL LAB HEMETOLOGY METHOD 11/24/2024 7:44 AM [facility] LAB Basophils Absolute 0.04 0.00 - 0.20 K/mcL LAB HEMETOLOGY METHOD 11/24/2024 7:44 AM [facility] LAB Immature Granulocytes Absolute 0.01 0.00 - 0.03 K/mcL LAB HEMETOLOGY METHOD 11/24/2024 7:44 AM [facility] LAB Blood Venous blood specimen / Unknown 11/24/2024 6:47 AM EST 11/24/2024 7:20 AM EST us Camron Sabillon MD LAB BLOOD ORDERABLES Final Resul t [facility] LAB [address] [place] [address], documented in this encounter Visit Diagnoses Diagnosis Other schizophrenia (CMS/HCC V24, CMS/HCC V28) documented in this encounter Care Teams Drum Tender Relationship Specialty Start Date End Date Camron Sabillon MD [address] [place] [address] Dr [address] BRIDGET Leone PCP - General Internal Medicine 11/26/24 documented as of this encounter
--- OUTSIDE RECORDS SUMMARY | 2025-06-08 14:41 | XMS_ITS | Encounter Summary ---
Author Organization [employer] Address [address] [place] [address] Care Team Providers Care Exchange Consultant Name Role Phone Camron Sabillon MD Primary Care Provider [phone] Encounter Details Date Type Department Care Team (Late st Contact Info) Description 08/10/2024 Lab Requisition [facility] - Main Lab [address] [place] [address] Camron Sabillon MD [address] [place] [address] Dr [address] [place], [place] Other schizophrenia (CMS/HCC V24, CMS/HCC V28) [...] AM EST) WBC 5.7 4.8 - 10.8 K/[facility] LAB HEMETOLOGY METHOD 08/10/2024 7:31 AM EST [facility] LAB RBC 4.00 3.80 - 4.80 M/[facility] LAB HEMETOLOGY METHOD 08/10/2024 7:31 AM [facility] LAB Hemoglobin 11.4(L) 11.5 - 16.0 g/dL LAB HEMETOLOGY METHOD 08/10/2024 7:31 AM [facility] LAB Hematocrit 36.6 35.0 - 47.0 % LAB HEMETOLOGY METHOD 08/10/2024 7:31 AM [facility] LAB MCV 90.8 79.0 - 98.0 FL LAB HEMETOLOGY METHOD 08/10/2024 7:31 AM [facility] LAB MCH 28.3 27.0 - 32.0 pcg LAB HEMETOLOGY METHOD 08/10/2024 7:31 AM [facility] LAB MCHC 31.1(L) 32.0 - 37.0 g/dL LAB HEMETOLOGY METHOD 08/10/2024 7:31 AM [facility] LAB RDW 14.1 11.0 - 15.0 % LAB HEMETOLOGY METHOD 08/10/2024 7:31 AM [facility] LAB Platelets 215 130 - 400 K/mcL LAB HEMETOLOGY METHOD 08/10/2024 7:31 AM [facility] LAB MPV 10.8 7.0 - 11.0 FL LAB HEMETOLOGY METHOD 08/10/2024 7:31 AM [facility] LAB NRBC 0.0 <1.0 % LAB HEMETOLOGY METHOD 08/10/2024 7:31 AM [facility] LAB NRBC Absolute 0.00 <0.10 K/mcL LAB HEMETOLOGY METHOD 08/10/2024 7:31 AM [facility] LAB Neutrophils Relative 57.7 % LAB HEMETOLOGY METHOD 08/10/2024 7:31 AM [facility] LAB Lymphocytes Relative 26.8 % LAB HEMETOLOGY METHOD 08/10/2024 7:31 AM [facility] LAB Monocytes Relative 14.0 % LAB HEMETOLOGY METHOD 08/10/2024 7:31 AM [facility] LAB Eosinophils Relative 0.7 % LAB HEMETOLOGY METHOD 08/10/2024 7:31 AM [facility] LAB Basophils Relative 0.4 % LAB HEMETOLOGY METHOD 08/10/2024 7:31 AM [facility] LAB Immature Granulocytes Relative 0.4 % LAB HEMETOLOGY METHOD 08/10/2024 7:31 AM [facility] LAB Neutrophils Absolute 3.29 1.50 - 7.00 K/mcL LAB HEMETOLOGY METHOD 08/10/2024 7:31 AM [facility] LAB Lymphocytes Absolute 1.53 1.00 - 5.00 K/mcL LAB HEMETOLOGY METHOD 08/10/2024 7:31 AM [facility] LAB Monocytes Absolute 0.80 0.20 - 1.00 K/mcL LAB HEMETOLOGY METHOD 08/10/2024 7:31 AM [facility] LAB Eosinophils Absolute 0.04 0.00 - 0.50 K/mcL LAB HEMETOLOGY METHOD 08/10/2024 7:31 AM [facility] LAB Basophils Absolute 0.02 0.00 - 0.20 K/mcL LAB HEMETOLOGY METHOD 08/10/2024 7:31 AM [facility] LAB Immature Granulocytes Absolute 0.02 0.00 - 0.03 K/mcL LAB HEMETOLOGY METHOD 08/10/2024 7:31 AM [facility] LAB Blood Venous blood specimen / Unknown 08/10/2024 5:46 AM EST 08/10/2024 7:05 AM EST us Camron Sabillon MD LAB BLOOD ORDERABLES Final Resul t [facility] LAB [address] [place] [address], * (ABNORMAL) Hepatic function panel (08/10/2024 5:46 AM EST) Total Protein 6.2 6.0 - 8.0 g/dL LAB CHEMISTRY METHOD 08/10/2024 8:06 AM [facility] LAB Albumin 3.1(L) 3.2 - 5.0 g/dL LAB CHEMISTRY METHOD 08/10/2024 8:06 AM [facility] LAB Total Bilirubin 0.4 0.0 - 1.4 mg/dL LAB CHEMISTRY METHOD 08/10/2024 8:06 AM [facility] LAB Bilirubin, Direct 0.1 0.0 - 0.3 mg/dL LAB CHEMISTRY METHOD 08/10/2024 8:06 AM [facility] LAB Bilirubin, Indirect 0.3 0.0 - 1.1 mg/dL LAB CHEMISTRY METHOD 08/10/2024 8:06 AM [facility] LAB ALT (SGPT) 17 10 - 60 unit/L LAB CHEMISTRY METHOD 08/10/2024 8:06 AM [facility] LAB AST (SGOT) 15 10 - 42 unit/L LAB CHEMISTRY METHOD 08/10/2024 8:06 AM [facility] LAB Alkaline Phosphatase 107 42 - 121 unit/L LAB CHEMISTRY METHOD 08/10/2024 8:06 AM [facility] LAB Blood Venous blood specimen / Unknown 08/10/2024 5:46 AM EST 08/10/2024 7:05 AM EST us Camron Sabillon MD LAB BLOOD ORDERABLES Final Resul t [facility] [address] [place] [address], [place] [phone] documented in this encounter Visit Diagnoses Diagnosis Other schizophrenia (CMS/HCC V24, CMS/HCC V28) documented in this encounter Care Teams Exchange Consultant Relationship Specialty Start Date End Date Camron Sabillon MD [address] [place] [address] Dr [address] BRIDGET Leone PCP - General Internal Medicine 11/26/24 documented as of this encounter
--- OUTSIDE RECORDS SUMMARY | 2025-06-08 14:41 | XMS_ITS | Encounter Summary ---
Author Organization [employer] Address [address] [place] [address] Care Team Providers Care Safety Assistant Name Role Phone Camron Sabillon MD Primary Care Provider Encounter Details Date Type Department Care Team (Late st Contact Info) Description 05/10/[address] [facility] - Main Lab [address] [facility] [place] [address] Camron Sabillon MD [address] [place] [address] Dr [address] [place], [place] Other schizophrenia (CMS/HCC V24, CMS/HCC V28) [...] Procedure Name Priority Date/Time Associated Diagnosis Comments LIPID PANEL WITH REFLEX TO DIRECT LDL Routine 05/10/2025 6:30 AM EDT Other schizophrenia (CMS/HCC V24, CMS/HCC V28) CBC WITH AUTO DIFFERENTIAL Routine 05/10/2025 6:30 AM EDT Other schizophrenia (CMS/HCC V24, CMS/HCC V28) CBC AND DIFFERENTIAL Routine 05/10/2025 6:30 AM EDT Other schizophrenia (CMS/HCC V24, CMS/HCC V28) THYROID STIMULATING HORMONE Routine 05/10/2025 6:30 AM EDT Other schizophrenia (CMS/HCC V24, CMS/HCC V28) HEPATIC FUNCTION PANEL Routine 05/10/2025 6:30 AM EDT Other schizophrenia (CMS/HCC V24, CMS/HCC V28) documented in this encounter Results * (ABNORMAL) CBC auto differential (05/10/2025 6:30 AM EDT) [facility] Signature WBC 6.5 4.8 - 10.8 K/mcL LAB HEMETOLOGY METHOD 05/10/2025 8:14 AM [facility] LAB RBC 3.90 3.80 - 4.80 M/mcL LAB HEMETOLOGY METHOD 05/10/2025 8:[address] [facility] LAB Hemoglobin 11.2(L) 11.5 - 16.0 g/dL LAB HEMETOLOGY METHOD 05/10/2025 8:14 AM [facility] LAB Hematocrit 35.7 35.0 - 47.0 % LAB HEMETOLOGY METHOD 05/10/2025 8:14 AM [facility] LAB MCV 92.2 79.0 - 98.0 FL LAB HEMETOLOGY METHOD 05/10/2025 8:14 AM [facility] LAB MCH 28.9 27.0 - 32.0 pcg LAB HEMETOLOGY METHOD 05/10/2025 8:14 AM [facility] LAB MCHC 31.4(L) 32.0 - 37.0 g/dL LAB HEMETOLOGY METHOD 05/10/2025 8:14 AM [facility] LAB RDW 13.6 11.0 - 15.0 % LAB HEMETOLOGY METHOD 05/10/2025 8:14 AM [facility] LAB Platelets 209 130 - 400 K/mcL LAB HEMETOLOGY METHOD 05/10/2025 8:14 AM [facility] LAB MPV 10.8 7.0 - 11.0 FL LAB HEMETOLOGY METHOD 05/10/2025 8:14 AM [facility] LAB NRBC 0.0 <1.0 % LAB HEMETOLOGY METHOD 05/10/2025 8:14 AM [facility] LAB NRBC Absolute 0.00 <0.10 K/mcL LAB HEMETOLOGY METHOD 05/10/2025 8:14 AM [facility] LAB Neutrophils Relative 49.3 % LAB HEMETOLOGY METHOD 05/10/2025 8:14 AM [facility] LAB Lymphocytes Relative 34.0 % LAB HEMETOLOGY METHOD 05/10/2025 8:14 AM [facility] LAB Monocytes Relative 13.3 % LAB HEMETOLOGY METHOD 05/10/2025 8:14 AM [facility] LAB Eosinophils Relative 2.9 % LAB HEMETOLOGY METHOD 05/10/2025 8:14 AM [facility] LAB Basophils Relative 0.3 % LAB HEMETOLOGY METHOD 05/10/2025 8:14 AM [facility] LAB Immature Granulocytes Relative 0.2 % LAB HEMETOLOGY METHOD 05/10/2025 8:14 AM [facility] LAB Neutrophils Absolute 3.21 1.50 - 7.00 K/mcL LAB HEMETOLOGY METHOD 05/10/2025 8:14 AM [facility] LAB Lymphocytes Absolute 2.22 1.00 - 5.00 K/mcL LAB HEMETOLOGY METHOD 05/10/2025 8:14 AM [facility] LAB Monocytes Absolute 0.87 0.20 - 1.00 K/mcL LAB HEMETOLOGY METHOD 05/10/2025 8:14 AM [facility] LAB Eosinophils Absolute 0.19 0.00 - 0.50 K/mcL LAB HEMETOLOGY METHOD 05/10/2025 8:14 AM [facility] LAB Basophils Absolute 0.02 0.00 - 0.20 K/mcL LAB HEMETOLOGY METHOD 05/10/2025 8:14 AM [facility] LAB Immature Granulocytes Absolute 0.01 0.00 - 0.03 K/mcL LAB HEMETOLOGY METHOD 05/10/2025 8:[address] [facility] LAB Blood Venous blood specimen / Unknown 05/10/2025 6:30 AM EDT 05/10/2025 8:05 AM EDT us Camron Sabillon MD LAB BLOOD ORDERABLES Final Resul t Performing Organization Address [facility]/ZIP Co de Phone Number [facility] LAB [address] [place] [address], [place] [phone] * (ABNORMAL) Thyroid stimulating hormone (05/10/2025 6:30 AM EDT) Pathologist [facility] TSH <0.05(L) 0.40 - 4.00 mcIU/mL LAB CHEMISTRY METHOD 05/10/2025 12:[address] [facility] LAB Blood Venous blood specimen / Unknown 05/10/2025 6:30 AM EDT 05/10/2025 8:05 AM EDT us Camron Sabillon MD LAB BLOOD ORDERABLES Final Resul t Performing Organization Address [facility] de Phone Number [facility] [address] [place] [address], [place] [phone] * (ABNORMAL) Hepatic function panel (05/10/2025 6:30 AM EDT) Total Protein 6.1 6.0 - 8.0 g/dL LAB CHEMISTRY METHOD 05/10/2025 9:[address] [facility] Albumin 3.1(L) 3.2 - 5.0 g/dL LAB CHEMISTRY METHOD 05/10/2025 9:[address] [facility] Total Bilirubin 0.3 0.0 - 1.4 mg/dL LAB CHEMISTRY METHOD 05/10/2025 9:[address] [facility] Bilirubin, Direct 0.1 0.0 - 0.3 mg/dL LAB CHEMISTRY METHOD 05/10/2025 9:23 AM [facility] LAB Bilirubin, Indirect 0.2 0.0 - 1.1 mg/dL LAB CHEMISTRY METHOD 05/10/2025 9:23 AM [facility] LAB ALT (SGPT) 22 10 - 60 unit/L LAB CHEMISTRY METHOD 05/10/2025 9:23 AM [facility] LAB AST (SGOT) 21 10 - 42 unit/L LAB CHEMISTRY METHOD 05/10/2025 9:23 AM [facility] LAB Alkaline Phosphatase 97 42 - 121 unit/L LAB CHEMISTRY METHOD 05/10/2025 9:23 AM [facility] LAB Blood Venous blood specimen / Unknown 05/10/2025 6:30 AM EDT 05/10/2025 8:05 AM EDT us Camron Sabillon MD LAB BLOOD ORDERABLES Final Resul t [facility] [address] [place] [address], * (ABNORMAL) Lipid panel with reflex to direct LDL (05/10/2025 6:30 AM EDT) Cholesterol 105 0 - 200 mg/dL LAB CHEMISTRY METHOD 05/10/2025 9:22 AM [facility] Triglycerides 124 0 - 150 mg/dL LAB CHEMISTRY METHOD 05/10/2025 9:22 AM [facility] HDL 36(L) >=40 mg/dL LAB CHEMISTRY METHOD 05/10/2025 9:22 AM [facility] LDL Calculated 44 0 - 100 mg/dL LAB CHEMISTRY METHOD 05/10/2025 9:22 AM [facility] LAB Comment:Estimated LDL Calcul ated using equation: Total cholesterol - HDL cholesterol - (Triglycerides/5) VLDL Cholesterol Tanner 24.8 mg/dL LAB CHEMISTRY METHOD 05/10/2025 9:[address] [facility] Non HDL Chol. (LDL+VLDL) 69 <145 mg/dL LAB CHEMISTRY METHOD 05/10/2025 9:[address] [facility] Chol/HDL Ratio 2.9 0.0 - 4.4 LAB CHEMISTRY METHOD 05/10/2025 9:[address] [facility] LAB Blood Venous blood specimen / Unknown 05/10/2025 6:30 AM EDT 05/10/2025 8:05 AM EDT us Camron Sbaillon MD LAB BLOOD ORDERABLES Final Resul t [facility] [address] [place] [address], documented in this encounter Visit Diagnoses Diagnosis Other schizophrenia (CMS/HCC V24, CMS/HCC V28) documented in this encounter Care Teams Safety Assistant Relationship Specialty Start Date End Date Camron Sabillon MD [address] [place], [place] PCP - General Internal Medicine 11/26/24 documented as of this encounter
--- OUTSIDE RECORDS SUMMARY | 2025-06-08 14:41 | XMS_ITS | Encounter Summary ---
Author Organization [employer] Address [address] [place] [address] Care Team Providers Care Wire Photo Operator News Name Role Phone Camron Sabillon MD Primary Care Provider Encounter Details Date Type Department Care Team (Late st Contact Info) Description 09/30/2024 Lab Requisition [facility] - Main Lab [address] [facility] [place] [address] Camron Sabillon MD [address] [place] [address] [address] [place], [place] Hyperlipidemia, unspecified; Other supervisor long goods (current) drug therapy; Other schizophrenia (CMS/HCC V24, CMS/HCC V28) Social [...] 09/30/2024 6:56 AM EST Hyperlipidemia, unspecified Other alf (current) drug therapy Other schizophrenia (CMS/HCC) CBC AND DIFFERENTIAL Routine 09/30/2024 6:56 AM EST Hyperlipidemia, unspecified Other alf (current) drug therapy Other schizophrenia (CMS/HCC) THYROID STIMULATING HORMONE Routine 09/30/2024 6:56 AM EST Hyperlipidemia, unspecified Other supervisor long goods (current) drug therapy Other schizophrenia (CMS/HCC) THYROXINE FREE Routine 09/30/2024 6:56 AM EST Hyperlipidemia, unspecified Other alf (current) drug therapy Other schizophrenia (CMS/HCC) HEPATIC FUNCTION PANEL Routine 09/30/2024 6:56 AM EST Hyperlipidemia, unspecified Other alf (current) drug therapy Other schizophrenia (CMS/HCC) documented in this encounter Results * (ABNORMAL) CBC auto differential (09/30/2024 6:56 AM EST) [facility] WBC 6.2 4.8 - 10.8 K/mcL LAB HEMETOLOGY METHOD 09/30/2024 8:36 AM [facility] LAB RBC 4.10 3.80 - 4.80 M/mcL LAB HEMETOLOGY METHOD 09/30/2024 8:36 AM [facility] LAB Hemoglobin 11.6 11.5 - 16.0 g/dL LAB HEMETOLOGY METHOD 09/30/2024 8:36 AM [facility] LAB Hematocrit 37.0 35.0 - 47.0 % LAB HEMETOLOGY METHOD 09/30/2024 8:36 AM [facility] LAB MCV 90.9 79.0 - 98.0 FL LAB HEMETOLOGY METHOD 09/30/2024 8:36 AM [facility] LAB MCH 28.5 27.0 - 32.0 pcg LAB HEMETOLOGY METHOD 09/30/2024 8:36 AM [facility] LAB MCHC 31.4(L) 32.0 - 37.0 g/dL LAB HEMETOLOGY METHOD 09/30/2024 8:36 AM [facility] LAB RDW 13.8 11.0 - 15.0 % LAB HEMETOLOGY METHOD 09/30/2024 8:36 AM [facility] LAB Platelets 237 130 - 400 K/mcL LAB HEMETOLOGY METHOD 09/30/2024 8:36 AM [facility] LAB MPV 10.4 7.0 - 11.0 FL LAB HEMETOLOGY METHOD 09/30/2024 8:36 AM [facility] LAB NRBC 0.0 <1.0 % LAB HEMETOLOGY METHOD 09/30/2024 8:36 AM [facility] LAB NRBC Absolute 0.00 <0.10 K/mcL LAB HEMETOLOGY METHOD 09/30/2024 8:36 AM [facility] Neutrophils Relative 48.4 % LAB HEMETOLOGY METHOD 09/30/2024 8:36 AM [facility] LAB Lymphocytes Relative 36.7 % LAB HEMETOLOGY METHOD 09/30/2024 8:36 AM [facility] Monocytes Relative 11.4 % LAB HEMETOLOGY METHOD 09/30/2024 8:36 AM [facility] Eosinophils Relative 2.7 % LAB HEMETOLOGY METHOD 09/30/2024 8:36 AM [facility] Basophils Relative 0.6 % LAB HEMETOLOGY METHOD 09/30/2024 8:36 AM [facility] Immature Granulocytes Relative 0.2 % LAB HEMETOLOGY METHOD 09/30/2024 8:36 AM [facility] Neutrophils Absolute 3.00 1.50 - 7.00 K/mcL LAB HEMETOLOGY METHOD 09/30/2024 8:36 AM [facility] Lymphocytes Absolute 2.28 1.00 - 5.00 K/mcL LAB HEMETOLOGY METHOD 09/30/2024 8:36 AM [facility] Monocytes Absolute 0.71 0.20 - 1.00 K/mcL LAB HEMETOLOGY METHOD 09/30/2024 8:36 AM [facility] Eosinophils Absolute 0.17 0.00 - 0.50 K/mcL LAB HEMETOLOGY METHOD 09/30/2024 8:36 AM [facility] Basophils Absolute 0.04 0.00 - 0.20 K/mcL LAB HEMETOLOGY METHOD 09/30/2024 8:36 AM [facility] Immature Granulocytes Absolute 0.01 0.00 - 0.03 K/mcL LAB HEMETOLOGY METHOD 09/30/2024 8:36 AM EST [facility] Blood Venous blood specimen / Unknown 09/30/2024 6:56 AM EST 09/30/2024 7:32 AM EST us Camron Sabillon MD LAB BLOOD ORDERABLES Final Resul t Performing Organization Address City/[facility]/ZIP Co de Phone Number [facility] [address] [place] [address], [place] [phone] * Thyroxine free (09/30/2024 6:56 AM EST) Free T4 1.03 0.70 - 1.80 ng/dL LAB CHEMISTRY METHOD 09/30/2024 8:56 AM EST [facility] Blood Venous blood specimen / Unknown 09/30/2024 6:56 AM EST 09/30/2024 7:32 AM EST us Camron Sabillon MD LAB BLOOD ORDERABLES Final Resul t Performing Organization Address [facility]/ZIP Co de Phone Number [facility] [address] [place] [address], [place] [phone] * Thyroid stimulating hormone (09/30/2024 6:56 AM EST) TSH 1.18 0.40 - 4.00 mcIU/mL LAB CHEMISTRY METHOD 09/30/2024 8:56 AM EST [facility] Blood Venous blood specimen / Unknown 09/30/2024 6:56 AM EST 09/30/2024 7:32 AM EST us Camron Sabillon MD LAB BLOOD ORDERABLES Final Resul t Performing Organization Address City/[facility]/ZIP Co de Phone Number [facility] [address] [place] [address], [place] [phone] * Hepatic function panel (09/30/2024 6:56 AM EST) Total Protein 6.3 6.0 - 8.0 g/dL LAB CHEMISTRY METHOD 09/30/2024 12:36 PM [facility] Albumin 3.2 3.2 - 5.0 g/dL LAB CHEMISTRY METHOD 09/30/2024 12:36 PM EST [facility] Total Bilirubin 0.4 0.0 - 1.4 mg/dL LAB CHEMISTRY METHOD 09/30/2024 12:36 PM [facility] Bilirubin, Direct <0.1 0.0 - [...] Resul t [facility] [address] [place] [address], documented in this encounter Visit Diagnoses Diagnosis Hyperlipidemia, unspecified Other alf (current) drug therapy Other schizophrenia (CMS/HCC V24, CMS/HCC V28) documented in this encounter Care Teams Wire Photo Operator News Relationship Specialty Start Date End Date Camron Sabillon MD [address] [place] [address] Dr Surinder Leone [place] PCP - General Internal Medicine 11/26/24 documented as of this encounter
--- OUTSIDE RECORDS SUMMARY | 2025-06-08 14:41 | XMS_ITS | Encounter Summary ---
Author Organization [employer] Address [address] [place] [address] Care Team Providers Care Plastic Parts Designer Name Role Phone Camron Sabillon MD Primary Care Provider [phone] Encounter Details Date Type Department Care Team (Late st Contact Info) Description 09/01/2024 Lab Requisition [facility] Lab [address] [place] [address] Camron Sabillon MD [address] [place] [address] [address] [place], [place] Other schizophrenia (CMS/HCC V24, CMS/HCC V28) [...] AM EST) WBC 6.7 4.8 - 10.8 K/mcL LAB HEMETOLOGY METHOD 09/01/2024 8:06 AM EST [facility] LAB RBC 3.80 3.80 - 4.80 M/mcL LAB HEMETOLOGY METHOD 09/01/2024 8:06 AM EST [facility] LAB Hemoglobin 11.0(L) 11.5 - 16.0 g/dL LAB HEMETOLOGY METHOD 09/01/2024 8:06 AM [facility] LAB Hematocrit 34.8(L) 35.0 - 47.0 % LAB HEMETOLOGY METHOD 09/01/2024 8:06 AM [facility] LAB MCV 92.1 79.0 - 98.0 FL LAB HEMETOLOGY METHOD 09/01/2024 8:06 AM [facility] LAB MCH 29.1 27.0 - 32.0 pcg LAB HEMETOLOGY METHOD 09/01/2024 8:06 AM [facility] LAB MCHC 31.6(L) 32.0 - 37.0 g/dL LAB HEMETOLOGY METHOD 09/01/2024 8:06 AM [facility] LAB RDW 13.9 11.0 - 15.0 % LAB HEMETOLOGY METHOD 09/01/2024 8:06 AM [facility] LAB Platelets 216 130 - 400 K/mcL LAB HEMETOLOGY METHOD 09/01/2024 8:06 AM [facility] LAB MPV 10.8 7.0 - 11.0 FL LAB HEMETOLOGY METHOD 09/01/2024 8:06 AM [facility] LAB NRBC 0.0 <1.0 % LAB HEMETOLOGY METHOD 09/01/2024 8:06 AM [facility] LAB NRBC Absolute 0.00 <0.10 K/mcL LAB HEMETOLOGY METHOD 09/01/2024 8:06 AM [facility] LAB Neutrophils Relative 50.7 % LAB HEMETOLOGY METHOD 09/01/2024 8:06 AM [facility] LAB Lymphocytes Relative 35.5 % LAB HEMETOLOGY METHOD 09/01/2024 8:06 AM [facility] LAB Monocytes Relative 10.6 % LAB HEMETOLOGY METHOD 09/01/2024 8:06 AM [facility] LAB Eosinophils Relative 2.5 % LAB HEMETOLOGY METHOD 09/01/2024 8:06 AM [facility] LAB Basophils Relative 0.4 % LAB HEMETOLOGY METHOD 09/01/2024 8:06 AM [facility] LAB Immature Granulocytes Relative 0.3 % LAB HEMETOLOGY METHOD 09/01/2024 8:06 AM [facility] LAB Neutrophils Absolute 3.38 1.50 - 7.00 K/mcL LAB HEMETOLOGY METHOD 09/01/2024 8:06 AM [facility] LAB Lymphocytes Absolute 2.37 1.00 - 5.00 K/mcL LAB HEMETOLOGY METHOD 09/01/2024 8:06 AM [facility] LAB Monocytes Absolute 0.71 0.20 - 1.00 K/mcL LAB HEMETOLOGY METHOD 09/01/2024 8:06 AM [facility] LAB Eosinophils Absolute 0.17 0.00 - 0.50 K/mcL LAB HEMETOLOGY METHOD 09/01/2024 8:06 AM [facility] LAB Basophils Absolute 0.03 0.00 - 0.20 K/mcL LAB HEMETOLOGY METHOD 09/01/2024 8:06 AM [facility] LAB Immature Granulocytes Absolute 0.02 0.00 - 0.03 K/mcL LAB HEMETOLOGY METHOD 09/01/2024 8:06 AM [facility] LAB Blood Venous blood specimen / Unknown 09/01/2024 6:48 AM EST 09/01/2024 7:37 AM EST us Camron Sabillon MD LAB BLOOD ORDERABLES Final Resul t [facility] LAB [address] [place] [address], documented in this encounter Visit Diagnoses Diagnosis Other schizophrenia (CMS/HCC V24, CMS/HCC V28) documented in this encounter Care Teams Plastic Parts Designer Relationship Specialty Start Date End Date Camron Sabillon MD [address] [place] [address] Dr [address] BRIDGET Leone PCP - General Internal Medicine 11/26/24 documented as of this encounter
--- OUTSIDE RECORDS SUMMARY | 2025-06-08 14:41 | XMS_ITS | Encounter Summary ---
Author Organization [facility] Address [address] [place] [address] Care Team Providers Care Photography Assistant Name Role Phone Camron Sabillon MD Primary Care Provider [phone] Encounter Details Date Type Department Care Team (Late st Contact Info) Description 04/14/2025 Lab Requisition [facility] - Main Lab 299 [facility] [place] [address] Camron Sabillon MD [address] [place] [address] Dr [address] [place], [place] Other schizophrenia (CMS/HCC V24, CMS/HCC V28); Hypo-osmolality and hyponatremia; Hypothyroidism, unspecified; Type 2 diabetes mellitus without complications (CMS/HCC V24, CMS/HCC V28) Social History Tobacco [...] Diagnosis Comments CBC WITH AUTO DIFFERENTIAL Routine 04/14/2025 7:11 AM EDT Other schizophrenia (CMS/HCC V24, CMS/HCC V28) Hypo-osmolality and hyponatremia Hypothyroidism, unspecified Type 2 diabetes mellitus without complications (CMS/HCC V24, CMS/HCC V28) LAVENDER - EDTA [...] mellitus without complications (CMS/HCC V24, CMS/HCC V28) documented in this encounter Results * Lavender tube (04/14/2025 7:11 AM EDT) Extra Tube Hold for add-ons. 04/14/2025 9:01 AM EDT [facility] LAB Comment:Auto resulted. Blood Venous blood specimen / Unknown 04/14/2025 7:11 AM EDT 04/14/2025 7:57 AM EDT us Camron Sabillon MD LAB BLOOD ORDERABLES Final Resul t [facility] LAB [address] [place] [address], [place] [phone] * (ABNORMAL) CBC auto differential (04/14/2025 7:11 AM EDT) [facility] Signature WBC 8.4 4.8 - 10.8 K/mcL LAB HEMETOLOGY METHOD 04/14/2025 8:07 AM [facility] LAB RBC 4.00 3.80 - 4.80 M/mcL LAB HEMETOLOGY METHOD 04/14[facility]25 8[facility] Hemoglobin 11.6 11.5 - 16.0 g/dL LAB HEMETOLOGY METHOD 04/14/2025 8:07 AM [facility] LAB Hematocrit 37.1 35.0 - 47.0 % LAB HEMETOLOGY METHOD 04/14/2025 8:07 AM [facility] LAB MCV 92.8 79.0 - 98.0 FL LAB HEMETOLOGY METHOD 04/14/2025 8:07 AM [facility] LAB MCH 29.0 27.0 - 32.0 pcg LAB HEMETOLOGY METHOD 04/14/2025 8:07 AM [facility] LAB MCHC 31.3(L) 32.0 - 37.0 g/dL LAB HEMETOLOGY METHOD 04/14/2025 8:07 AM [facility] LAB RDW 14.2 11.0 - 15.0 % LAB HEMETOLOGY METHOD 04/14/2025 8:07 AM [facility] LAB Platelets 237 130 - 400 K/mcL LAB HEMETOLOGY METHOD 04/14/2025 8:07 AM [facility] LAB MPV 10.9 7.0 - 11.0 FL LAB HEMETOLOGY METHOD 04/14/2025 8:07 AM [facility] LAB NRBC 0.0 <1.0 % LAB HEMETOLOGY METHOD [facility]/14[facility]25 8:[facility] NRBC Absolute 0.00 <0.10 K/mcL LAB HEMETOLOGY METHOD 04/14/2025 8:07 AM [facility] Neutrophils Relative 55.0 % LAB HEMETOLOGY METHOD 04/14/2025 8:07 AM [facility] Lymphocytes Relative 30.8 % LAB HEMETOLOGY METHOD 04/14/2025 8:07 AM [facility] Monocytes Relative 10.7 % LAB HEMETOLOGY METHOD 04/14/2025 8:07 AM [facility] Eosinophils Relative 2.6 % LAB HEMETOLOGY METHOD 04/14/2025 8:07 AM [facility] Basophils Relative 0.5 % LAB HEMETOLOGY METHOD 04/14/2025 8:07 AM [facility] LAB Immature Granulocytes Relative 0.4 % LAB HEMETOLOGY METHOD 04/14/2025 8:07 AM [facility] LAB Neutrophils Absolute 4.62 1.50 - 7.00 K/mcL LAB HEMETOLOGY METHOD 04/14/2025 8:07 AM [facility] Lymphocytes Absolute 2.58 1.00 - 5.00 K/mcL LAB HEMETOLOGY METHOD 04/14/2025 8:07 AM [facility] Monocytes Absolute 0.90 0.20 - 1.00 K/mcL LAB HEMETOLOGY METHOD 04/14/2025 8:07 AM [facility] Eosinophils Absolute 0.22 0.00 - 0.50 K/mcL LAB HEMETOLOGY METHOD 04/14/2025 8:07 AM [facility] Basophils Absolute 0.04 0.00 - 0.20 K/mcL LAB HEMETOLOGY METHOD 04/14/2025 8:07 AM [facility] LAB Immature Granulocytes Absolute 0.03 0.00 - 0.03 K/mcL LAB HEMETOLOGY METHOD 04/14/2025 8:07 AM EDT [facility] Blood Venous blood specimen / Unknown 04/14/2025 7:11 AM EDT 04/14/2025 7:57 AM EDT us Camron Sabillon MD LAB BLOOD ORDERABLES Final Resul t Performing Organization Address City/[facility] Co de Phone Number [facility] LAB [address] [place] [address], [place] [phone] * Hemoglobin A1c (04/14/2025 7:11 AM EDT) Hemoglobin A1C 6.4 <6.5 % LAB CHEMISTRY METHOD 04/14/2025 10:20 AM EDT [facility] Mean Bld Glu Estim. 137 mg/dL LAB CHEMISTRY METHOD 04/14/2025 10:20 AM EDT [facility] Blood Venous blood specimen / Unknown 04/14/2025 7:11 AM EDT 04/14/2025 7:57 AM EDT us Camron Sabillon MD LAB BLOOD ORDERABLES Final Resul t Performing Organization Address [facility] de Phone Number [facility] [address] [place] [address], [place] [phone] * Thyroxine free (04/14/2025 7:11 AM EDT) Free T4 1.11 0.70 - 1.80 ng/dL LAB CHEMISTRY METHOD 04/14/2025 9:30 AM EDT [facility] Blood Venous blood specimen / Unknown 04/14/2025 7:11 AM EDT 04/14/2025 7:57 AM EDT us Camron Sabillon MD LAB BLOOD ORDERABLES Final Resul t Performing Organization Address City/[facility]/ZIP Co de Phone Number [facility] [address] [place] [address], [place] [phone] * (ABNORMAL) Thyroid stimulating hormone (04/14/2025 7:11 AM EDT) [facility] TSH 8.72(H) 0.40 - 4.00 mcIU/mL LAB CHEMISTRY METHOD 04/14/2025 9:31 AM EDT [facility] Blood Venous blood specimen / Unknown 04/14/2025 7:11 AM EDT 04/14/2025 7:57 AM EDT us Camron Sabillon MD LAB BLOOD ORDERABLES Final Resul t [facility] [address] [place] [address], [place] [phone] * (ABNORMAL) Comprehensive metabolic panel (04/14/2025 7:11 AM EDT) [facility] Sodium 142 133 - 145 mmol/L LAB CHEMISTRY METHOD 04/14/2025 8:40 AM [facility] Potassium 4.1 3.5 - 5.5 mmol/L LAB CHEMISTRY METHOD 04/14/2025 8:40 AM [facility] Chloride 108 96 - 110 mmol/L LAB CHEMISTRY METHOD 04/14/2025 8:40 AM [facility] CO2 30 21 - 32 mmol/L LAB CHEMISTRY METHOD 04/14/2025 8:40 AM [facility] Anion Gap 4 3 - 11 LAB CHEMISTRY METHOD 04/14/2025 8:40 AM [facility] Glucose 111(H) 70 - 100 mg/dL LAB CHEMISTRY METHOD 04/14/2025 8:40 AM [facility] BUN 15 5 - 25 mg/dL LAB CHEMISTRY METHOD 04/14/2025 8:40 AM [facility] Creatinine 1.04 0.50 - 1.10 mg/dL LAB CHEMISTRY METHOD 04/14/2025 8:40 AM [facility] LAB eGFR 64 >=60 mL/min/1. 73m2 LAB CHEMISTRY METHOD 04/14/2025 8:40 AM [facility] LAB Comment:Calculation based on the Chronic Kidney Disease Epidemiology Collaboration (CKD-EPI) equation refit without adjustment for race. BUN/Creatinine Ratio 14.4 LAB CHEMISTRY METHOD 04/14/2025 8:40 AM [facility] Calcium 9.4 8.5 - 10.5 mg/dL LAB CHEMISTRY METHOD 04/14/2025 8:40 AM [facility] AST (SGOT) 11 10 - 42 unit/L LAB CHEMISTRY METHOD 04/14/2025 8:40 AM [facility] LAB ALT (SGPT) 19 10 - 60 unit/L LAB CHEMISTRY METHOD 04/14/2025 8:40 AM [facility] LAB Alkaline Phosphatase 110 42 - 121 unit/L LAB CHEMISTRY METHOD 04/14/2025 8:40 AM [facility] LAB Total Protein 7.0 6.0 - 8.0 g/dL LAB CHEMISTRY METHOD 04/14/2025 8:40 AM [facility] LAB Albumin 3.4 3.2 - 5.0 g/dL LAB CHEMISTRY METHOD 04/14/2025 8:40 AM [facility] Total Bilirubin 0.5 0.0 - 1.4 mg/dL LAB CHEMISTRY METHOD 04/14/2025 8:40 AM [facility] Blood Venous blood specimen / Unknown 04/14/2025 7:11 AM EDT 04/14/2025 7:57 AM EDT us Camron Sabillon MD LAB BLOOD ORDERABLES Final Resul t [facility] [address] [place] [address], documented in this encounter Visit Diagnoses Diagnosis Other schizophrenia ([facility] V24, [facility] V28) Hypo-osmolality and hyponatremia Hypothyroidism, unspecified Type 2 diabetes mellitus without complications ([facility] V24, [facility] V28) documented in this encounter Care Teams Photography Assistant Relationship Specialty Start Date End Date Camron Sabillon MD [address] [place] [address] [address] BRIDGET Leone PCP - General Internal Medicine 11/26/24 documented as of this encounter
--- OUTSIDE RECORDS SUMMARY | 2025-06-08 14:41 | XMS_ITS | Encounter Summary ---
Author Organization [employer] Address [address] [place] [address] Care Team Providers Care Letter Stamping Machine Operator Name Role Phone Camron Sabillon MD Primary Care Provider Encounter Details Date Type Department Care Team (Late st Contact Info) Description 02/15/2025 Lab Requisition [facility] - Main Lab [address] [place] [address] Camron Sabillon MD [address] [place] [address] Dr [address] [place], [place] Other schizophrenia (CMS/[facility] V24, [facility] V28) Social History Tobacco Use [...] Routine 02/15/2025 6:43 AM EDT Other schizophrenia ([facility]/HCC V24, [facility] V28) CBC AND DIFFERENTIAL Routine 02/15/2025 6:43 AM EDT Other schizophrenia ([facility]/HCC V24, CMS/[facility] V28) documented in this encounter Results * (ABNORMAL) CBC auto differential (02/15/2025 6:43 AM EDT) WBC 7.4 4.8 - 10.8 K/[facility] LAB HEMETOLOGY METHOD 02/15/2025 8:27 AM EDT [facility] LAB RBC 4.10 3.80 - 4.80 M/[facility] LAB HEMETOLOGY METHOD 02/15/2025 8:27 AM EDT [facility] LAB Hemoglobin 11.7 11.5 - 16.0 g/dL LAB HEMETOLOGY METHOD 02/15/2025 8:27 AM [facility] LAB Hematocrit 37.4 35.0 - 47.0 % LAB HEMETOLOGY METHOD 02/15/2025 8:27 AM [facility] LAB MCV 91.9 79.0 - 98.0 FL LAB HEMETOLOGY METHOD 02/15/2025 8:27 AM [facility] LAB MCH 28.7 27.0 - 32.0 pcg LAB HEMETOLOGY METHOD 02/15/2025 8:27 AM [facility] LAB MCHC 31.3(L) 32.0 - 37.0 g/dL LAB HEMETOLOGY METHOD 02/15/2025 8:27 AM [facility] LAB RDW 14.1 11.0 - 15.0 % LAB HEMETOLOGY METHOD 02/15/2025 8:27 AM [facility] LAB Platelets 230 130 - 400 K/mcL LAB HEMETOLOGY METHOD 02/15/2025 8:27 AM [facility] LAB MPV 10.7 7.0 - 11.0 FL LAB HEMETOLOGY METHOD 02/15/2025 8:27 AM [facility] LAB NRBC 0.0 <1.0 % LAB HEMETOLOGY METHOD 02/15/2025 8:27 AM [facility] LAB NRBC Absolute 0.00 <0.10 K/mcL LAB HEMETOLOGY METHOD 02/15/2025 8:27 AM [facility] LAB Neutrophils Relative 42.6 % LAB HEMETOLOGY METHOD 02/15/2025 8:27 AM [facility] LAB Lymphocytes Relative 40.0 % LAB HEMETOLOGY METHOD 02/15/2025 8:27 AM [facility] LAB Monocytes Relative 11.7 % LAB HEMETOLOGY METHOD 02/15/2025 8:27 AM EDT [facility] LAB Eosinophils Relative 4.8 % LAB HEMETOLOGY METHOD 02/15/2025 8:27 AM EDT [facility] Basophils Relative 0.5 % LAB HEMETOLOGY METHOD 02/15/2025 8:27 AM EDT [facility] LAB Immature Granulocytes Relative 0.4 % LAB HEMETOLOGY METHOD 02/15/2025 8:27 AM EDT [facility] LAB Neutrophils Absolute 3.13 1.50 - 7.00 K/mcL LAB HEMETOLOGY METHOD 02/15/2025 8:27 AM EDT [facility] LAB Lymphocytes Absolute 2.94 1.00 - 5.00 K/mcL LAB HEMETOLOGY METHOD 02/15/2025 8:27 AM [facility] LAB Monocytes Absolute 0.86 0.20 - 1.00 K/mcL LAB HEMETOLOGY METHOD 02/15/2025 8:27 AM EDT [facility] LAB Eosinophils Absolute 0.35 0.00 - 0.50 K/mcL LAB HEMETOLOGY METHOD 02/15/2025 8:27 AM [facility] LAB Basophils Absolute 0.04 0.00 - 0.20 K/mcL LAB HEMETOLOGY METHOD 02/15/2025 8:27 AM T [facility] LAB Immature Granulocytes Absolute 0.03 0.00 - 0.03 K/mcL LAB HEMETOLOGY METHOD 02/15/2025 8:27 AM T [facility] Blood Venous blood specimen / Unknown 02/15/2025 6:43 AM EDT 02/15/2025 7:17 AM EDT us Camron Sabillon MD LAB BLOOD ORDERABLES Final Resul t [facility] [address] [place] [address], documented in this encounter Visit Diagnoses Diagnosis Other schizophrenia (CMS/[facility] V24, CMS/[facility] V28) documented in this encounter Care Teams Letter Stamping Machine Operator Relationship Specialty Start Date End Date Camron Sabillon MD [address] [place] [address] Dr [address] BRIDGET Leone PCP - General Internal Medicine 11/26/24 documented as of this encounter
--- OUTSIDE RECORDS SUMMARY | 2025-06-08 14:41 | XMS_ITS | Encounter Summary ---
Author Organization [employer] Address [address] [place] [address] Care Team Providers Care Mailing Manager Name Role Phone Camron Sabillon MD Primary Care Provider [phone] Encounter Details Date Type Department Care Team (Late st Contact Info) Description 01/18/2025 Lab Requisition [facility] - Main Lab 299 [facility] [place] [address] Camron Sabillon MD [address] [place] [address] Dr [address] [place], [place] Type 2 diabetes mellitus without complications [...] Diagnosis Comments CBC WITH AUTO DIFFERENTIAL Routine 01/18/2025 6:56 AM EDT Type 2 diabetes mellitus without complications (CMS/HCC V24, CMS/HCC V28) Other schizophrenia (CMS/HCC V24, CMS/HCC V28) CBC AND DIFFERENTIAL Routine 01/18/2025 6:56 AM EDT Type 2 diabetes mellitus without complications (CMS/HCC V24, CMS/HCC V28) Other schizophrenia (CMS/HCC V24, CMS/HCC V28) HEMOGLOBIN A1C Routine 01/18/2025 6:56 AM EDT Type 2 diabetes mellitus without complications (CMS/HCC V24, CMS/HCC V28) Other schizophrenia (CMS/HCC V24, CMS/HCC V28) COMPREHENSIVE METABOLIC PANEL Routine 01/18/2025 6:56 AM EDT Type 2 diabetes mellitus without complications ([facility]/HCC V24, [facility] V28) Other schizophrenia ([facility]/HCC V24, [facility] V28) documented in this encounter Results * (ABNORMAL) CBC auto differential (01/18/2025 6:56 AM EDT) [facility] WBC 7.5 4.8 - 10.8 K/mcL LAB HEMETOLOGY METHOD 01/18/2025 8:02 AM [facility] LAB RBC 4.00 3.80 - 4.80 M/mcL LAB HEMETOLOGY METHOD 01/18/2025 8:02 AM [facility] LAB Hemoglobin 11.4(L) 11.5 - 16.0 g/dL LAB HEMETOLOGY METHOD 01/18/2025 8:02 AM [facility] LAB Hematocrit 36.3 35.0 - 47.0 % LAB HEMETOLOGY METHOD 01/18/2025 8:02 AM [facility] LAB MCV 91.7 79.0 - 98.0 FL LAB HEMETOLOGY METHOD 01/18/2025 8:02 AM [facility] LAB MCH 28.8 27.0 - 32.0 pcg LAB HEMETOLOGY METHOD 01/18/2025 8:02 AM [facility] LAB MCHC 31.4(L) 32.0 - 37.0 g/dL LAB HEMETOLOGY METHOD 01/18/2025 8:02 AM [facility] LAB RDW 14.1 11.0 - 15.0 % LAB HEMETOLOGY METHOD 01/18/2025 8:02 AM [facility] LAB Platelets 246 130 - 400 K/mcL LAB HEMETOLOGY METHOD 01/18/2025 8:02 AM [facility] LAB MPV 10.7 7.0 - 11.0 FL LAB HEMETOLOGY METHOD 01/18/2025 8:02 AM [facility] NRBC 0.0 <1.0 % LAB HEMETOLOGY METHOD 01/18/2025 8:02 AM [facility] NRBC Absolute 0.00 <0.10 K/mcL LAB HEMETOLOGY METHOD 01/18/2025 8:02 AM [facility] Neutrophils Relative 53.6 % LAB HEMETOLOGY METHOD 01/18/2025 8:02 AM [facility] Lymphocytes Relative 31.7 % LAB HEMETOLOGY METHOD 01/18/2025 8:02 AM [facility] Monocytes Relative 9.2 % LAB HEMETOLOGY METHOD 01/18/2025 8:02 AM [facility] Eosinophils Relative 4.5 % LAB HEMETOLOGY METHOD 01/18/2025 8:02 AM [facility] Basophils Relative 0.7 % LAB HEMETOLOGY METHOD 01/18/2025 8:02 AM [facility] Immature Granulocytes Relative 0.3 % LAB HEMETOLOGY METHOD 01/18/2025 8:02 AM [facility] Neutrophils Absolute 4.01 1.50 - 7.00 K/mcL LAB HEMETOLOGY METHOD 01/18/2025 8:02 AM [facility] Lymphocytes Absolute 2.37 1.00 - 5.00 K/mcL LAB HEMETOLOGY METHOD 01/18/2025 8:02 AM [facility] Monocytes Absolute 0.69 0.20 - 1.00 K/mcL LAB HEMETOLOGY METHOD 01/18/2025 8:02 AM [facility] Eosinophils Absolute 0.34 0.00 - 0.50 K/mcL LAB HEMETOLOGY METHOD 01/18/2025 8:02 AM [facility] Basophils Absolute 0.05 0.00 - 0.20 K/[facility] LAB HEMETOLOGY METHOD 01/18/2025 8:02 AM EDT [facility] Immature Granulocytes Absolute 0.02 0.00 - 0.03 K/[facility] LAB HEMETOLOGY METHOD 01/18/2025 8:02 AM EDT [facility] Blood Venous blood specimen / Unknown 01/18/2025 6:56 AM EDT 01/18/2025 7:47 AM EDT us Camron Sabillon MD LAB BLOOD ORDERABLES Final Resul t Performing Organization Address [facility]/ZIP Co de Phone Number [facility] [address] [place] [address], [place] [phone] * (ABNORMAL) Hemoglobin A1c (01/18/2025 6:56 AM EDT) Hemoglobin A1C 6.5(H) <6.5 % LAB CHEMISTRY METHOD 01/18/2025 10:44 AM EDT [facility] Mean Bld Glu Estim. 140 mg/dL LAB CHEMISTRY METHOD 01/18/2025 10:44 AM EDT [facility] Blood Venous blood specimen / Unknown 01/18/2025 6:56 AM EDT 01/18/2025 7:47 AM EDT us Camron Sabillon MD LAB BLOOD ORDERABLES Final Resul t Performing Organization Address City/[facility]/ZIP Co de Phone Number [facility] [address] [place] [address], [place] [phone] * (ABNORMAL) Comprehensive metabolic panel (01/18/2025 6:56 AM EDT) Sodium 141 133 - 145 mmol/L LAB CHEMISTRY METHOD 01/18/2025 8:20 AM EDT [facility] Potassium 3.7 3.5 - 5.5 mmol/L LAB CHEMISTRY METHOD 01/18/2025 8:20 AM [facility] Chloride 105 96 - 110 mmol/L LAB CHEMISTRY METHOD 01/18/2025 8:20 AM [facility] CO2 30 21 - 32 mmol/L LAB CHEMISTRY METHOD 01/18/2025 8:20 AM [facility] Anion Gap 6 3 - 11 LAB CHEMISTRY METHOD 01/18/2025 8:20 AM [facility] Glucose 103(H) 70 - 100 mg/dL LAB CHEMISTRY METHOD 01/18/2025 8:20 AM [facility] BUN 17 5 - 25 mg/dL LAB CHEMISTRY METHOD 01/18/2025 8:20 AM [facility] Creatinine 0.80 0.50 - 1.10 mg/dL LAB CHEMISTRY METHOD 01/18/2025 8:20 AM [facility] eGFR 87 >=60 mL/min/1. 73m2 LAB CHEMISTRY METHOD 01/18/2025 8:20 AM [facility] Comment:Calculation based on the Chronic Kidney Disease Epidemiology Collaboration (CKD-EPI) equation refit without adjustment for race. BUN/Creatinine Ratio 21.3 LAB CHEMISTRY METHOD 01/18/2025 8:20 AM [facility] Calcium 8.9 8.5 - 10.5 mg/dL LAB CHEMISTRY METHOD 01/18/2025 8:20 AM [facility] AST (SGOT) 11 10 - 42 unit/L LAB CHEMISTRY METHOD 01/18/2025 8:20 AM [facility] ALT (SGPT) 13 10 - 60 unit/L LAB CHEMISTRY METHOD 01/18/2025 8:20 AM [facility] Alkaline Phosphatase 107 42 - 121 unit/L LAB CHEMISTRY METHOD 01/18/2025 8:20 AM [facility] Total Protein 6.4 6.0 - 8.0 g/dL LAB CHEMISTRY METHOD 01/18/2025 8:20 AM EDT [facility] Albumin 3.0(L) 3.2 - 5.0 g/dL LAB CHEMISTRY METHOD 01/18/2025 8:20 AM EDT [facility] Total Bilirubin 0.3 0.0 - 1.4 mg/dL LAB CHEMISTRY METHOD 01/18/2025 8:20 AM EDT [facility] Blood Venous blood specimen / Unknown 01/18/2025 6:56 AM EDT 01/18/2025 7:47 AM EDT us Camron Sabillon MD LAB BLOOD ORDERABLES Final Resul t [facility] [address] [place] [address], [place] [phone] documented in this encounter Visit Diagnoses Diagnosis Type 2 diabetes mellitus without complications (CMS/HCC V24, CMS/HCC V28) Other schizophrenia (CMS/HCC V24, CMS/HCC V28) documented in this encounter Care Teams Mailing Manager Relationship Specialty Start Date End Date Camron Sabillon MD [address] [place], [place] PCP - General Internal Medicine 11/26/24 documented as of this encounter
--- OUTSIDE RECORDS SUMMARY | 2025-06-08 14:41 | XMS_ITS | Encounter Summary ---
Author Organization [email or web address] Address [address] [place] [address] Care Team Providers Care Track Laying Equipment Operator Name Role Phone Camron Sabillon MD Primary Care Provider Encounter Details Date Type Department Care Team (Late st Contact Info) Description 12/20/2024 Lab Requisition [facility] - Main Lab [address] [place] [address] Camron Sabillon MD [address] [place] [address] Dr [address] [place], [place] Other schizophrenia (CMS/HCC V24, CMS/HCC V28) [...] Diagnosis Comments CBC WITH AUTO DIFFERENTIAL Routine 12/20/2024 6:39 AM EDT Other schizophrenia ([facility]) CBC AND DIFFERENTIAL Routine 12/20/2024 6:39 AM EDT Other schizophrenia ([facility]) documented in this encounter Results * (ABNORMAL) CBC auto differential (12/20/2024 6:39 AM EDT) WBC 7.2 4.8 - 10.8 K/[facility] LAB HEMETOLOGY METHOD 12/20/2024 8:28 AM EDT [facility] LAB RBC 3.90 3.80 - 4.80 M/[facility] LAB HEMETOLOGY METHOD 12/20/2024 8:28 AM EDT [facility] LAB Hemoglobin 11.3(L) 11.5 - 16.0 g/dL LAB HEMETOLOGY METHOD 12/20/2024 8:28 AM EDT [facility] LAB Hematocrit 35.8 35.0 - 47.0 % LAB HEMETOLOGY METHOD 12/20[facility]24 [facility] MCV 91.3 79.0 - 98.0 FL LAB HEMETOLOGY METHOD 12/20/2024 8[facility] MCH 28.8 27.0 - 32.0 pcg LAB HEMETOLOGY METHOD 12/20/2024 8:28 AM [facility] LAB MCHC 31.6(L) 32.0 - 37.0 g/dL LAB HEMETOLOGY METHOD 12/20/2024 8:28 AM [facility] LAB RDW 14.1 11.0 - 15.0 % LAB HEMETOLOGY METHOD 12/20/2024 8:28 AM [facility] LAB Platelets 228 130 - 400 K/mcL LAB HEMETOLOGY METHOD 12/20/2024 8:28 AM [facility] LAB MPV 10.9 7.0 - 11.0 FL LAB HEMETOLOGY METHOD 12/20/2024 8:28 AM [facility] LAB NRBC 0.0 <1.0 % LAB HEMETOLOGY METHOD 12/20/2024 8:28 AM [facility] LAB NRBC Absolute 0.00 <0.10 K/mcL LAB HEMETOLOGY METHOD 12/20/2024 8:28 AM [facility] LAB Neutrophils Relative 52.3 % LAB HEMETOLOGY METHOD 12/20/2024 8:28 AM [facility] LAB Lymphocytes Relative 33.4 % LAB HEMETOLOGY METHOD 12/20/2024 8:28 AM [facility] LAB Monocytes Relative 10.7 % LAB HEMETOLOGY METHOD 12/20/2024 8:28 AM EDT [facility] LAB Eosinophils Relative 2.9 % LAB HEMETOLOGY METHOD 12/20/2024 8:28 AM EDT [facility] LAB Basophils Relative 0.4 % LAB HEMETOLOGY METHOD 12/20/2024 8:28 AM EDT [facility] LAB Immature Granulocytes Relative 0.3 % LAB HEMETOLOGY METHOD 12/20/2024 8:28 AM EDT [facility] LAB Neutrophils Absolute 3.78 1.50 - 7.00 K/mcL LAB HEMETOLOGY METHOD 12/20/2024 8:28 AM EDT [facility] LAB Lymphocytes Absolute 2.41 1.00 - 5.00 K/mcL LAB HEMETOLOGY METHOD 12/20/2024 8:28 AM EDT [facility] LAB Monocytes Absolute 0.77 0.20 - 1.00 K/mcL LAB HEMETOLOGY METHOD 12/20/2024 8:28 AM EDT [facility] LAB Eosinophils Absolute 0.21 0.00 - 0.50 K/mcL LAB HEMETOLOGY METHOD 12/20/2024 8:28 AM EDT [facility] LAB Basophils Absolute 0.03 0.00 - 0.20 K/mcL LAB HEMETOLOGY METHOD 12/20/2024 8:28 AM EDT [facility] LAB Immature Granulocytes Absolute 0.02 0.00 - 0.03 K/mcL LAB HEMETOLOGY METHOD 12/20/2024 8:28 AM EDT [facility] LAB Blood Venous blood specimen / Unknown 12/20/2024 6:39 AM EDT 12/20/2024 8:14 AM EDT us Camron Sabillon MD LAB BLOOD ORDERABLES Final Resul t [facility] LAB [address] [place] [address], documented in this encounter Visit Diagnoses Diagnosis Other schizophrenia (CMS/[facility] V24, CMS/[facility] V28) documented in this encounter Care Teams Track Laying Equipment Operator Relationship Specialty Start Date End Date Camron Sabillon MD [address] [place] [address] Dr [address] BRIDGET Leone PCP - General Internal Medicine 11/26/24 documented as of this encounter
--- OUTSIDE RECORDS SUMMARY | 2025-06-08 14:41 | XMS_ITS | Encounter Summary ---
Author Organization [employer] Address [address] [place] [address] Care Team Providers Care Vessel Crew Member Name Role Phone Camron Sabillon MD Primary Care Provider [phone] Encounter Details Date Type Department Care Team (Late st Contact Info) Description 11/26/2024 Lab Requisition [facility] - Main Lab [address] [facility] [place] [address] Camron Sabillon MD [address] [place] [address] Dr [address] [place], [place] Encounter for therapeutic drug level monitoring; Mood disorder due to known physiological condition, unspecified; Hyperlipidemia, unspecified Social History Tobacco Use Types Packs/Day Years [...] PANEL WITH REFLEX TO DIRECT LDL Routine 11/26/2024 6:35 AM EST Encounter for therapeutic drug level monitoring Mood disorder due to known physiological condition, unspecified Hyperlipidemia, unspecified CBC WITH AUTO DIFFERENTIAL Routine 11/26/2024 6:35 AM EST Encounter for therapeutic drug level monitoring Mood disorder due to known physiological condition, unspecified Hyperlipidemia, unspecified CBC AND DIFFERENTIAL Routine 11/26/2024 6:35 AM EST Encounter for therapeutic drug level monitoring Mood disorder due to known physiological condition, unspecified Hyperlipidemia, unspecified HEPATIC FUNCTION PANEL Routine 11/26/2024 6:35 AM EST Encounter for therapeutic drug level monitoring Mood disorder due to known physiological condition, unspecified Hyperlipidemia, unspecified documented in this encounter Results * (ABNORMAL) CBC auto differential (11/26/2024 6:35 AM EST) [facility] WBC 7.2 4.8 - 10.8 K/mcL LAB HEMETOLOGY METHOD 11/26/2024 10:05 AM [facility] LAB RBC 4.00 3.80 - 4.80 M/mcL LAB HEMETOLOGY METHOD 11/26/2024 10:05 AM [facility] LAB Hemoglobin 11.4(L) 11.5 - 16.0 g/dL LAB HEMETOLOGY METHOD 11/26/2024 10:05 AM [facility] LAB Hematocrit 37.2 35.0 - 47.0 % LAB HEMETOLOGY METHOD 11/26/2024 10:05 AM [facility] LAB MCV 93.9 79.0 - 98.0 FL LAB HEMETOLOGY METHOD 11/26/2024 10:05 AM [facility] LAB MCH 28.8 27.0 - 32.0 pcg LAB HEMETOLOGY METHOD 11/26/2024 10:05 AM [facility] LAB MCHC 30.6(L) 32.0 - 37.0 g/dL LAB HEMETOLOGY METHOD 11/26/2024 10:05 AM [facility] LAB RDW 14.1 11.0 - 15.0 % LAB HEMETOLOGY METHOD 11/26/2024 10:05 AM [facility] LAB Platelets 242 130 - 400 K/mcL LAB HEMETOLOGY METHOD 11/26/2024 10:05 AM [facility] LAB MPV 10.8 7.0 - 11.0 FL LAB HEMETOLOGY METHOD 11/26/2024 10:05 AM [facility] LAB NRBC 0.0 <1.0 % LAB HEMETOLOGY METHOD 11/26/2024 10:05 AM [facility] LAB NRBC Absolute 0.00 <0.10 K/mcL LAB HEMETOLOGY METHOD 11/26/2024 10:05 AM [facility] LAB Neutrophils Relative 50.3 % LAB HEMETOLOGY METHOD 11/26/2024 10:05 AM [facility] LAB Lymphocytes Relative 34.3 % LAB HEMETOLOGY METHOD 11/26/2024 10:05 AM [facility] LAB Monocytes Relative 11.0 % LAB HEMETOLOGY METHOD 11/26/2024 10:05 AM [facility] LAB Eosinophils Relative 3.7 % LAB HEMETOLOGY METHOD 11/26/2024 10:05 AM [facility] LAB Basophils Relative 0.4 % LAB HEMETOLOGY METHOD 11/26/2024 10:05 AM [facility] LAB Immature Granulocytes Relative 0.3 % LAB HEMETOLOGY METHOD 11/26/2024 10:05 AM [facility] LAB Neutrophils Absolute 3.64 1.50 - 7.00 K/[facility] LAB HEMETOLOGY METHOD 11/26/2024 10:05 AM [facility] LAB Lymphocytes Absolute 2.48 1.00 - 5.00 K/[facility] LAB HEMETOLOGY METHOD 11/26/2024 10:05 AM [facility] LAB Monocytes Absolute 0.80 0.20 - 1.00 K/[facility] LAB HEMETOLOGY METHOD 11/26/2024 10:05 AM [facility] LAB Eosinophils Absolute 0.27 0.00 - 0.50 K/[facility] LAB HEMETOLOGY METHOD 11/26/2024 10:05 AM [facility] LAB Basophils Absolute 0.03 0.00 - 0.20 K/[facility] LAB HEMETOLOGY METHOD 11/26/2024 10:05 AM [facility] LAB Immature Granulocytes Absolute 0.02 0.00 - 0.03 K/mcL LAB HEMETOLOGY METHOD 11/26/2024 10:05 AM [facility] LAB Blood Venous blood specimen / Unknown 11/26/2024 6:35 AM EST 11/26/2024 7:53 AM EST us Camron Sabillon MD LAB BLOOD ORDERABLES Final Resul t Performing Organization Address [facility]/ZIP Co de Phone Number [facility] [address] [place] [address], [place] [phone] * (ABNORMAL) Lipid panel with reflex to direct LDL (11/26/2024 6:35 AM EST) Cholesterol 101 0 - 200 mg/dL LAB CHEMISTRY METHOD 11/26/2024 8:57 AM EST [facility] Triglycerides 135 0 - 150 mg/dL LAB CHEMISTRY METHOD 11/26/2024 8:57 AM EST [facility] HDL 30(L) >=40 mg/dL LAB CHEMISTRY METHOD 11/26/2024 8:57 AM EST [facility] LDL Calculated 44 0 - 100 mg/dL LAB CHEMISTRY METHOD 11/26/2024 8:57 AM EST [facility] VLDL Cholesterol Tanner 27 mg/dL LAB CHEMISTRY METHOD 11/26/2024 8:57 AM EST [facility] Non HDL Chol. (LDL+VLDL) 71 <145 mg/dL LAB CHEMISTRY METHOD 11/26/2024 8:57 AM [facility] Chol/HDL Ratio 3.4 0.0 - 4.4 LAB CHEMISTRY METHOD 11/26/2024 8:57 AM [facility] LAB Blood Venous blood specimen / Unknown 11/26/2024 6:35 AM EST 11/26/2024 7:53 AM EST us Camron Sabillon MD LAB BLOOD ORDERABLES Final Resul t Performing Organization Address [facility]/ZIP Co de Phone Number [facility] [address] [place] [address], [place] [phone] * (ABNORMAL) Hepatic function panel (11/26/2024 6:35 AM EST) Total Protein 6.1 6.0 - 8.0 g/dL LAB CHEMISTRY METHOD 11/26/2024 8:57 AM EST [facility] Albumin 3.0(L) 3.2 - 5.0 g/dL LAB CHEMISTRY METHOD 11/26/2024 8:57 AM EST [facility] Total Bilirubin 0.4 0.0 - 1.4 mg/dL LAB CHEMISTRY METHOD 11/26/2024 8:57 AM EST [facility] Bilirubin, Direct <0.1 0.0 - 0.3 mg/dL LAB CHEMISTRY METHOD 11/26/2024 8:57 AM [facility] Bilirubin, Indirect LAB CHEMISTRY METHOD 11/26/2024 8:57 AM [facility] Comment:Unable to calculate Indirect Bilirubin. ALT (SGPT) 15 10 - 60 unit/L LAB CHEMISTRY METHOD 11/26/2024 8:57 AM [facility] AST (SGOT) 11 10 - 42 unit/L LAB CHEMISTRY METHOD 11/26/2024 8:57 AM [facility] Alkaline Phosphatase 82 42 - 121 unit/L LAB CHEMISTRY METHOD 11/26/2024 8:57 AM [facility] LAB Blood Venous blood specimen / Unknown 11/26/2024 6:35 AM EST 11/26/2024 7:53 AM EST us Camron Sabillon MD LAB BLOOD ORDERABLES Final Resul t [facility] [address] [place] [address], documented in this encounter Visit Diagnoses Diagnosis Encounter for therapeutic drug level monitoring Mood disorder due to known physiological condition, unspecified Hyperlipidemia, unspecified documented in this encounter Care Teams Vessel Crew Member Relationship Specialty Start Date End Date Camron Sabillon MD [address] [place] [address] Dr [address] [facility] [place], [place] PCP - General Internal Medicine 11/26/24 documented as of this encounter
--- OUTSIDE RECORDS SUMMARY | 2025-06-08 14:41 | XMS_ITS | Encounter Summary ---
Author Organization [employer] Address [address] [place] [address] Care Team Providers Care Upholstery Instructor Name Role Phone Camron Sabillon MD Primary Care Provider [phone] Encounter Details Date Type Department Care Team (Late st Contact Info) Description 03/14/2025 Lab Requisition [facility] - Main Lab [address] [facility] [place] [address] Camron Sabillon MD [address] [place] [address] Dr [address] [place], [place] Other schizophrenia (CMS/[facility] V24, [facility] V28) Social History Tobacco Use [...] Diagnosis Comments CBC WITH AUTO DIFFERENTIAL Routine 03/14/2025 7:03 AM EDT Other schizophrenia ([facility]/HCC V24, [facility] V28) CBC AND DIFFERENTIAL Routine 03/14/2025 7:03 AM EDT Other schizophrenia ([facility]/HCC V24, CMS/[facility] V28) documented in this encounter Results * (ABNORMAL) CBC auto differential (03/14/2025 7:03 AM EDT) WBC 8.5 4.8 - 10.8 K/[facility] LAB HEMETOLOGY METHOD 03/14/2025 7:[address] [facility] RBC 4.00 3.80 - 4.80 M/[facility] LAB HEMETOLOGY METHOD 03/14/2025 7:[address] [facility] Hemoglobin 11.1(L) 11.5 - 16.0 g/dL LAB HEMETOLOGY METHOD 03/14/2025 7:48 AM [facility] LAB Hematocrit 36.3 35.0 - 47.0 % LAB HEMETOLOGY METHOD 03/14/2025 7:48 AM [facility] LAB MCV 91.4 79.0 - 98.0 FL LAB HEMETOLOGY METHOD 03/14/2025 7:48 AM [facility] LAB MCH 28.0 27.0 - 32.0 pcg LAB HEMETOLOGY METHOD 03/14/2025 7:48 AM [facility] LAB MCHC 30.6(L) 32.0 - 37.0 g/dL LAB HEMETOLOGY METHOD 03/14/2025 7:48 AM [facility] LAB RDW 14.5 11.0 - 15.0 % LAB HEMETOLOGY METHOD 03/14/2025 7:48 AM [facility] LAB Platelets 253 130 - 400 K/mcL LAB HEMETOLOGY METHOD 03/14/2025 7:48 AM [facility] LAB MPV 10.7 7.0 - 11.0 FL LAB HEMETOLOGY METHOD 03/14/2025 7:48 AM [facility] NRBC 0.0 <1.0 % LAB HEMETOLOGY METHOD 03/14/2025 7:48 AM [facility] NRBC Absolute 0.00 <0.10 K/mcL LAB HEMETOLOGY METHOD 03/14/2025 7:48 AM [facility] Neutrophils Relative 55.5 % LAB HEMETOLOGY METHOD 03/14/2025 7:48 AM [facility] Lymphocytes Relative 31.8 % LAB HEMETOLOGY METHOD 03/14/2025 7:48 AM [facility] Monocytes Relative 9.1 % LAB HEMETOLOGY METHOD 03/14/2025 7:[address] [facility] Eosinophils Relative 3.0 % LAB HEMETOLOGY METHOD 03/14/2025 7:[address] [facility] Basophils Relative 0.4 % LAB HEMETOLOGY METHOD 03/14/2025 7:[address] [facility] Immature Granulocytes Relative 0.2 % LAB HEMETOLOGY METHOD 03/14/2025 7:[address] [facility] Neutrophils Absolute 4.71 1.50 - 7.00 K/mcL LAB HEMETOLOGY METHOD 03/14/2025 7:[address] [facility] Lymphocytes Absolute 2.69 1.00 - 5.00 K/mcL LAB HEMETOLOGY METHOD 03/14/2025 7:[address] [facility] Monocytes Absolute 0.77 0.20 - 1.00 K/mcL LAB HEMETOLOGY METHOD 03/14/2025 7:[address] [facility] Eosinophils Absolute 0.25 0.00 - 0.50 K/mcL LAB HEMETOLOGY METHOD 03/14/2025 7:[address] [facility] Basophils Absolute 0.03 0.00 - 0.20 K/mcL LAB HEMETOLOGY METHOD 03/14/2025 7:[address] [facility] Immature Granulocytes Absolute 0.02 0.00 - 0.03 K/mcL LAB HEMETOLOGY METHOD 03/14/2025 7:[address] [facility] Blood Venous blood specimen / Unknown 03/14/2025 7:03 AM EDT 03/14/2025 7:33 AM EDT us Camron Sabillon MD LAB BLOOD ORDERABLES Final Resul t [facility] [address] [place] [address], documented in this encounter Visit Diagnoses Diagnosis Other schizophrenia (CMS/[facility] V24, [facility] V28) documented in this encounter Care Teams Upholstery Instructor Relationship Specialty Start Date End Date Camron Sabillon MD [address] [place] [address] Dr [address] BRIDGET Leone PCP - General Internal Medicine 11/26/24 documented as of this encounter
== END 2025-06-08 12:00 | disposition home or self-care (01) ==
LOC: HO.MAMMO 11:59
PROVIDERS: PCP Hospitalist; Visit Provider Hospitalist
DX: N64.4 Mastodynia (principal)
CPT/HCPCS: 76642; 77062; 77066

== ENCOUNTER → 2025-06-08 12:30 | Outpatient (BNV) | payer MEDICARE, MEDICAID, SELFPAY | PROVIDERS: PCP Hospitalist; Visit Provider Internal Medicine | DX: N64.4 Mastodynia (principal) | CPT/HCPCS: 76642; 77066; G0279 ==